=== PATIENT | male | born 1990 | race Caucasian/White ===

== ENCOUNTER 2019-09-10 08:02 | Inpatient (IN) | payer SELFPAY ==
[2019-09-10] VITALS (7 sets, daily range): BP systolic 105–139; BP diastolic 63–81; PULSE 102–114; RESP 16–19; TEMP 36.6–38; O2SAT 94–99; BMI 47.0
--- NOTE | 2019-09-10 08:06 | ED_ITS ---
HPI - General Adult General: Chief complaint: General Medical Stated complaint: VOMITING, RT LEG INFLAMED, BODY ACHES, REDNESS ON Time Seen by Provider: 09/10/19 08:06 History of Present Illness: HPI narrative: He 1-year-old male presents to the emergency room with right leg erythema and swelling woke him up around 3:00 this morning said fever with nausea and vomiting. He has congenital lymphedema that is quite severe in the left leg but does not extend to the right leg. He denies abdominal pain denies any hematemesis or coffee-ground emesis with the vomiting he has not had any diarrhea with denies any chest pain shortness of breath has not been any difficulty with bowel movements. They have been at his baseline. The left leg is swollen tender red and inflamed. He is not on any blood thinners. Onset (ago): hour(s) (Began at 3 AM on the day of presentation) Location: right and lower extremity Radiation: non-radiation Severity: mild Quality: burning Relieving factors: none Exacerbating factors: none Associated symptoms: Reports fevers/chills and vomiting; Deny chest pain, dyspnea, malaise or rash Treatments prior to arrival: none Review of Systems Const: Denies: fever(s), chills, body aches, change in appetite, fatigue or malaise ENMT: Denies: throat pain, ear or mastoid pain, nasal discharge or nasal congestion Card: Reports: swelling of feet/ankles and dyspnea on exertion; Denies: chest pain, edema or orthopnea Resp: Denies: dyspnea, productive cough or non-productive cough GI: Reports: vomiting : Denies: flank pain, dysuria, urinary frequency or urinary urgency Skin/Breast: Denies: rash or pruritus PFSH ED PFSH: Medical History GERD (gastroesophageal reflux disease) Lymphedema Obesity Surgical History History of appendectomy Family History Other Diabetes Hypertension Social History Smoking and tobacco status: never smoked Alcohol intake: never Substance/Drug Use: never Physical Exam Const: COMMON NORMALS: no acute distress GENERAL APPEARANCE: cooperative and comfortable ORIENTATION/CONSCIOUSNESS: Yes awake, Yes oriented to person, Yes oriented to place and Yes oriented to time HENMT: COMMON NORMALS: normocephalic, atraumatic, hearing grossly normal bilaterally, external ears normal, EAC's normal, TM's normal bilaterally, Normal nasal mucous membranes and turbinates present, moist oral mucous membranes and oropharynx normal HEAD & SCALP: normocephalic and atraumatic NOSE: Normal nasal mucous membranes and turbinates present EXTERNAL EAR: Yes external ears normal EXTERNAL AUDITORY CANAL: EAC's normal TYMPANIC MEMBRANE: TM's normal bilaterally Eye: COMMON NORMALS: Equal, round and reactive pupils present, EOMs intact bilaterally, conjunctivae normal and no scleral icterus CONJUNCTIVA: Yes conjunctivae normal PUPIL: Yes Equal, round and reactive pupils present Neck/C-Spine: COMMON NORMALS: full ROM, no lymphadenopathy, supple and no JVD Lymph: LYMPHATIC: no lymphadenopathy noted and no lymphedema noted Resp: COMMON NORMALS: normal respiratory effort, No retractions, No use of accessory muscles and clear to auscultation bilaterally AUSCULTATION: clear to auscultation bilaterally Cardio: COMMON NORMALS: no JVD, regular rate, regular rhythm and No murmurs present (Cardio) RATE: regular rate RHYTHM: regular rhythm GI: COMMON NORMALS: Soft to palpation and No hepatosplenomegaly present AUSCULTATION: Yes normoactive bowel sounds PALPATION: Yes Soft to palpation, No Tenderness to palpation present (GI), No Guarding due to palpation present (GI) and Yes No hepatosplenomegaly present Extremity: NARRATIVE EXTREMITY EXAM: Severe lymphedema that appears to be chronic of the left leg patient reports that that is baseline The right leg is has patchy red and inflamed areas that are tender to the touch minimally indurated no vesicles no skin breakdown or ulceration or decubitus ulcers are noted. There is no draining or abscess noted. GENERAL: Yes edema Neuro: SENSORIUM/ORIENTATION: Yes oriented to person, Yes oriented to place and Yes oriented to time Skin: COMMON NORMALS: no rashes or lesions noted GENERAL SKIN EXAM: no rashes or lesions noted Course Vital Signs: Vital signs: Vital Signs Temperature 100.4 F H 09/10/19 12:00 Pulse Rate 102 H 09/10/19 12:00 Respiratory Rate 18 09/10/19 12:00 Blood Pressure 118/81 09/10/19 12:00 Pulse Oximetry 99 09/10/19 12:00 MDM - General Adult MDM Narrative: Medical decision making narrative: Discussed with Dr. Schuster will admit to [facility] for IV antibiotics he will be the attending. Lab Data: Labs: Lab Results 09/10/19 09/10/19 09/10/19 Range/Units 09:20 09:20 09:20 WBC 26.3 H (4.0-10.0) 10^3/ uL RBC 5.53 H (4.1-5.3) 10^6/u L Hgb 14.8 (11.7-16.6) g/dL Hct 47.3 (42.0-52.0) % MCV 85.5 (80-94) fL MCH 26.8 L (28.0-34.0) pg MCHC 31.3 (30.0-36.0) g/dL RDW 13.4 (12.1-15.1) % Plt Count 279 (130-400) 10^3/c mm MPV 9.6 (7.4-10.4) fL Neut % (Auto) 96.3 % Lymph % (Auto) 1.1 % [place] % (Auto) 1.8 % Eos % (Auto) 0.0 % Baso % (Auto) 0.2 % Neut # (Auto) 25.4 H (1.8-7.7) 10^3/u L Lymph # (Auto) 0.3 L (0.8-4.8) 10^3/u L [place] # (Auto) 0.5 (0.2-0.9) 10^3/u L Eos # (Auto) 0.0 (0.0-0.8) 10^3/u L Baso # (Auto) 0.0 (0.0-0.1) 10^3/u L Nucleated RBC % (a uto) 0 % Nucleated RBCs # 0.0 /100WBC Sodium 136 (136-145) mmol/L Potassium 3.8 (3.5-5.1) mmol/L Chloride 99 (98-107) mmol/L Carbon Dioxide 26 (22-29) mmol/L Anion Gap 14.8 (5-19) BUN 15 (6-20) mg/dL Creatinine 1.1 (0.7-1.2) mg/dL GFR Calculation 78.1 L (90-130) mL/min Glucose 99 (65-115) mg/dL Calculated Osmolal ity 278 L (285-295) mOsm/k g Lactate 2.1 (0.5-2.2) mmol/L Calcium 9.6 (8.5-10.5) mg/dL Total Bilirubin 0.5 (0.15-1.2) mg/dL AST 31 (0-40) U/L ALT 48 H (0-41) U/L Alkaline Phosphata se 72 (40-130) IU/L Total Protein 6.7 (6.6-8.7) g/dL Albumin 3.9 (3.5-5.2) g/dL Globulin 2.8 (1.3-4.6) g/dL TSH (0.27-4.20) uIU/ mL Urine Color (Yellow) Urine Appearance (CLEAR) Urine pH (5-7) Ur Specific Gravit y (1.005-1.030) Urine Protein (Negative) Urine Glucose (UA) (Normal) Urine Ketones (Negative) Urine Blood (Negative) Urine Nitrate (Negative) Urine Bilirubin (NEGATIVE) Urine Urobilinogen (Negative) mg/dL Ur Leukocyte Deisy ase (Negative) 09/10/19 09/10/19 Range/Units 09:20 09:32 WBC (4.0-10.0) 10^3/ uL RBC (4.1-5.3) 10^6/u L Hgb (11.7-16.6) g/dL Hct (42.0-52.0) % MCV (80-94) fL MCH (28.0-34.0) pg MCHC (30.0-36.0) g/dL RDW (12.1-15.1) % Plt Count (130-400) 10^3/c mm MPV (7.4-10.4) fL Neut % (Auto) % Lymph % (Auto) % [place] % (Auto) % Eos % (Auto) % Baso % (Auto) % Neut # (Auto) (1.8-7.7) 10^3/u L Lymph # (Auto) (0.8-4.8) 10^3/u L [place] # (Auto) (0.2-0.9) 10^3/u L Eos # (Auto) (0.0-0.8) 10^3/u L Baso # (Auto) (0.0-0.1) 10^3/u L Nucleated RBC % (a uto) % Nucleated RBCs # /100WBC Sodium (136-145) mmol/L Potassium (3.5-5.1) mmol/L Chloride (98-107) mmol/L Carbon Dioxide (22-29) mmol/L Anion Gap (5-19) BUN (6-20) mg/dL Creatinine (0.7-1.2) mg/dL GFR Calculation (90-130) mL/min Glucose (65-115) mg/dL Calculated Osmolal ity (285-295) mOsm/k g Lactate (0.5-2.2) mmol/L Calcium (8.5-10.5) mg/dL Total Bilirubin (0.15-1.2) mg/dL AST (0-40) U/L ALT (0-41) U/L Alkaline Phosphata se (40-130) IU/L Total Protein (6.6-8.7) g/dL Albumin (3.5-5.2) g/dL Globulin (1.3-4.6) g/dL TSH 1.01 (0.27-4.20) uIU/ mL Urine Color Yellow (Yellow) Urine Appearance Clear (CLEAR) Urine pH 7.0 (5-7) Ur Specific Gravit y 1.005 (1.005-1.030) Urine Protein Neg (Negative) Urine Glucose (UA) Norm (Normal) Urine Ketones Negative (Negative) Urine Blood Neg (Negative) Urine Nitrate Negative (Negative) Urine Bilirubin Neg (NEGATIVE) Urine Urobilinogen Norm (Negative) mg/dL Ur Leukocyte Deisy ase Negative (Negative) Discharge Plan Discharge Admit Provider: Valentin Gonzalez Clinical Impression: Cellulitis, Lymphedema, Obesity Condition: Stable Interventions: ED Discharge Assessment Last Done: 09/10/19 11:32 ED Charges Last Done: 09/10/19 11:32 Discharge Date/Time: 09/10/19 11:37 Coding Level of Care Code ED Manager Cardiac Cath for Andig Israel
--- NOTE | 2019-09-10 08:48 | USCV_ITS ---
Garo Scruggs Age: 29 Gender: M : 1990 Exam Date: 09/10/2019 09:05 Ordering Phys: Josué Canas DO Technologist: Naren Almeida Exam Location: [facility] [place]_ Indication: RT LEG PAIN AND SWELLING HISTORY: Lower extremity pain. PROCEDURES: Venous duplex imaging was performed in only the right lower extremity. The following venous structures were evaluated: common femoral vein, profunda vein, proximal portion of the greater saphenous vein, superficial femoral vein, and the popliteal vein. In addition, the posterior tibial and peroneal trunk were evaluated. FINDINGS: Normal 2-D Doppler and augmentation and compressibility throughout the lower extremity venous structures. Additional imaging through the proximal calf veins also reveals no thrombus. Limited evaluation of the greater saphenous vein is patent with no thrombus. CONCLUSIONS No DVT right lower extremity. Dr. Debra Azevedo DO (Electronically Signed) Final Date: 10 Sep 2019 11:56 S
--- NOTE | 2019-09-10 08:48 | ECG_ITS ---
Measurements Intervals [place] Rate: 107 P: 37 WA: 132 QRS: 44 QRSD: 110 T: 36 QT: 310 QTc: 415 SINUS TACHYCARDIA INCOMPLETE RIGHT BUNDLE BRANCH BLOCK [90+ ms QRS DURATION, TERMINAL R IN V1/V2, 40+ ms S IN I/aVL/V4/V5/V6] ABNORMAL RHYTHM ECG No previous ECG available for comparison Electronically Signed On 09-10-2019 20:31:33 CDT by Hortencia Hyman M.D. [email or web address]
--- NOTE | 2019-09-10 09:21 | XR_ITS ---
WS: [id number] PORTABLE CHEST HISTORY: dyspnea/cough COMPARISON: 12/06/2010 Lungs are clear and well expanded. No pleural effusion or pneumothorax. Cardiac size: Normal. Mediastinum/Aorta: Normal mediastinum. No osseous abnormality seen. XR/XR chest 1V portable [id number] IMPRESSION: Unremarkable portable chest.
[2019-09-10 09:37] LABS: Basophils % 0.2 %; Hematocrit 47.3 % (42.0-52.0); Hemoglobin 14.8 g/dL (11.7-16.6); Lymphocytes # 0.3 10^3/uL (0.8-4.8); Lymphocytes % 1.1 %; Mean Corpuscular HGB Conc 31.3 g/dL (30.0-36.0); Mean Corpuscular Hemoglobin 26.8 pg (28.0-34.0); Mean Corpuscular Volume 85.5 fL (80-94); Mean Platelet Volume 9.6 fL (7.4-10.4); Monocytes # 0.5 10^3/uL (0.2-0.9); Monocytes % 1.8 %; Neutrophils # 25.4 10^3/uL (1.8-7.7); Neutrophils % 96.3 %; Nucleated Red Blood Cells % 0 %; Platelet Count 279 10^3/cmm (130-400); Red Blood Count 5.53 10^6/uL (4.1-5.3); Red Cell Distribution Width 13.4 % (12.1-15.1); White Blood Count 26.3 10^3/uL (4.0-10.0)
[2019-09-10] MEDS: cefTRIAXone 1,000 MG in sodium chloride 0.9% (plus) 50 ML 100 MG IV (09:42)
[2019-09-10 09:52] LABS: Alanine Aminotransferase 48 U/L (0-41); Albumin Level 3.9 g/dL (3.5-5.2); Alkaline Phosphatase 72 IU/L (40-130); Anion Gap 14.8 (5-19); Aspartate Amino Transferase 31 U/L (0-40); Blood Urea Nitrogen 15 mg/dL (6-20); Calcium 9.6 mg/dL (8.5-10.5); Carbon Dioxide 26 mmol/L (22-29); Chloride 99 mmol/L (98-107); Globulin 2.8 g/dL (1.3-4.6); Glomerular Filtration Rate 78.1 mL/min (90-130); Glucose 99 mg/dL (65-115); Lactate (Lactic Acid level) 2.1 mmol/L (0.5-2.2); Osmolality Calculated 278 mOsm/kg (285-295); Potassium 3.8 mmol/L (3.5-5.1); Sodium 136 mmol/L (136-145); Total Bilirubin 0.5 mg/dL (0.15-1.2); Total Protein 6.7 g/dL (6.6-8.7)
[2019-09-10 10:10] LABS: Add Urine Microscopic? NO
[2019-09-10 10:19] LABS: Bilirubin Urine Neg (NEGATIVE); Blood Urine Neg (Negative); Glucose Urine UA Norm (Normal); Ketones Urine Negative (Negative); Leukocyte Esterase Urine Negative (Negative); Nitrate Urine Negative (Negative); Protein Urine Neg (Negative); Specific Gravity, Urine 1.005 (1.005-1.030); Urine Appearance Clear (CLEAR); Urine Color Yellow (Yellow); Urobilinogen Urine Norm (Negative)
[2019-09-10] MEDS: ondansetron 2 mg/ML SDV 2 mL 4 MG IVP (10:26)
--- NOTE | 2019-09-10 12:15 | PM.HP ---
Providers/Chief Complaint Admitting Physician: Valentin Gonzalez MD Primary Care Provider: ARNEL Ryan Chief Complaint: VOMITING, RT LEG INFLAMED, BODY ACHES, REDNESS ON History of Present Illness Garo Scruggs is a 29 year old male who presents to the hospital with history of fever, right leg redness, some nausea apparently since 3 AM this morning. He reports no symptoms yesterday. He denies any chest pain or shortness of breath. He reports he has had repetitive episodes of cellulitis in the past, secondary to his underlying lymphedema. Review of Systems General: Reports: 10 or more systems reviewed and unremarkable except in HPI and below Const: Reports: fever(s), chills and body aches Eyes: Denies: change in vision ENMT: Denies: throat pain Card: Denies: chest pain Resp: Denies: dyspnea GI: Reports: nausea; Denies: abdominal pain : Denies: flank pain Musc: Denies: neck pain Skin/Breast: Reports: rash Neuro: Denies: headache(s) Psych: Denies: anxiety Endo: Denies: polyuria Ector/Lymph: Denies: easy bruising All/Imm: Denies: urticaria Medications/Allergies Home Medications Medication Instructions Recorded Confirmed Last Taken Type No Known Home Medications 09/10/19 09/10/19 Unknown History Allergies Allergy/AdvReac Type Severity Reaction Status Date / Time clindamycin Allergy Unknown Unknown Verified 09/10/19 08:41 Sulfa (Sulfonamide Allergy Unknown Unknown Verified 09/10/19 11:09 Antibiotics) PFSH Acute PFSH: Medical History (Updated 09/10/19 @ 12:24 by Valentin Gonzalez MD) GERD (gastroesophageal reflux disease) Lymphedema Obesity Surgical History (Updated 09/10/19 @ 12:21 by Valentin Gonzalez MD) History of appendectomy Family History (Updated 09/10/19 @ 12:22 by Valentin Gonzalez MD) Other Diabetes Hypertension Social History (Updated 09/10/19 @ 12:22 by Valentin Gonzalez MD) Smoking and tobacco status: never smoked Alcohol intake: never Substance/Drug Use: never Supplemental PFSH Information: History of left thumb surgery, history of lymphedema surgery Vitals/I&O/Wt Last Vital Signs Temp 100.4 F H 09/10/19 12:00 Pulse 102 H 09/10/19 12:00 Resp 18 09/10/19 12:00 BP 118/81 09/10/19 12:00 Pulse Ox 99 09/10/19 12:00 Weight last 48 hrs Weight 136.078 kg Physical Exam Narrative: EXAM NARRATIVE: General exam demonstrates a white male in no apparent distress HEENT: Pupils equally round. Oropharynx clear. Neck is supple, obese, no lymphadenopathy or thyromegaly Cardiovascular regular rate and rhythm without murmur, no S3 or S4 Lungs clear no wheezing or crackles Abdomen is soft obese nontender with positive bowel sounds. normal male. No evidence of cellulitis extending to scrotum Extremities bilateral lymphedema left greater than right. Erythematous skin, with increased warmth but good capillary refill noted on the right. This is fairly extensive is and goes up to the upper thigh. The knee seems to have some clearing. Data : 09/10/19 09:20 09/10/19 09:20 Micro: Microbiology 09/10/19 09:20 Blood Culture - Preliminary Blood SPECIMEN COLLECTED Other data: EKG demonstrates rate of 107, consistent with sinus tachycardia, normal axis, incomplete right bundle ALT slightly elevated at 48. Urinalysis negative. Chest x-ray negative Venous duplex right lower extremity negative. A&P Assessment and plan (1) Cellulitis: Significant infection, with elevated white blood cell count, and fever. He is not hypotensive. Initial lactate normal. Blood cultures drawn Zosyn, vancomycin initiated Full admission Status: Acute (2) Lymphedema: Congenital, chronic, and likely increases risk of cellulitis. Status: Acute (3) Obesity: Status: Acute Additional A&P Information Full code Lovenox for DVT prophylaxis Attestations Medical Necessity Statement*: Will need greater than 2 midnight stay for evaluation and treatment of cellulitis right lower extremity. Coding Level of Care Code Acute Tax Services Manager for [facility] Diagnoses Cellulitis L03.90 Lymphedema I89.0 Obesity E66.9
[2019-09-10] MEDS: enoxaparin 40 mg/0.4 mL Syringe SUBCUT (12:56)
[2019-09-10] MEDS: HYDROcodone-acetaminophen 5-325 mg Tablet 1 TAB PO ×2 (12:57→17:53)
[2019-09-10] MEDS: D5-NS 0.45% + KCL 20 mEq 20 MEQ/1,000 ML BAG 100 MEQ IV ×2 (12:57→21:58)
[2019-09-10] MEDS: piperacillin-tazobactam 3.375 GM in sodium chloride 0.9% (plus) 50 ML IV ×2 (12:57→21:00)
[2019-09-10 13:43] LABS: Thyroid Stimulating Hormone 1.01 uIU/mL (0.27-4.20)
[2019-09-11] MEDS: HYDROcodone-acetaminophen 5-325 mg Tablet 1 TAB PO ×4 (02:55→20:28)
[2019-09-11 04:00] VITALS: BP 109/63; PULSE 102; RESP 18; TEMP 36.7; O2SAT 94
[2019-09-11 04:50] LABS: Basophils % 0.2 %; Eosinophils # 0.1 10^3/uL (0.0-0.8); Eosinophils % 0.2 %; Hematocrit 39.6 % (42.0-52.0); Hemoglobin 12.2 g/dL (11.7-16.6); Lymphocytes # 0.9 10^3/uL (0.8-4.8); Lymphocytes % 4.4 %; Mean Corpuscular HGB Conc 30.8 g/dL (30.0-36.0); Mean Corpuscular Hemoglobin 26.2 pg (28.0-34.0); Mean Corpuscular Volume 85.2 fL (80-94); Mean Platelet Volume 10.2 fL (7.4-10.4); Monocytes # 0.7 10^3/uL (0.2-0.9); Monocytes % 3.4 %; Neutrophils # 18.5 10^3/uL (1.8-7.7); Neutrophils % 91.3 %; Nucleated Red Blood Cells % 0 %; Platelet Count 248 10^3/cmm (130-400); Red Blood Count 4.65 10^6/uL (4.1-5.3); Red Cell Distribution Width 13.9 % (12.1-15.1); White Blood Count 20.3 10^3/uL (4.0-10.0)
[2019-09-11] MEDS: piperacillin-tazobactam 3.375 GM in sodium chloride 0.9% (plus) 50 ML IV ×3 (05:06→20:29)
[2019-09-11 05:11] LABS: Anion Gap 14.5 (5-19); Blood Urea Nitrogen 12 mg/dL (6-20); Calcium 8.4 mg/dL (8.5-10.5); Carbon Dioxide 25 mmol/L (22-29); Chloride 100 mmol/L (98-107); Glomerular Filtration Rate 78.1 mL/min (90-130); Glucose 115 mg/dL (65-115); Osmolality Calculated 279 mOsm/kg (285-295); Potassium 3.5 mmol/L (3.5-5.1); Sodium 136 mmol/L (136-145)
[2019-09-11] MEDS: acetaminophen 325 mg Tablet 650 MG PO (07:12)
[2019-09-11] MEDS: D5-NS 0.45% + KCL 20 mEq 20 MEQ/1,000 ML BAG 100 MEQ IV ×2 (07:20→16:11)
[2019-09-11 07:21] VITALS: BP 113/70; PULSE 104; RESP 20; TEMP 37.4; O2SAT 97
[2019-09-11 09:45] LABS: Vancomycin Trough 16.6 ug/mL (10-15)
--- NOTE | 2019-09-11 10:52 | PM.PN ---
Subjective Subjective: Interval history: Garo feels about the same. Leg does not hurt worse but really is not that much better. Medications: Reviewed: Yes Vitals/I&O/Wt Last Vital Signs Temp 99.4 F 09/11/19 07:21 Pulse 104 H 09/11/19 07:21 Resp 20 H 09/11/19 07:21 BP 113/70 09/11/19 07:21 Pulse Ox 97 09/11/19 07:21 09/10/19 09/11/19 09/11/19 22:59 06:59 14:59 Intake Total 1681.667 / 2221.667 300 / 2521.667 1176.667 / 1176.667 Output Total 700 / 700 Balance 1681.667 / 2221.667 -400 / 8791.713 4775.667 / 1176.667 Weight last 48 hrs Weight 136.078 kg Physical Exam Narrative: EXAM NARRATIVE: General exam no apparent distress Cardiovascular regular rate and rhythm without murmur, no S3 or S4 Lungs clear no wheezing or crackles Abdomen is soft obese nontender with positive bowel sounds. Extremities bilateral lymphedema left greater than right. Area of cellulitis unchanged since yesterday and is not gone outside of marking denoting border Data : 09/11/19 04:10 09/11/19 04:10 Micro: Microbiology 09/10/19 09:20 Blood Culture - Preliminary Blood NEGATIVE TO DATE 09/10/19 14:30 Blood Culture - Preliminary Blood SPECIMEN COLLECTED A&P Assessment and plan (1) Cellulitis: Significant infection, with elevated white blood cell count, and fever. He is not hypotensive. Initial lactate normal. Blood cultures negative to date Continue vancomycin and Zosyn. White blood cell count appears to be decreasing. Hopefully this will be improving by tomorrow. Status: Acute (2) Lymphedema: Congenital, chronic, and likely increases risk of cellulitis. Status: Acute (3) Obesity: Status: Acute Additional A&P Information Full code Lovenox for DVT prophylaxis Attestations Medical Necessity Statement*: Needs continued hospital stay for IV antibiotics related to cellulitis. Coding Level of Care Code Acute Wood Die Maker for [facility] Diagnoses Cellulitis L03.90 Lymphedema I89.0 Obesity E66.9
[2019-09-11 10:58] VITALS: BP 104/69; PULSE 89; RESP 18; TEMP 37.2; O2SAT 96
--- NOTE | 2019-09-11 11:29 | PC.CHAP ---
Pastoral Care Encounter/Spiritual Assessment Type of Contact [] Declined magneto repairer visit [] Patient/Family/Request visit [] Outpatient visit [] Follow-up visit [] Physician referral [] Code/Alert [x] Routine visit [] Staff referral [] Actively dying [] Patient sleeping [] Family support [] [] Out of room [] Palliative care [] [] Receiving care in room [] Pre-surgical visit [] Trauma [] Long length of stay [] ICU visit [] Other: Relational/Emotional Strength [x] Patient feels connected with others/family/visitors/staff [] Distress [] Loneliness/isolation [] Abandonment Spirituality of Patient [x] Person of [place] [] Attends Judaism of their [place] [] Believes in Prayer [] Reads Bible or Mu-Ism materials [] There are Spiritual issues to be addressed Janitorial Manager Interventions [x] Prayer [x] Active listening [] Non-anxious presence [] Spiritual/emotional support [] Crisis/trauma care [] Spiritual counseling [] Bereavement support [] Provided bereavement packet [] Provided Bible/devotional materials [] Provided toy/stuffed animal, coloring book to patient or family member [] Provided Communion [] Anointing/[place] [] Salvation [] Completed spiritual assessment [] Other: Impact on Illness or Injury [] Angry [] Fearful [] Anxious [] Often cries [] Exhaustion [] Unable to work [] Unable to attend anabaptism [] Unable to walk/stand [] Unable to read [] Unable to drive [] Unable to eat/drink [] Unable to sleep [] Unable to be with family [] Patient intubated [x] Other: Summary Patient appeared to be under the affects of his pain med's and was semi-conscious. Time spent with patient 5 minutes
[2019-09-11] MEDS: enoxaparin 40 mg/0.4 mL Syringe SUBCUT (14:43)
[2019-09-11 15:39] VITALS: BP 117/68; PULSE 94; RESP 20; TEMP 38.6; O2SAT 97
[2019-09-11] MEDS: nicotine 21 mg Patch 1 PATCH TRANSDERMA (16:09)
[2019-09-11 19:19] VITALS: BP 118/61; PULSE 100; RESP 18; TEMP 37.8; O2SAT 98
[2019-09-12] VITALS: BP 106/65; PULSE 88; RESP 18; TEMP 37.1; O2SAT 97
[2019-09-12] MEDS: D5-NS 0.45% + KCL 20 mEq 20 MEQ/1,000 ML BAG 100 MEQ IV (00:22)
[2019-09-12] MEDS: HYDROcodone-acetaminophen 5-325 mg Tablet 1 TAB PO ×5 (00:22→20:58)
[2019-09-12 03:25] VITALS: BP 101/62; PULSE 76; RESP 18; TEMP 37; O2SAT 98
[2019-09-12] MEDS: piperacillin-tazobactam 3.375 GM in sodium chloride 0.9% (plus) 50 ML IV ×4 (04:57→20:58)
[2019-09-12 07:29] VITALS: BP 119/74; PULSE 82; RESP 20; TEMP 36.9; O2SAT 97
[2019-09-12] MEDS: nicotine 21 mg Patch 1 PATCH TRANSDERMA (09:07)
--- NOTE | 2019-09-12 10:19 | P.PN_ITS ---
Subjective Subjective: Interval history: Garo reports his leg is better but still a little tight. Fever was noted yesterday. No numbness or tingling in his toes Medications: Reviewed: Yes Vitals/I&O/Wt Last Vital Signs Temp 98.5 F 09/12/19 07:29 Pulse 82 09/12/19 07:29 Resp 20 H 09/12/19 07:29 BP 119/74 09/12/19 07:29 Pulse Ox 97 09/12/19 07:29 09/11/19 09/12/19 09/12/19 22:59 06:59 14:59 Intake Total 1545 / 3261.667 868.333 / 4130.000 480 / 480 Output Total 400 / 1000 880 / 1880 Balance 1145 / 2261.667 -11.667 / 2250.000 480 / 480 Physical Exam Narrative: EXAM NARRATIVE: General exam no apparent distress Cardiovascular regular rate and rhythm without murmur, no S3 or S4 Lungs clear no wheezing or crackles Abdomen is soft obese nontender with positive bowel sounds. Extremities bilateral lymphedema left greater than right. Cellulitis appears slightly improved. Edema still present. Data : 09/11/19 04:10 09/11/19 04:10 Micro: Microbiology 09/10/19 14:30 Blood Culture - Preliminary Blood NEGATIVE TO DATE 09/10/19 09:20 Blood Culture - Preliminary Blood NEGATIVE TO DATE A&P Assessment and plan (1) Cellulitis: Significant infection, with elevated white blood cell count, and fever. He is not hypotensive. Initial lactate normal. Blood cultures negative to date Continue vancomycin and Zosyn. Laboratory not done today. Will repeat tomorrow. Overall he has had some slight improvement. He did have fever yesterday afternoon, and will certainly need to be afebrile for over 24 hours prior to discharge. Status: Acute (2) Lymphedema: Congenital, chronic, and likely increases risk of cellulitis. Status: Acute (3) Obesity: Status: Acute Additional A&P Information Full code Lovenox for DVT prophylaxis Attestations Medical Necessity Statement*: Needs continued hospital stay for IV antibiotics secondary to cellulitis Coding Level of Care Code Acute Branch Office Administrator for [facility] Diagnoses Cellulitis L03.90 Lymphedema I89.0 Obesity E66.9
[2019-09-12] MEDS: enoxaparin 40 mg/0.4 mL Syringe SUBCUT (11:36)
[2019-09-12 12:00] VITALS: BP 132/68; PULSE 74; RESP 17; TEMP 36.9; O2SAT 99
[2019-09-12 16:00] VITALS: BP 118/71; PULSE 79; RESP 19; TEMP 36.9; O2SAT 94
[2019-09-12 20:00] VITALS: BP 123/72; PULSE 89; RESP 18; TEMP 36.8; O2SAT 96
[2019-09-13] VITALS: BP 121/76; PULSE 82; RESP 18; TEMP 36.7; O2SAT 97
[2019-09-13] MEDS: HYDROcodone-acetaminophen 5-325 mg Tablet 1 TAB PO (00:44)
[2019-09-13 04:00] VITALS: BP 114/71; PULSE 76; RESP 18; TEMP 36.6; O2SAT 98
[2019-09-13] MEDS: piperacillin-tazobactam 3.375 GM in sodium chloride 0.9% (plus) 50 ML IV (05:28)
[2019-09-13 05:58] LABS: Basophils % 0.2 %; Eosinophils # 0.2 10^3/uL (0.0-0.8); Eosinophils % 2.5 %; Hematocrit 38.9 % (42.0-52.0); Hemoglobin 11.6 g/dL (11.7-16.6); Mean Corpuscular HGB Conc 29.8 g/dL (30.0-36.0); Mean Corpuscular Hemoglobin 26.3 pg (28.0-34.0); Mean Corpuscular Volume 88.2 fL (80-94); Mean Platelet Volume 10.1 fL (7.4-10.4); Monocytes # 0.6 10^3/uL (0.2-0.9); Monocytes % 7.1 %; Neutrophils # 6.2 10^3/uL (1.8-7.7); Neutrophils % 76.8 %; Nucleated Red Blood Cells % 0 %; Platelet Count 239 10^3/cmm (130-400); Red Blood Count 4.41 10^6/uL (4.1-5.3); Red Cell Distribution Width 13.8 % (12.1-15.1)
[2019-09-13 06:22] LABS: Anion Gap 15.4 (5-19); Blood Urea Nitrogen 15 mg/dL (6-20); Calcium 9.1 mg/dL (8.5-10.5); Carbon Dioxide 27 mmol/L (22-29); Chloride 102 mmol/L (98-107); Glomerular Filtration Rate 64.4 mL/min (90-130); Glucose 108 mg/dL (65-115); Osmolality Calculated 289 mOsm/kg (285-295); Potassium 3.4 mmol/L (3.5-5.1); Sodium 141 mmol/L (136-145)
[2019-09-13 08:40] VITALS: BP 115/67; PULSE 78; RESP 16; TEMP 36.7; O2SAT 97
[2019-09-13] MEDS: nicotine 21 mg Patch 1 PATCH TRANSDERMA (08:49)
[2019-09-13] MEDS: acetaminophen 325 mg Tablet 650 MG PO (09:01)
[2019-09-13 11:03] VITALS: PULSE 73; O2SAT 98
[2019-09-13 11:28] VITALS: BP 127/74; PULSE 77; RESP 18; TEMP 36.4; O2SAT 98
--- NOTE | 2019-09-13 11:38 | PM.DCS ---
Discharge Providers Date of Admission: 09/10/19 10:18 Date of Discharge: September 13, 2019 Attending Provider at Admission: Valentin Gonzalez MD Attending Provider at Discharge: Valentin Gonzalez MD Primary Care Provider: ARNEL Ryan Diagnoses at Discharge Discharge Diagnosis (1) Cellulitis: Status: Acute Problem details: Improved. Discharged on doxycycline, cefdinir (2) Lymphedema: Status: Acute (3) Obesity: Status: Acute Reason for Visit Reason for Visit: Reason For Visit: VOMITING, RT LEG INFLAMED, BODY ACHES, REDNESS ON Hospital Course Hospital Course: Garo is a 29-year-old white male who presented to the hospital with concerns of cellulitis right lower extremity, fever. He was placed on vancomycin and Zosyn, and had gradual improvement in his white blood cell count, and clinical status to where he could be discharged on September 12. At that time he had been afebrile for over 36 hours and erythema had significantly improved. He was able to ambulate. Blood cultures were negative. Secondary to allergies of clindamycin which was vomiting, sulfa doxycycline and cefdinir were chosen on discharge. Physical Exam Narrative: EXAM NARRATIVE: General exam no apparent distress Cardiovascular regular in rhythm without murmur Lungs clear Abdomen is obese soft with positive bowel sounds Extremities bilateral lymphedema. Right lower extremity with much improved erythema. Discharge Data Data Completed and Pending: Completed Studies During Hospitalization Category Date Time Status XR chest 1V leo ble [id number] Stat Exams 09/10/19 09:21 [place] [id number] Stat Ultrasound 09/10/19 08:48 Completed Pending at discharge Category Date Time Status Blood Culture Sta t Lab 09/10/19 14:30 Results Labs from last 24 hours 09/13/19 09/13/19 05:02 05:02 WBC 8.0 RBC 4.41 Hgb 11.6 L Hct 38.9 L MCV 88.2 MCH 26.3 L MCHC 29.8 L RDW 13.8 Plt Count 239 MPV 10.1 Neut % (Auto) 76.8 Lymph % (Auto) 13.0 [place] % (Auto) 7.1 Eos % (Auto) 2.5 Baso % (Auto) 0.2 Neut # (Auto) 6.2 Lymph # (Auto) 1.0 [place] # (Auto) 0.6 Eos # (Auto) 0.2 Baso # (Auto) 0.0 Nucleated RBC % (a uto) 0 Nucleated RBCs # 0.0 Sodium 141 Potassium 3.4 L Chloride 102 Carbon Dioxide 27 Anion Gap 15.4 BUN 15 Creatinine 1.3 H GFR Calculation 64.4 L Glucose 108 Calculated Osmolal ity 289 Calcium 9.1 Vitals: Last Vital Signs Temp 97.6 F 09/13/19 11:28 Pulse 77 09/13/19 11:28 Resp 18 09/13/19 11:28 BP 127/74 09/13/19 11:28 Pulse Ox 98 09/13/19 11:28 Discharge Plan Discharge Patient Disposition: Home, Self-Care Condition: Stable Prescriptions: New cefdinir 300 mg capsule 300 mg PO BID 7 Days Qty: 14 RF: 0 doxycycline hyclate 100 mg capsule 100 mg PO BID 7 Days Qty: 14 RF: 0 No Action No Known Home Medications RF: 0 Discharge Orders: Discharge Order (Routine); Ordered 09/13/19 Ordered By: Valentin Gonzalez Discharge Diet: Regular Discharge Activity: Increase activity as tolerated Activity Restrictions/Additional Instructions: Keep leg elevated as much as possible. Encourage fluids Follow-up with primary care provider next week, 3 to 5 days Discharge Attestations Time Spent in Discharge Care*: greater than 30 min Quality Metrics Clinical Quality Measures During this hospital stay, did patient experience: None Coding Level of Care Code Acute [employer] Hand for [facility] Diagnoses Cellulitis L03.90 Lymphedema I89.0 Obesity E66.9
== END 2019-09-13 18:20 | disposition home or self-care (01) | DRG 603 ==
LOC: ER 08:25 → MEDSURG 11:22
PROVIDERS: Family Medicine; Admitting Provider Internal Medicine; PCP Nurse Practitioner; Visit Provider Internal Medicine
DX: L03.115 Cellulitis of right lower limb (principal); Z68.42 Body mass index [BMI] 45.0-49.9, adult; I89.0 Lymphedema, not elsewhere classified; E66.9 Obesity, unspecified; Z88.2 Allergy status to sulfonamides
CPT/HCPCS: 12345; 36415; 71045; 80048; 80053; 80202; 81003; 83605; 84443; 85025; 87040; 93005; 93971; 96372; 96375; 99282; J0696; J1650; J2405; J2543; J3370; J7050

== ENCOUNTER 2020-01-12 08:28 | Inpatient (IN) | payer SELFPAY ==
[2020-01-12] VITALS (11 sets, daily range): BP systolic 109–152; BP diastolic 71–88; PULSE 56–76; RESP 16–20; TEMP 36.6–37.1; O2SAT 93–99; BMI 47.0
--- NOTE | 2020-01-12 08:46 | ED_ITS ---
HPI - Abdominal Pain General: Chief Complaint: Abdominal Pain Stated Complaint: ABD PAIN/D/N/V Time Seen by Provider: 01/12/20 08:33 History of Present Illness: HPI narrative: 29-year-old male presents to the emergency room with complaint of abdominal pain seems to be more upper abdominal although its initially was very generalized. He does not localize it beyond the upper abdominal area. This began 3 nights ago he has had diarrhea cramping and vomiting he denies any dysuria no sinus congestion no fever no cough no shortness of breath. He did have a little bit of bright red blood on the toilet paper after having a bowel movement but did not discolor the toilet water is not had any melenic stools he has occasionally had some acholic stools. 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 Denies any hematemesis. MD elicited complaint: abdominal pain Pertinent past history: none Onset (ago): day(s) (3) Pain Consistency: constant Location: Diffuse and Epigastric Severity: moderate Quality: cramping Radiation: RUQ Migration to: no migration Exacerbating factors: nothing Relieving factors: nothing Associated Symptoms: Reports anorexia, bloating, change in bowel habits, change in stool character, chills, GI cramping, diarrhea, loose stools, nausea, poor appetite and vomiting; Denies belching, coffee ground emesis, constipation, dyspepsia, dysuria, excessive flatus, fever(s), heartburn, hematochezia, hematuria, hematemesis, fecal incontinence, melena and syncope Review of Systems Const: Reports: chills; Denies: fever(s) ENMT: Denies: throat pain, ear or mastoid pain, nasal discharge or nasal congestion Card: Denies: syncope Resp: Denies: dyspnea, productive cough or non-productive cough GI: Reports: nausea, vomiting, diarrhea, bloating, GI cramping, change in bowel habits and change in stool character; Denies: hematemesis, coffee ground emesis, heartburn, constipation, belching, excessive flatus, fecal incontinence, hematochezia or melena : Denies: dysuria or hematuria Skin/Breast: Denies: rash or pruritus PFS ED PFSH: Medical History GERD (gastroesophageal reflux disease) Lymphedema Obesity Surgical History History of appendectomy History of hernia repair Family History Other Diabetes Hypertension Social History Smoking and tobacco status: never smoked Alcohol intake: current Alcohol intake frequency: holidays/special occasions only Physical Exam Const: COMMON NORMALS: no acute distress GENERAL APPEARANCE: cooperative and comfortable NUTRITIONAL APPEARANCE: obese morbidly obese ORIENTATION/CONSCIOUSNESS: Yes awake, Yes oriented to person, Yes oriented to place and Yes oriented to time HENMT: COMMON NORMALS: normocephalic, atraumatic and hearing grossly normal bilaterally HEAD & SCALP: normocephalic and atraumatic Eye: COMMON NORMALS: Equal, round and reactive pupils present, EOMs intact bilaterally, conjunctivae normal and no scleral icterus CONJUNCTIVA: Yes conjunctivae normal PUPIL: Yes Equal, round and reactive pupils present Neck/C-Spine: COMMON NORMALS: no JVD Resp: COMMON NORMALS: normal respiratory effort, No retractions, No use of accessory muscles and clear to auscultation bilaterally AUSCULTATION: clear to auscultation bilaterally Cardio: COMMON NORMALS: no JVD, regular rate, regular rhythm and No murmurs present (Cardio) RATE: regular rate RHYTHM: regular rhythm GI: COMMON NORMALS: No hepatosplenomegaly present AUSCULTATION: Yes normoactive bowel sounds PALPATION: Yes Tenderness to palpation present (GI) Details: LUQ, RUQ and other, No Guarding due to palpation present (GI) and Yes No hepatosplenomegaly present Extremity: GENERAL: Yes edema (3+ edema bilateral lower extremities slightly worse on left than the right) Neuro: SENSORIUM/ORIENTATION: Yes oriented to person, Yes oriented to place and Yes oriented to time Skin: COMMON NORMALS: no rashes or lesions noted GENERAL SKIN EXAM: no rashes or lesions noted Course Vital Signs: Vital signs: Vital Signs Temperature 97.3 F L 01/13/20 13:23 Pulse Rate 84 01/13/20 13:23 Respiratory Rate 18 01/13/20 13:23 Blood Pressure 124/76 01/13/20 13:23 Pulse Oximetry 95 09/15/20 13:23 MDM - Abdominal Pain MDM Narrative: Medical decision making narrative: Admitted for IV fluid support antibiotics and antiemetics. Dr. Pineda to admit greatest consult for future endoscopy Lab Data: Labs: Lab Results 01/12/20 01/12/20 01/12/20 Range/Units 10:10 10:10 10:10 WBC 11.1 H (4.0-10.0) 10^3/ uL RBC 5.42 H (4.1-5.3) 10^6/u L Hgb 14.4 (11.7-16.6) g/dL Hct 46.8 (42.0-52.0) % MCV 86.3 (80-94) fL MCH 26.6 L (28.0-34.0) pg MCHC 30.8 (30.0-36.0) g/dL RDW 13.2 (12.1-15.1) % Plt Count 325 (130-400) 10^3/c mm MPV 9.7 (7.4-10.4) fL Neut % (Auto) 79.6 % Lymph % (Auto) 12.4 % Butler % (Auto) 5.7 % Eos % (Auto) 1.4 % Baso % (Auto) 0.4 % Neut # (Auto) 8.85 H (1.8-7.7) 10^3/u L Lymph # (Auto) 1.4 (0.8-4.8) 10^3/u L Butler # (Auto) 0.6 (0.2-0.9) 10^3/u L Eos # (Auto) 0.2 (0.0-0.8) 10^3/u L Baso # (Auto) 0.0 (0.0-0.1) 10^3/u L Nucleated RBC % (a uto) 0 % Nucleated RBCs # 0.0 /100WBC ESR 14 H (0-10) mm/hr Sodium 141 (136-145) mmol/L Potassium 4.3 (3.5-5.1) mmol/L Chloride 104 (98-107) mmol/L Carbon Dioxide 27 (22-29) mmol/L Anion Gap 14.3 (5-19) BUN 9 (6-20) mg/dL Creatinine 0.7 (0.7-1.2) mg/dL GFR Calculation 131.5 H (90-130) mL/min Glucose 110 (65-115) mg/dL Calculated Osmolal ity 289 (285-295) mOsm/k g Calcium 8.4 L (8.5-10.5) mg/dL Magnesium 1.9 (1.7-2.3) mg/dL Total Bilirubin 0.2 (0.15-1.2) mg/dL AST 17 (0-40) U/L ALT 24 (0-41) U/L Alkaline Phosphata se 56 (40-130) IU/L C-Reactive Protein (0.0-4.9) mg/L Total Protein 6.0 L (6.6-8.7) g/dL Albumin 3.4 L (3.5-5.2) g/dL Globulin 2.6 (1.3-4.6) g/dL Urine Color (Yellow) Urine Appearance (CLEAR) Urine pH (5-7) Ur Specific Gravit y (1.005-1.030) Urine Protein (Negative) Urine Glucose (UA) (Normal) Urine Ketones (Negative) Urine Blood (Negative) Urine Nitrate (Negative) Urine Bilirubin (Negative) Urine Urobilinogen (Negative) mg/dL Ur Leukocyte Deisy ase (Negative) 01/12/20 01/12/20 Range/Units 10:10 10:34 WBC (4.0-10.0) 10^3/ uL RBC (4.1-5.3) 10^6/u L Hgb (11.7-16.6) g/dL Hct (42.0-52.0) % MCV (80-94) fL MCH (28.0-34.0) pg MCHC (30.0-36.0) g/dL RDW (12.1-15.1) % Plt Count (130-400) 10^3/c mm MPV (7.4-10.4) fL Neut % (Auto) % Lymph % (Auto) % Butler % (Auto) % Eos % (Auto) % Baso % (Auto) % Neut # (Auto) (1.8-7.7) 10^3/u L Lymph # (Auto) (0.8-4.8) 10^3/u L Butler # (Auto) (0.2-0.9) 10^3/u L Eos # (Auto) (0.0-0.8) 10^3/u L Baso # (Auto) (0.0-0.1) 10^3/u L Nucleated RBC % (a uto) % Nucleated RBCs # /100WBC ESR (0-10) mm/hr Sodium (136-145) mmol/L Potassium (3.5-5.1) mmol/L Chloride (98-107) mmol/L Carbon Dioxide (22-29) mmol/L Anion Gap (5-19) BUN (6-20) mg/dL Creatinine (0.7-1.2) mg/dL GFR Calculation (90-130) mL/min Glucose (65-115) mg/dL Calculated Osmolal ity (285-295) mOsm/k g Calcium (8.5-10.5) mg/dL Magnesium (1.7-2.3) mg/dL Total Bilirubin (0.15-1.2) mg/dL AST (0-40) U/L ALT (0-41) U/L Alkaline Phosphata se (40-130) IU/L C-Reactive Protein 23.9 H (0.0-4.9) mg/L Total Protein (6.6-8.7) g/dL Albumin (3.5-5.2) g/dL Globulin (1.3-4.6) g/dL Urine Color Yellow (Yellow) Urine Appearance Clear (CLEAR) Urine pH 5 (5-7) Ur Specific Gravit y 1.015 (1.005-1.030) Urine Protein Neg (Negative) Urine Glucose (UA) Norm (Normal) Urine Ketones Negative (Negative) Urine Blood Neg (Negative) Urine Nitrate Negative (Negative) Urine Bilirubin Neg (Negative) Urine Urobilinogen Norm (Negative) mg/dL Ur Leukocyte Deisy ase Negative (Negative) Discharge Plan Discharge Patient Disposition: Admitted As Inpatient Admit Provider: Tracey Pineda Condition: Stable Referrals: Shayan Mistry MD [Physician] - 01/28/20 2:15 pm (You have an appointment on January 27 at 2:15) Esther Palomino MD [Primary Care Provider] - 01/19/20 10:40 am (You have a hospital follow up appointment on January 18 at 10:40) Discharge Diet: Full LIquid Discharge Activity: Increase activity as tolerated Patient Instructions: Abdominal Pain - Adult, [place] Diet - Adult, Ciprofloxacin (By mouth), Metronidazole (By mouth), Ondansetron (By mouth), Low Fat Diet (DC), Weight Management (DC), Obesity (DC), Lymphedema (DC) Additional Instructions: New prescriptions provided including 2 antibiotics due to concern for colitis. Flagyl to take 3 times a day for 9 additional days, ciprofloxacin to take twice a day for 9 additional days. Zofran to use as needed for nausea. Continue with a bland, low-fat, full liquid diet. Avoid any greasy, spicy or fatty foods at this time. Continue to monitor for any worsening of symptoms, for any increase in abdominal pain, inability to tolerate medications or keep down liquids call your physician or present to the ED. For any acute illness or concern call your physician or present to the ED Follow-up with your primary care provider, Dr. Palomino in 4 to 7 days Follow-up with Dr. Mistry in 1 to 2 weeks Strongly encouraged tobacco cessation Discharge Date/Time: 01/12/20 13:08 Coding Level of Care Code ED Maintenance Engineer for Chg Fwd Exam Comprehensive
--- NOTE | 2020-01-12 09:29 | US_ITS ---
WS: [id number] RIGHT UPPER QUADRANT ULTRASOUND HISTORY: RUQ pain. COMPARISON: CT 01/12/2020. Liver: 20.0 cm in length. Moderate enlargement of the liver with hepatic steatosis. No mass. Gallbladder: Normally distended gallbladder with no stones or wall thickening. CBD: 0.4 cm Pancreas: Poorly visualized. Right kidney: 10.3 cm in length. Normal size and echogenicity. No hydronephrosis or mass. Aorta and IVC: Unremarkable abdominal aorta and IVC. There is a small amount of ascites noted within the abdomen. US/US gall bladder [id number] IMPRESSION: 1. Small amount of ascites. 2. Negative gallbladder. 3. Moderate hepatic steatosis and hepatomegaly.
--- NOTE | 2020-01-12 09:30 | XR_ITS ---
WS: [id number] EXAM: AP CHEST: PORTABLE UPRIGHT DATE OF EXAM: 01/12/2020, 0934 hours COMPARISON: Chest x-ray from 09/10/2019 HISTORY: Patient is 29 years old with lower chest and stomach pain. Cough. FINDINGS: The cardiac silhouette is normal in size. The mediastinal contours are normal. The pulmonary vas cularity is normal. The lungs are clear of infiltrate. There is no effusion or pneumothorax. No ac [place] bony abnormality is seen. XR/XR chest 1V portable [id number] IMPRESSION: No acute pulmonary disease.
--- NOTE | 2020-01-12 09:33 | CT_ITS ---
WS: [id number] CT ABDOMEN AND PELVIS WITH CONTRAST HISTORY: Abdominal pain for 3 days. Prior appendectomy. TECHNIQUE: Imaging performed of the abdomen and pelvis with IV contrast. Single phase imaging of the abdomen. Coronal and sagittal reformats are submitted. All CT scans at [facility] use at least one of these dose optimization techniques: automated exposure control; mA and/or kV adjustment per patient size (includes targeted exams where dose is matched to clinical indication); or iterativ e reconstruction. IV CONTRAST: Omnipaque 300; 95 mL IV. Oral contrast: No DLP: 1859.79 mGy.cm COMPARISON: 12/07/2010. Lower thorax: Lung bases are clear. Heart is normal size. Small hiatal hernia. Liver/biliary system: Moderate hepatic steatosis. There is a small amount of fluid around the liver. Gallbladder: Normal. No gallstones or wall thickening. No pericholecystic fluid. Pancreas: Normal. Spleen: Normal size spleen with adjacent perisplenic fluid. Adrenal glands: Normal. Right kidney: Normal. Left kidney: Normal. Aorta: Normal. Lymphadenopathy: None. Free fluid: There is a small amount of fluid around the liver and spleen and along the central small bowel and in the pelvis. GI tract: Abnormal small bowel loops. Beginning within the distal jejunum and the ileum there is exte nsive circumferential mucosal thickening in wall thickening without pneumatosis in the small bowel. T here is edema within the mesentery and adjacent free fluid. There are a few scattered areas of increa sed density within the colon and small bowel which may be medicinal. The terminal ileum is also dilat ed with fluid and normal. There is a small bowel stricture in the central abdomen, best seen on image 57 of series 2. Abdominal wall: Unremarkable abdominal wall. No hernia. Pelvis: Well-distended urinary bladder. No adenopathy in the pelvis. Bones: Unremarkable. CT/CT abdomen pelvis w con* [id number] IMPRESSION: 1. Marked circumferential mucosal edema with wall thickening and hyperemia inv olving the mid to distal small bowel. Small bowel loops are measuring top linda l size. There is also adjacent mesenteric edema and a small amount of ascites. No perforation at this time. Focal area of luminal narrowing suspicious for sma ll bowel stricture in the central abdomen. Correlate for possible acute exacerb ation of Crohn's disease, infection or ischemia. 2. Small amount of ascites. Notified Josué Canas DO at 01/12/2020 10:40 AM.
[2020-01-12] MEDS: ondansetron 2 mg/ML SDV 2 mL 4 MG IVP ×2 (10:05→18:33)
[2020-01-12] MEDS: morphine 4 mg/mL SDV 1 mL IVP (10:05)
[2020-01-12 10:21] LABS: Basophils % 0.4 %; Eosinophils # 0.2 10^3/uL (0.0-0.8); Eosinophils % 1.4 %; Hematocrit 46.8 % (42.0-52.0); Hemoglobin 14.4 g/dL (11.7-16.6); Lymphocytes # 1.4 10^3/uL (0.8-4.8); Lymphocytes % 12.4 %; Mean Corpuscular HGB Conc 30.8 g/dL (30.0-36.0); Mean Corpuscular Hemoglobin 26.6 pg (28.0-34.0); Mean Corpuscular Volume 86.3 fL (80-94); Mean Platelet Volume 9.7 fL (7.4-10.4); Monocytes # 0.6 10^3/uL (0.2-0.9); Monocytes % 5.7 %; Neutrophils # 8.85 10^3/uL (1.8-7.7); Neutrophils % 79.6 %; Nucleated Red Blood Cells % 0 %; Platelet Count 325 10^3/cmm (130-400); Red Blood Count 5.42 10^6/uL (4.1-5.3); Red Cell Distribution Width 13.2 % (12.1-15.1); White Blood Count 11.1 10^3/uL (4.0-10.0)
[2020-01-12] MEDS: iodixanol 320 mg/mL 100mL Btl IV (10:26)
[2020-01-12 10:40] LABS: Add Urine Microscopic? NO
[2020-01-12 10:42] LABS: Alanine Aminotransferase 24 U/L (0-41); Albumin Level 3.4 g/dL (3.5-5.2); Alkaline Phosphatase 56 IU/L (40-130); Aspartate Amino Transferase 17 U/L (0-40); Blood Urea Nitrogen 9 mg/dL (6-20); Calcium 8.4 mg/dL (8.5-10.5); Carbon Dioxide 27 mmol/L (22-29); Chloride 104 mmol/L (98-107); Globulin 2.6 g/dL (1.3-4.6); Glomerular Filtration Rate 131.5 mL/min (90-130); Glucose 110 mg/dL (65-115); Magnesium 1.9 mg/dL (1.7-2.3); Osmolality Calculated 289 mOsm/kg (285-295); Sodium 141 mmol/L (136-145); Total Bilirubin 0.2 mg/dL (0.15-1.2)
[2020-01-12 10:44] LABS: Anion Gap 14.3 (5-19); Potassium 4.3 mmol/L (3.5-5.1)
[2020-01-12 10:49] LABS: Bilirubin Urine Neg (Negative); Blood Urine Neg (Negative); Glucose Urine UA Norm (Normal); Ketones Urine Negative (Negative); Leukocyte Esterase Urine Negative (Negative); Nitrate Urine Negative (Negative); Protein Urine Neg (Negative); Specific Gravity, Urine 1.015 (1.005-1.030); Urine Appearance Clear (CLEAR); Urine Color Yellow (Yellow); Urobilinogen Urine Norm (Negative); pH Urine 5 (5-7)
--- NOTE | 2020-01-12 12:12 | PM.HP ---
Providers/Chief Complaint Primary Care Provider: Esther Palomino MD Chief Complaint: ABD PAIN/D/N/V History of Present Illness Garo Scruggs is a 29 year old male with a past medical history of chronic lymphedema in the lower extremities that presented to the hospital today for abdominal pain. He reported that symptoms started Bam night after eating at a banquet. He stated that he was with 2 other family members, they did not become ill or have any abdominal pain or diarrhea. He reported that he began having pain in the center of his abdomen that radiated across the center of stomach from left to right. He reports he has been having loose stools, diarrhea, initially reporting that it was dark in color, denied any black stools. He reported one episode of bright red blood with wiping Sunday night but has not had any since that time. He denies any recent antibiotic usage, taking [id number] ibuprofen and Tylenol as needed, no daily use of ibuprofen. He reports that the pain comes and goes, no specific alleviating factors, aggravated with movement. Patient denies any fevers or chills, no cough or shortness of breath, no loss of taste or smell. Reports that initially he did not come in for evaluation because he thought it was related to food poisoning, however no one else in the home is been sick. He reported [place], again no household sickness. Patient was seen and evaluated in the emergency department admitted for further evaluation and treatment due to concern for inflammatory bowel disease with intractable nausea vomiting and diarrhea Review of Systems Const: Denies: fever(s) or chills Eyes: Denies: change in vision ENMT: Denies: nasal congestion Card: Reports: edema (chronic, unchanged); Denies: chest pain or palpitations Resp: Denies: dyspnea, productive cough or hemoptysis GI: Reports: abdominal pain, nausea, vomiting and diarrhea; Denies: constipation, hematochezia or melena : Denies: dysuria or hematuria Musc: Denies: extremity pain or muscle cramps Skin/Breast: Denies: rash or new lesions Neuro: Denies: headache(s) or dizziness Psych: Denies: anxiety or depression Endo: Denies: polyuria or hot flashes Ector/Lymph: Denies: easy bruising or easy bleeding Medications/Allergies Home Medications Medication Instructions Recorded Confirmed Last Taken Type No Known Home Medications 01/12/20 01/12/20 Unknown History Allergies Allergy/AdvReac Type Severity Reaction Status Date / Time clindamycin Allergy Unknown Unknown Verified 01/12/20 13:15 Sulfa (Sulfonamide Allergy Unknown Unknown Verified 01/12/20 13:15 Antibiotics) PFSH Acute PFSH: Medical History GERD (gastroesophageal reflux disease) Lymphedema Obesity Surgical History History of appendectomy History of hernia repair Family History Other Diabetes Hypertension Social History Smoking and tobacco status: never smoked Alcohol intake: current Alcohol intake frequency: holidays/special occasions only Substance/Drug Use: never Supplemental PFSH Information: Daily chewing tobacco use Mother and father with Hypertension Diabetes in Mother's side of the family Vitals/I&O/Wt Last Vital Signs Temp 98.3 F 01/12/20 08:41 Pulse 66 01/12/20 11:46 Resp 16 01/12/20 11:46 BP 109/77 01/12/20 11:46 Pulse Ox 99 01/12/20 11:46 Weight last 48 hrs Weight 136.078 kg Physical Exam Const: COMMON NORMALS: patient oriented x3 and alert GENERAL APPEARANCE: cooperative ORIENTATION/CONSCIOUSNESS: Yes awake, Yes oriented to person, Yes oriented to place and Yes oriented to time HENMT: COMMON NORMALS: normocephalic and atraumatic HEAD & SCALP: normocephalic and atraumatic Eye: COMMON NORMALS: Equal, round and reactive pupils present PUPIL: Yes Equal, round and reactive pupils present Neck/C-Spine: COMMON NORMALS: supple GENERAL: Yes normal visual inspection Resp: COMMON NORMALS: normal respiratory effort and clear to auscultation bilaterally EFFORT & INSPECTION: Yes able to speak in complete sentences AUSCULTATION: clear to auscultation bilaterally, no rhonchi and no wheezes Cardio: COMMON NORMALS: regular rate, regular rhythm and No murmurs present (Cardio) RATE: regular rate RHYTHM: regular rhythm GI: COMMON NORMALS: Soft to palpation AUSCULTATION: Yes Hypoactive bowel sounds present PALPATION: Yes Soft to palpation and Yes Tenderness to palpation present (GI) (pain to palpation in the epigastric region, RUQ and LUQ) : COMMON NORMALS: Yes no CVA tenderness BLADDER/KIDNEY EXAM: Yes no CVA tenderness Back/Pelvis: COMMON NORMALS: no CVA tenderness Extremity: COMMON NORMALS: no calf tenderness NARRATIVE EXTREMITY EXAM: Lymphedema in the lower extremities bilaterally Neuro: COMMON NORMALS: patient oriented x3, CN's II-XII intact bilaterally, moves all extremities and no focal motor deficits SENSORIUM/ORIENTATION: Yes alert, Yes oriented to person, Yes oriented to place and Yes oriented to time SPEECH: speech normal Psych: COMMON NORMALS: mental status grossly normal and cooperative Skin: COMMON NORMALS: no rashes or lesions noted GENERAL SKIN EXAM: no rashes or lesions noted Data : 01/12/20 10:10 01/12/20 10:10 CT Abd/Pel: I personally reviewed and interpreted this imaging study as follows: Radiologist's impression: IMPRESSION: 1. Marked circumferential mucosal edema with wall thickening and hyperemia involving the mid to distal small bowel. Small bowel loops are measuring top normal size. There is also adjacent mesenteric edema and a small amount of ascites. No perforation at this time. Focal area of luminal narrowing suspicious for small bowel stricture in the central abdomen. Correlate for possible acute exacerbation of Crohn's disease, infection or ischemia. 2. Small amount of ascites. A&P Assessment and plan (1) Abdominal pain: With CT scan findings as noted above. We will continue to treat as infectious colitis at this time with ciprofloxacin and Flagyl N.p.o., bowel rest Continue with gentle IV fluids Appreciate general surgery consultation, will follow up with recommendations, appreciate assistance in patient's care. Patient reports symptoms started after eating a meal on Sunday evening, however no contacts in the home were sick following the same meal, will obtain stool studies for further evaluation CT scan shows question of marked circumferential mucosal edema with a luminal narrowing suspicious for some mall bowel stricture in the central abdomen. Status: Acute (2) Lymphedema: Chronic lower extremity lymphedema, will need continued close outpatient follow-up, lymphedema wraps ordered Status: Acute Additional A&P Information Morbid obesity Tobacco abuse: strongly encourage cessation DVT prophylaxis: SCDs Diet: N.p.o. CODE STATUS: Full code Attestations Medical Necessity Statement*: Patient requires hospitalization due to intractable nausea vomiting abdominal pain with concern for infectious colitis and stricture in the small bowel. Expected stay greater than 2 midnights Coding Level of Care Code Acute Whiskey Proof Reader for Chg Fwd Exam Comprehensive Diagnoses Abdominal pain R10.9 Lymphedema I89.0
[2020-01-12 12:23] LABS: C Reactive Protein 23.9 mg/L (0.0-4.9)
[2020-01-12 12:28] LABS: Lactic Sepsis W/Reflex 0.9 mmol/L (0.5-2.2)
--- NOTE | 2020-01-12 12:35 | PM.CONSULT ---
Providers/Reason For Consult Consulting Physican/Specialty*: Shayan Mistry MD Reason for Consult*: Abdominal pain Attending Physician: Tracey Pineda DO Primary Care Provider: Esther Palomino MD History of Present Illness History of Present Illness Chief Complaint: I have cramps in my tummy History of present illness: Mr. Garo Scruggs is a 29 year old male presents to the emergency department with history of abdominal cramps associated with nausea and diarrhea nonbloody in nature since last Sunday evening around 11 PM that followed dinner at 7 PM that comprised of grilled ribs in addition to salad before that he felt well but around 11 PM started to have diarrhea and abdominal cramps, he reports no blood and no fevers or chills yet he has been having nausea and vomiting as well and today he comes to the emergency department because of his worsening symptoms. He denies any contact with COVID-19 positive patient and he presents to the emergency department escorted by his for further evaluation and management. Patient laboratory work shows mild elevation of WBC count. ESR and CRP are elevated and lactic acid is normal. Patient is admitted to the hospitalist service and general surgery was consulted for further evaluation and potential management in the light of the CT scan findings below. I did ask the patient a previous history of inflammatory bowel disease he denies any and he did not have any previous endoscopies before. Patient was seen and evaluated in the emergency department room 5. Abdominal pain mostly crampy in nature and in the central part of the abdomen not being referred, nothing seems to make it better or worse CT scan of the abdomen and pelvis: Lower thorax: Lung bases are clear. Heart is normal size. Small hiatal hernia. Liver/biliary system: Moderate hepatic steatosis. There is a small amount of fluid around the liver. Gallbladder: Normal. No gallstones or wall thickening. No pericholecystic fluid. Pancreas: Normal. Spleen: Normal size spleen with adjacent perisplenic fluid. Adrenal glands: Normal. Right kidney: Normal. Left kidney: Normal. Aorta: Normal. Lymphadenopathy: None. Free fluid: There is a small amount of fluid around the liver and spleen and along the central small bowel and in the pelvis. GI tract: Abnormal small bowel loops. Beginning within the distal jejunum and the ileum there is extensive circumferential mucosal thickening in wall thickening without pneumatosis in the small bowel. There is edema within the mesentery and adjacent free fluid. There are a few scattered areas of increased density within the colon and small bowel which may be medicinal. The terminal ileum is also dilated with fluid and normal. There is a small bowel stricture in the central abdomen, best seen on image 57 of series 2. Abdominal wall: Unremarkable abdominal wall. No hernia. Pelvis: Well-distended urinary bladder. No adenopathy in the pelvis. Bones: Unremarkable. CT/CT abdomen pelvis w con* [id number] IMPRESSION: 1. Marked circumferential mucosal edema with wall thickening and hyperemia involving the mid to distal small bowel. Small bowel loops are measuring top normal size. There is also adjacent mesenteric edema and a small amount of ascites. No perforation at this time. Focal area of luminal narrowing suspicious for small bowel stricture in the central abdomen. Correlate for possible acute exacerbation of Crohn's disease, infection or ischemia. 2. Small amount of ascites. Review of Systems General: Reports: 10 or more systems reviewed and unremarkable except in HPI and below Meds/Allergies Home Medications and Allergies Home Medications Medication Instructions Recorded Confirmed Last Taken Type No Known Home Medications 01/12/20 01/12/20 Unknown History Allergies Allergy/AdvReac Type Severity Reaction Status Date / Time clindamycin Allergy Unknown Unknown Verified 01/12/20 13:15 Sulfa (Sulfonamide Allergy Unknown Unknown Verified 01/12/20 13:15 Antibiotics) PFSH Acute PFSH: Medical History GERD (gastroesophageal reflux disease) Lymphedema Obesity Surgical History History of appendectomy History of hernia repair Family History Other Diabetes Hypertension Social History Smoking and tobacco status: never smoked Alcohol intake: current Alcohol intake frequency: holidays/special occasions only Substance/Drug Use: never Vitals/I&O/Wt Last Vital Signs Temp 98.3 F 01/12/20 08:41 Pulse 66 01/12/20 11:46 Resp 16 01/12/20 11:46 BP 109/77 01/12/20 11:46 Pulse Ox 99 01/12/20 11:46 Weight last 48 hrs Weight 300 lb Physical Exam Narrative: EXAM NARRATIVE: Patient is conscious alert oriented X3 BMI 47 Head and neck examination PERRLA no masses no cervical lymphadenopathy no jaundice Cardiac examination audible S1-S2 no murmurs no gallops no arrhythmias Chest is clear bilateral,abscence of Rhonchi or wheezes,no surgical emphysema Abdomen nontender nondistended soft no organomegaly guarding or rigidity/no signs of peritonitis Bilateral lower extremity lymphedema without complication A&P Assessment and plan (1) Abdominal pain: After history taking physical examination and reviewing the chart and images with my personal interpretation likely the patient had food poisoning particularly following the meal that he had last Sunday yet inflammatory bowel disease continue to be a concern in such an age group IV fluid ciprofloxacin and Flagyl IV fluid resuscitation and n.p.o. for now Repeated physical examination Strict I's and O's At some point patient should have an diagnostic EGD and colonoscopy MR E enterography could help to rule out potential IBD if continues to be a concern. Stool studies We will continue to follow Thank you for consulting general surgery to participate taking care Mr. Scruggs Status: Acute Consult Attestations Medical Necessity Statement: Patient will require ongoing hospitalization for IV fluid resuscitation and repeated physical examination Time Spent in Patient Care: (>than 50% of time spent in counselling and/or direct pt care on unit). Coding Level of Care Code Acute Dietary Service Aide for Chg Fwd Diagnoses Abdominal pain R10.9
[2020-01-12 13:09] LABS: Erythrocyte Sedimentation Rate 14 mm/hr (0-10)
[2020-01-12] MEDS: ciprofloxacin 400 MG/200 ML PREMIX 200 MG IV (13:49)
[2020-01-12] MEDS: D5-NS 0.45% + KCL 20 mEq 20 MEQ/1,000 ML BAG 125 MEQ IV ×2 (13:49→22:51)
--- NOTE | 2020-01-12 14:23 | PC.NURSE ---
patient requested nicotine patch. selling underwriter notified Dr Pineda. Dr Pineda said she will put order in.
[2020-01-12] MEDS: metroNIDAZOLE IV 500 MG/100 ML PREMIX 100 MG IV ×2 (15:52→20:33)
[2020-01-12] MEDS: nicotine 21 mg Patch 1 PATCH TRANSDERMA (15:52)
--- NOTE | 2020-01-12 17:14 | PC.NURSE ---
Rcvd verbal order from Dr Mistry for Lovenox 40mg SubQ daily, Ice Chips and Lactic Acid with AM labs. inspector automatic typewriter put orders in as requested.
[2020-01-12] MEDS: enoxaparin 40 mg/0.4 mL Syringe SUBCUT (17:19)
[2020-01-12] MEDS: morphine 4 mg/mL SDV 1 mL 2 MG IVP (18:33)
[2020-01-13] MEDS: ciprofloxacin 400 MG/200 ML PREMIX 200 MG IV (00:28)
[2020-01-13 04:00] VITALS: BP 122/72; PULSE 77; RESP 17; TEMP 36.5; O2SAT 96
[2020-01-13] MEDS: metroNIDAZOLE IV 500 MG/100 ML PREMIX 100 MG IV (04:44)
[2020-01-13 04:56] VITALS: RESP 18
[2020-01-13] MEDS: morphine 4 mg/mL SDV 1 mL 2 MG IVP (04:56)
[2020-01-13] MEDS: ondansetron 2 mg/ML SDV 2 mL 4 MG IVP (04:57)
[2020-01-13 05:27] LABS: Basophils % 0.1 %; Hematocrit 42.6 % (42.0-52.0); Hemoglobin 12.9 g/dL (11.7-16.6); Lymphocytes # 1.1 10^3/uL (0.8-4.8); Lymphocytes % 10.1 %; Mean Corpuscular HGB Conc 30.3 g/dL (30.0-36.0); Mean Corpuscular Hemoglobin 26.5 pg (28.0-34.0); Mean Corpuscular Volume 87.5 fL (80-94); Mean Platelet Volume 9.5 fL (7.4-10.4); Monocytes # 0.4 10^3/uL (0.2-0.9); Monocytes % 3.6 %; Neutrophils % 85.8 %; Nucleated Red Blood Cells % 0 %; Platelet Count 325 10^3/cmm (130-400); Red Blood Count 4.87 10^6/uL (4.1-5.3); White Blood Count 10.5 10^3/uL (4.0-10.0)
--- NOTE | 2020-01-13 05:41 | PC.NURSE ---
SHIFT SUMMARY Had a good night. Had med for pain & nausea just before change of shift and then did not require anything again until this am. Received IV Morphine and Zofran with good relief. Abd pain & tenderness across mid abdomen. No diarrhea this shift. IV fluids infusing without difficulty and receiving IV antibiotics
[2020-01-13 05:52] LABS: Alanine Aminotransferase 20 U/L (0-41); Albumin Level 3.2 g/dL (3.5-5.2); Alkaline Phosphatase 57 IU/L (40-130); Anion Gap 13.4 (5-19); Aspartate Amino Transferase 14 U/L (0-40); Blood Urea Nitrogen 9 mg/dL (6-20); Calcium 8.7 mg/dL (8.5-10.5); Carbon Dioxide 28 mmol/L (22-29); Chloride 104 mmol/L (98-107); Globulin 2.6 g/dL (1.3-4.6); Glomerular Filtration Rate 112.8 mL/min (90-130); Glucose 138 mg/dL (65-115); Lactate (Lactic Acid level) 1.4 mmol/L (0.5-2.2); Osmolality Calculated 290 mOsm/kg (285-295); Potassium 4.4 mmol/L (3.5-5.1); Sodium 141 mmol/L (136-145); Total Bilirubin 0.2 mg/dL (0.15-1.2); Total Protein 5.8 g/dL (6.6-8.7)
--- NOTE | 2020-01-13 06:12 | P.PN_ITS ---
Subjective Subjective: Interval history: Patient overall feels better and leukocytosis is trending down Vitals/I&O/Wt Last Vital Signs Temp 97.7 F 01/13/20 04:00 Pulse 77 01/13/20 04:00 Resp 18 01/13/20 04:56 BP 122/72 01/13/20 04:00 Pulse Ox 96 01/13/20 04:00 01/12/20 01/12/20 01/13/20 14:59 22:59 06:59 Intake Total 1100 / 1100 200 / 1300 Output Total 1400 / 1400 700 / 2100 Balance -300 / -300 -500 / -800 Weight last 48 hrs Weight 341 lb 8 oz Weight 300 lb Physical Exam Narrative: EXAM NARRATIVE: Patient is conscious alert oriented X3 BMI 53.5 Head and neck examination PERRLA no masses no cervical lymphadenopathy no jaundice Abdomen non tender nondistended soft no organomegaly guarding or rigidity/no signs of peritonitis Data : 01/13/20 05:05 01/13/20 05:05 A&P Assessment and plan (1) Abdominal pain: Patient can have clear liquid diet Continue IV antimicrobial therapy Repeated physical examination Strict I's and O's If patient tolerates well p.o. intake can be discharged home and follow-up at surgery office in 1 week likely the patient has gastroenteritis. We will continue to follow Thank you for consulting general surgery to participate taking care Mr. Scruggs Status: Acute Attestations 2 Medical Necessity Statement*: Observation status for clinical progression of patient's abdominal pain Time Spent in Patient Care: (>than 50% of time spent in counselling and/or direct pt care on unit) . Coding Level of Care Code Acute Computational Scientist for Andig [place] Diagnoses Abdominal pain R10.9
[2020-01-13 07:21] VITALS: BP 123/70; PULSE 89; RESP 14; TEMP 36.4; O2SAT 97
--- NOTE | 2020-01-13 08:17 | PC.NURSE ---
rcvd verbal order from Dr Pineda to decrease IV fluids to 30ml/hr. Manager Statistical Programming changed order and decreased IV fluid rate to 30ml/hr.
--- NOTE | 2020-01-13 09:17 | PM.DCS ---
Discharge Providers Date of Admission: 01/12/20 11:45 Date of Discharge: January 13, 2020 Attending Provider at Admission: Tracey Pineda DO Attending Provider at Discharge: Tracey Pineda DO Primary Care Provider: Esther Palomino MD Diagnoses at Discharge Discharge Diagnosis (1) Abdominal pain: Status: Acute Reason for Visit Reason for Visit: ABD PAIN/D/N/V Hospital Course Hospital Course: Patient was seen and evaluated in the emergency department noted to have concern for abdominal pain with intractable nausea vomiting and diarrhea. He had a CT scan of his abdomen and pelvis performed which showed marked circumferential mucosal edema with luminal narrowing suspicious for small bowel stricture in the central abdomen versus infectious colitis. Patient was started on IV fluids, kept nothing to eat or drink for bowel rest and given IV ciprofloxacin and Flagyl. General surgery was consulted and continue to follow along with patient during his hospital stay. He continued to improve and on day 2 of hospitalization he was tolerating a clear liquid diet and increased to a full liquid diet, bland. He had drastic improvement in his abdominal pain and did not have any further abdominal tenderness. Patient reported that he was feeling much better and was asking if he could be discharged to home. Discussed with patient plan for continuing of bland diet and oral antibiotics. He verbalized understanding and agreed with plan. Patient set up with outpatient surgical follow-up following discharge. Physical Exam Const: COMMON NORMALS: patient oriented x3 and alert GENERAL APPEARANCE: cooperative ORIENTATION/CONSCIOUSNESS: Yes awake, Yes oriented to person, Yes oriented to place and Yes oriented to time HENMT: COMMON NORMALS: normocephalic and atraumatic HEAD & SCALP: normocephalic and atraumatic Eye: COMMON NORMALS: Equal, round and reactive pupils present PUPIL: Yes Equal, round and reactive pupils present Neck/C-Spine: COMMON NORMALS: supple GENERAL: Yes normal visual inspection Resp: COMMON NORMALS: normal respiratory effort and clear to auscultation bilaterally EFFORT & INSPECTION: Yes able to speak in complete sentences AUSCULTATION: clear to auscultation bilaterally, no rhonchi and no wheezes Cardio: COMMON NORMALS: regular rate, regular rhythm and No murmurs present (Cardio) RATE: regular rate RHYTHM: regular rhythm GI: COMMON NORMALS: Soft to palpation AUSCULTATION: Yes normoactive bowel sounds PALPATION: Yes Soft to palpation OTHER: Nontender today, no tenderness to palpation in the epigastric region or any other area of the abdomen. Extremity: COMMON NORMALS: no calf tenderness NARRATIVE EXTREMITY EXAM: Lymphedema in the lower extremities bilaterally Neuro: COMMON NORMALS: patient oriented x3, CN's II-XII intact bilaterally, moves all extremities and no focal motor deficits SENSORIUM/ORIENTATION: Yes alert, Yes oriented to person, Yes oriented to place and Yes oriented to time SPEECH: speech normal Psych: COMMON NORMALS: mental status grossly normal and cooperative Skin: COMMON NORMALS: no rashes or lesions noted GENERAL SKIN EXAM: no rashes or lesions noted Discharge Data Data Completed and Pending: Completed Studies During Hospitalization Category Date Time Status CT abdomen pelvis w con* [id number] Stat Cat Scan 01/12/20 09:33 Completed XR chest 1V leo ble [id number] Stat Exams 01/12/20 09:30 Completed US gall bladder 7 [id number] Urgent Ultrasound 01/12/20 09:29 Completed Pending at discharge Category Date Time Status Clostridioides Di fficile PCR Routin e Lab 01/12/20 11:54 Ordered Enteric Bacterial Panel by PCR Rout ine Lab 01/12/20 11:54 Ordered Enteric Parasite Panel by PCR Routi ne Lab 01/12/20 11:54 Ordered Immunochemical Fe albert OCB Routine Lab 01/12/20 11:54 Ordered Lactoferrin Routi ne Lab 01/12/20 11:54 Ordered Labs from last 24 hours 01/13/20 01/13/20 01/13/20 05:05 05:05 05:05 WBC 10.5 H RBC 4.87 Hgb 12.9 Hct 42.6 MCV 87.5 MCH 26.5 L MCHC 30.3 RDW 13.0 Plt Count 325 MPV 9.5 Neut % (Auto) 85.8 Lymph % (Auto) 10.1 [place]berson % (Auto) 3.6 Eos % (Auto) 0.0 Baso % (Auto) 0.1 Neut # (Auto) 9.00 H Lymph # (Auto) 1.1 [place] # (Auto) 0.4 Eos # (Auto) 0.0 Baso # (Auto) 0.0 Nucleated RBC % (a uto) 0 Nucleated RBCs # 0.0 ESR Sodium 141 Potassium 4.4 Chloride 104 Carbon Dioxide 28 Anion Gap 13.4 BUN 9 Creatinine 0.8 GFR Calculation 112.8 Glucose 138 H Calculated Osmolal ity 290 Lactic Acid Lactate 1.4 Calcium 8.7 Magnesium Total Bilirubin 0.2 AST 14 ALT 20 Alkaline Phosphata se 57 C-Reactive Protein Total Protein 5.8 L Albumin 3.2 L Globulin 2.6 Urine Color Urine Appearance Urine pH Ur Specific Gravit y Urine Protein Urine Glucose (UA) Urine Ketones Urine Blood Urine Nitrate Urine Bilirubin Urine Urobilinogen Ur Leukocyte Deisy ase 01/12/20 01/12/20 01/12/20 11:58 10:34 10:10 WBC RBC Hgb Hct MCV MCH MCHC RDW Plt Count MPV Neut % (Auto) Lymph % (Auto) [place]bers[place] % (Auto) Eos % (Auto) Baso % (Auto) Neut # (Auto) Lymph # (Auto) [place] # (Auto) Eos # (Auto) Baso # (Auto) Nucleated RBC % (a uto) Nucleated RBCs # ESR Sodium Potassium Chloride Carbon Dioxide Anion Gap BUN Creatinine GFR Calculation Glucose Calculated Osmolal ity Lactic Acid 0.9 Lactate Calcium Magnesium Total Bilirubin AST ALT Alkaline Phosphata se C-Reactive Protein 23.9 H Total Protein Albumin Globulin Urine Color Yellow Urine Appearance Clear Urine pH 5 Ur Specific Gravit y 1.015 Urine Protein Neg Urine Glucose (UA) Norm Urine Ketones Negative Urine Blood Neg Urine Nitrate Negative Urine Bilirubin Neg Urine Urobilinogen Norm Ur Leukocyte Deisy ase Negative 01/12/20 01/12/20 01/12/20 10:10 10:10 10:10 WBC 11.1 H RBC 5.42 H Hgb 14.4 Hct 46.8 MCV 86.3 MCH 26.6 L MCHC 30.8 RDW 13.2 Plt Count 325 MPV 9.7 Neut % (Auto) 79.6 Lymph % (Auto) 12.4 [place]bers[place] % (Auto) 5.7 Eos % (Auto) 1.4 Baso % (Auto) 0.4 Neut # (Auto) 8.85 H Lymph # (Auto) 1.4 [place]on # (Auto) 0.6 Eos # (Auto) 0.2 Baso # (Auto) 0.0 Nucleated RBC % (a uto) 0 Nucleated RBCs # 0.0 ESR 14 H Sodium 141 Potassium 4.3 Chloride 104 Carbon Dioxide 27 Anion Gap 14.3 BUN 9 Creatinine 0.7 GFR Calculation 131.5 H Glucose 110 Calculated Osmolal ity 289 Lactic Acid Lactate Calcium 8.4 L Magnesium 1.9 Total Bilirubin 0.2 AST 17 ALT 24 Alkaline Phosphata se 56 C-Reactive Protein Total Protein 6.0 L Albumin 3.4 L Globulin 2.6 Urine Color Urine Appearance Urine pH Ur Specific Gravit y Urine Protein Urine Glucose (UA) Urine Ketones Urine Blood Urine Nitrate Urine Bilirubin Urine Urobilinogen Ur Leukocyte Deisy ase Vitals: Last Vital Signs Temp 97.6 F 01/13/20 07:21 Pulse 89 01/13/20 07:21 Resp 14 01/13/20 07:21 BP 123/70 01/13/20 07:21 Pulse Ox 97 01/13/20 07:21 Discharge Plan Discharge Patient Disposition: Home Condition: Stable Prescriptions: New Zofran 4 mg tablet 4 mg PO Q8H PRN (Reason: nausea and vomiting) 4 Days Qty: 20 RF: 0 Flagyl 500 mg tablet 500 mg PO Q8H 9 Days Qty: 27 RF: 0 Cipro 500 mg tablet 500 mg PO BID 9 Days Qty: 18 RF: 0 Discharge Orders: Discharge Order (Routine); Ordered 01/13/20 Ordered By: Tracey Pineda Referrals: Shayan Mistry MD [Physician] - 01/28/20 2:15 pm (You have an appointment on January 27 at 2:15) Esther Palomino MD [Primary Care Provider] - 01/19/20 10:40 am (You have a hospital follow up appointment on January 18 at 10:40) Discharge Diet: Full LIquid Discharge Activity: Increase activity as tolerated Patient Instructions: Abdominal Pain - Adult, Loving Diet - Adult, Ciprofloxacin (By mouth), Metronidazole (By mouth), Ondansetron (By mouth), Low Fat Diet (DC), Weight Management (DC), Obesity (DC), Lymphedema (DC) Activity Restrictions/Additional Instructions: New prescriptions provided including 2 antibiotics due to concern for colitis. Flagyl to take 3 times a day for 9 additional days, ciprofloxacin to take twice a day for 9 additional days. Zofran to use as needed for nausea. Continue with a bland, low-fat, full liquid diet. Avoid any greasy, spicy or fatty foods at this time. Continue to monitor for any worsening of symptoms, for any increase in abdominal pain, inability to tolerate medications or keep down liquids call your physician or present to the ED. For any acute illness or concern call your physician or present to the ED Follow-up with your primary care provider, Dr. Palomino in 4 to 7 days Follow-up with Dr. Mistry in 1 to 2 weeks Strongly encouraged tobacco cessation Discharge Date/Time: 01/13/20 13:25 Discharge Attestations Time Spent in Discharge Care*: greater than 30 min Specific Discharge Activities: Specific discharge activities: educating patient, discussing with pcp/other providers and documenting/other paperwork Quality Metrics Clinical Quality Measures During this hospital stay, did patient experience: None Coding Level of Care Code Acute Preschool Paraprofessional for Chg Fwd Exam Comprehensive Diagnoses Abdominal pain R10.9
[2020-01-13] MEDS: nicotine 21 mg Patch 1 PATCH TRANSDERMA (10:07)
[2020-01-13 11:14] VITALS: BP 124/76; PULSE 84; RESP 18; TEMP 36.3; O2SAT 95
[2020-01-13 13:23] VITALS: BP 124/76; PULSE 84; RESP 18; TEMP 36.3; O2SAT 95
--- NOTE | 2020-01-13 13:23 | PC.NURSE ---
patient taken to private vehicle via wheelchair by pattern chart writer.
== END 2020-01-13 13:25 | disposition home or self-care (01) | DRG 392 ==
LOC: ER 08:49 → MEDSURG 12:33
PROVIDERS: Family Medicine; Surgery; Admitting Provider Family Medicine; PCP Family Medicine; Visit Provider Family Medicine
DX: R10.9 Unspecified abdominal pain (principal); Z68.43 Body mass index [BMI] 50.0-59.9, adult; K21.9 Gastro-esophageal reflux disease without esophagitis; I89.0 Lymphedema, not elsewhere classified; E66.01 Morbid (severe) obesity due to excess calories; F17.220 Nicotine dependence, chewing tobacco, uncomplicated
CPT/HCPCS: 12345; 36415; 71045; 74177; 76705; 80053; 81003; 83605; 83735; 85025; 85651; 86140; 96372; 96375; 99283; J0744; J1650; J2270; J2405; J2930; Q9967; S0030

== ENCOUNTER 2020-01-30 06:45 | Inpatient (IN) | payer SELFPAY ==
[2020-01-30] VITALS (13 sets, daily range): BP systolic 115–151; BP diastolic 67–102; PULSE 72–98; RESP 16–18; TEMP 36.3–37.1; O2SAT 96–99; BMI 50.1
--- NOTE | 2020-01-30 07:06 | XR_ITS ---
WS: [id number] Left knee, 3 views, 01/30/2020 Clinical Data: pain, redness Comparison: None. Findings: No fractures or dislocations are seen. The joint spaces are normal. The patella is intact. The soft t issues are unremarkable. There is a small osteophyte of the medial tibial plateau XR/XR knee LT 3V* [id number] Impression: Minimal osteoarthritis.
--- NOTE | 2020-01-30 07:09 | USCV_ITS ---
Garo Scruggs Age: 29 Gender: M : 1990 Exam Date: 01/30/2020 07:34 Ordering Phys: Nichole Bernal MD Technologist: Lakesha Monroy Exam Location: [facility] [place] Indication: LEFT LEG PAIN HISTORY: Lower extremity pain. PROCEDURES: The venous duplex Doppler examination of both lower extremities was performed in the standard fashion. The following venous structures were evaluated: common femoral vein, profunda vein, proximal portion of the greater saphenous vein, superficial femoral vein, and the popliteal vein. In addition, the posterior tibial and peroneal trunk were evaluated. FINDINGS: Normal 2-D Doppler and augmentation and compressibility throughout the lower extremity venous structures. Additional imaging through the proximal calf veins also reveals no thrombus. Limited evaluation of the greater saphenous vein is patent with no thrombus. CONCLUSIONS No evidence of right lower extremity DVT. No evidence of left lower extremity DVT. Cuco Young MD (Electronically Signed) Final Date: 30 January 2020 14:45 S
--- NOTE | 2020-01-30 07:10 | W.ED.EXTPRO ---
HPI - Extremity Problem General: Chief complaint: Extremity Problem,Nontraumatic Stated complaint: left leg pain Time Seen by Provider: 01/30/20 06:57 History of Present Illness: HPI Narrative: This patient is a 29-year-old male presenting today with left leg pain. He has history of lymphedema which is particularly bad in the left leg. He is had this for quite some time. Today he said he is having pain in the leg like he has never had before. He also has some lymphedema in the right leg and has had recurrent cellulitis in that leg most recently. He has had cellulitis in the left leg but not for several years. Today he is having a lot of pain around the knee joint which is somewhat unusual as well. He had a fever of 100 degrees a couple of days ago but yesterday and today have had a normal temperature. He had some upper respiratory type symptoms about 4 days ago which she describes as dryness in his nose. He has not had a cough or shortness of breath. He denies vomiting or diarrhea. He said he did have some charley horses around his chest a few days ago but currently no chest pain or shortness of breath. He tells me that he has been taking some leftover antibiotics that he had at home. We discussed that he should be completing any course of antibiotics that he is given. He says he just stopped taking them when he starts feeling better. We discussed antibiotic resistance and the fact that this may be why he gets recurrent infections. He also had some hydrocodone at home that he took. His last dose was last night at 6 PM. MD Complaint: extremity pain, extremity swelling, joint swelling and joint pain Onset (ago): day(s) (4) Pain Consistency: constant Location: left, lower extremity and knee Quality: other (Patient says it feels like someone has taken his kneecap and is pulling all the veins out of his lower leg with it) Radiation: none Relieving factors: nothing Associated symptoms: Reports chest pain and fever(s); Deny rash Review of Systems General: Reports: 10 or more systems reviewed and unremarkable except in HPI and below Const: Reports: fever(s) Eyes: Denies: change in vision ENMT: Denies: odynophagia Card: Reports: chest pain Resp: Denies: dyspnea, productive cough or non-productive cough GI: Denies: abdominal pain, nausea or vomiting : Denies: flank pain Musc: Reports: extremity pain, extremity swelling, joint pain and joint redness; Denies: neck pain or back pain Skin/Breast: Denies: rash Neuro: Denies: headache(s), numbness in extremities or weakness in extremities Ector/Lymph: Denies: easy bruising or easy bleeding PFS ED PFSH: Medical History (Updated 01/30/20 @ 12:42 by Nichole Bernal MD) GERD (gastroesophageal reflux disease) Lymphedema Obesity Surgical History History of appendectomy History of hernia repair Family History Other Diabetes Hypertension Social History (Updated 01/30/20 @ 09:24 by Tracey Pineda DO) Smoking and tobacco status: never smoked Alcohol intake: current Alcohol intake frequency: holidays/special occasions only Substance/Drug Use: never Physical Exam Const: COMMON NORMALS: patient oriented x3, no limitations and alert GENERAL APPEARANCE: cooperative HENMT: HEAD & SCALP: normal to inspection FACE & SINUS: normal facial exam Eye: GENERAL EYE: appearance normal, both eyes and all related structures Neck/C-Spine: COMMON NORMALS: supple, no meningeal signs and no JVD Chest: COMMONS NORMALS: normal inspection of the chest Resp: COMMON NORMALS: normal respiratory effort, No use of accessory muscles and clear to auscultation bilaterally AUSCULTATION: clear to auscultation bilaterally Cardio: COMMON NORMALS: no JVD, regular rate, regular rhythm and No murmurs present (Cardio) RATE: regular rate RHYTHM: regular rhythm GI: COMMON NORMALS: Normal to inspection, nondistended, normoactive bowel sounds present, Soft to palpation and non-tender INSPECTION: Yes normal to inspection AUSCULTATION: Yes normoactive bowel sounds PALPATION: Yes Soft to palpation Back/Pelvis: COMMON NORMALS: thoracic and lumbar spine normal to inspection Extremity: NARRATIVE EXTREMITY EXAM: The left lower leg has massive lymphedema from the knee down. The knee itself is warm and red. He has pain with any palpation or movement of the leg. I do not see any open wounds. The right leg has some mild lymphedema and multiple small excoriations, possibly bug bites. There is no heat or redness in the right leg. Neuro: COMMON NORMALS: patient oriented x3, moves all extremities, no focal motor deficits and no sensory deficits noted SENSORIUM/ORIENTATION: Yes alert MENINGEAL SIGNS: Yes no meningeal signs Psych: COMMON NORMALS: mental status grossly normal, cooperative and normal affect Skin: COMMON NORMALS: no rashes or lesions noted and turgor normal GENERAL SKIN EXAM: no rashes or lesions noted and turgor normal Course ED course: Patient had some improvement in his pain with 1 dose of morphine. I ordered a repeat dose. Also ordered vancomycin and Zosyn based on prior treatment regimens. He is basically failed outpatient treatment at home with the antibiotics that he has been taking at home. Although I am not sure exactly which antibiotics he has been taking, having looked through his recent discharge summaries the ones that he has been sent home with would be appropriate for cellulitis. Venous ultrasound was negative for clot. X-ray of the left knee did not show any big joint effusion. I discussed the option with him of going home versus coming in and he said that he thinks he needs to come in for some IV antibiotics. Given the severe pain and marked lymphedema in the leg I think he is unlikely to do well at home with oral antibiotics. Vital Signs: Vital signs: Vital Signs Temperature 98.6 F 01/30/20 11:38 Pulse Rate 72 01/30/20 11:38 Respiratory Rate 18 01/30/20 11:38 Blood Pressure 126/74 01/30/20 11:38 Pulse Oximetry 98 01/30/20 11:38 MDM - Extremity (Nontraumatic) Lab Data: Labs: Lab Results 01/30/20 01/30/20 Range/Units 07:25 07:25 WBC 12.1 H (4.0-10.0) 10^3/ uL RBC 5.22 (4.1-5.3) 10^6/u L Hgb 13.8 (11.7-16.6) g/dL Hct 45.3 (42.0-52.0) % MCV 86.8 (80-94) fL MCH 26.4 L (28.0-34.0) pg MCHC 30.5 (30.0-36.0) g/dL RDW 12.7 (12.1-15.1) % Plt Count 325 (130-400) 10^3/c mm MPV 9.5 (7.4-10.4) fL Neut % (Auto) 80.7 % Lymph % (Auto) 9.2 % [place] % (Auto) 7.9 % Eos % (Auto) 1.4 % Baso % (Auto) 0.2 % Neut # (Auto) 9.75 H (1.8-7.7) 10^3/u L Lymph # (Auto) 1.1 (0.8-4.8) 10^3/u L [place] # (Auto) 1.0 H (0.2-0.9) 10^3/u L Eos # (Auto) 0.2 (0.0-0.8) 10^3/u L Baso # (Auto) 0.0 (0.0-0.1) 10^3/u L Nucleated RBC % (a uto) 0 % Nucleated RBCs # 0.0 /100WBC Sodium 138 (136-145) mmol/L Potassium 3.9 (3.5-5.1) mmol/L Chloride 102 (98-107) mmol/L Carbon Dioxide 27 (22-29) mmol/L Anion Gap 12.9 (5-19) BUN 16 (6-20) mg/dL Creatinine 0.8 (0.7-1.2) mg/dL GFR Calculation 112.8 (90-130) mL/min Glucose 123 H (65-115) mg/dL Calculated Osmolal ity 289 (285-295) mOsm/k g Calcium 8.5 (8.5-10.5) mg/dL Total Bilirubin 0.2 (0.15-1.2) mg/dL AST 23 (0-40) U/L ALT 38 (0-41) U/L Alkaline Phosphata se 66 (40-130) IU/L C-Reactive Protein 73.0 H (0.0-4.9) mg/L Total Protein 6.4 L (6.6-8.7) g/dL Albumin 3.4 L (3.5-5.2) g/dL Globulin 3.0 (1.3-4.6) g/dL Discharge Plan Discharge Patient Disposition: Admitted As Inpatient Admit Provider: Tracey Pineda Clinical Impression: Lymphedema Cellulitis Qualifiers: Site of cellulitis: extremity Site of cellulitis of extremity: lower extremity Laterality: left Qualified Code(s): L03.116 - Cellulitis of left lower limb Condition: Stable Discharge Date/Time: 01/30/20 10:40 Coding Level of Care Code ED Ambulance Attendant for Tim Fwd Exam Comprehensive
[2020-01-30] MEDS: ondansetron 2 mg/ML SDV 2 mL 4 MG IVP (07:27)
[2020-01-30] MEDS: morphine 4 mg/mL SDV 1 mL IVP ×2 (07:31→08:26)
[2020-01-30 07:33] LABS: Basophils % 0.2 %; Eosinophils # 0.2 10^3/uL (0.0-0.8); Eosinophils % 1.4 %; Hematocrit 45.3 % (42.0-52.0); Hemoglobin 13.8 g/dL (11.7-16.6); Lymphocytes # 1.1 10^3/uL (0.8-4.8); Lymphocytes % 9.2 %; Mean Corpuscular HGB Conc 30.5 g/dL (30.0-36.0); Mean Corpuscular Hemoglobin 26.4 pg (28.0-34.0); Mean Corpuscular Volume 86.8 fL (80-94); Mean Platelet Volume 9.5 fL (7.4-10.4); Monocytes % 7.9 %; Neutrophils # 9.75 10^3/uL (1.8-7.7); Neutrophils % 80.7 %; Nucleated Red Blood Cells % 0 %; Platelet Count 325 10^3/cmm (130-400); Red Blood Count 5.22 10^6/uL (4.1-5.3); Red Cell Distribution Width 12.7 % (12.1-15.1); White Blood Count 12.1 10^3/uL (4.0-10.0)
[2020-01-30 07:49] LABS: Alanine Aminotransferase 38 U/L (0-41); Albumin Level 3.4 g/dL (3.5-5.2); Alkaline Phosphatase 66 IU/L (40-130); Anion Gap 12.9 (5-19); Aspartate Amino Transferase 23 U/L (0-40); Blood Urea Nitrogen 16 mg/dL (6-20); Calcium 8.5 mg/dL (8.5-10.5); Carbon Dioxide 27 mmol/L (22-29); Chloride 102 mmol/L (98-107); Glomerular Filtration Rate 112.8 mL/min (90-130); Glucose 123 mg/dL (65-115); Osmolality Calculated 289 mOsm/kg (285-295); Potassium 3.9 mmol/L (3.5-5.1); Sodium 138 mmol/L (136-145); Total Bilirubin 0.2 mg/dL (0.15-1.2); Total Protein 6.4 g/dL (6.6-8.7)
[2020-01-30] MEDS: piperacillin-tazobactam 3.375 GM in sodium chloride 0.9% (plus) 50 ML IV ×2 (08:13→21:26)
--- NOTE | 2020-01-30 09:21 | PM.HP ---
Providers/Chief Complaint Primary Care Provider: Esther Palomino MD Chief Complaint: left leg pain History of Present Illness Garo Scruggs is a 29 year old male with a past medical history of lymphedema that presented to the emergency department today for worsening left lower extremity swelling and redness. He stated that it all started approximately 2 days ago with increased pain, stated he had a sharp pain in his left knee and around his left ankle then developed fever at home of 101 degrees. He denies any sick contacts, no exposure to anyone under investigation are positive for COVID-19, noted that early in the week he had some nasal congestion but no other respiratory symptoms. Reported generalized malaise that accompanied his fever. He reports chronic lymphedema but has been noncompliant with his lymphedema wraps and has not been wearing any compression stockings. He denies any recent trauma to the left leg, no abrasions or skin breakdown that he is aware of. Patient denies any other rashes or skin changes. Reported feeling of warmth in the left lower extremity with increasing redness over the past 2 days accompanied by fever. Reports a history of cellulitis. Patient was recently hospitalized for gastroenteritis given antibiotics including Cipro and Flagyl, he reported that he did not take the medications a couple of days following discharge because he was feeling much better, long discussion with patient about the appropriate use of antibiotics and compliance. Review of Systems Const: Reports: fever(s), fatigue and malaise; Denies: chills ENMT: Denies: nasal congestion Card: Reports: edema (Chronic lymphedema, left greater than right) and swelling of feet/ankles; Denies: chest pain or palpitations Resp: Denies: dyspnea, productive cough or hemoptysis GI: Denies: abdominal pain, nausea, vomiting, diarrhea, constipation, hematochezia or melena : Denies: dysuria or hematuria Musc: Reports: extremity pain (Left lower extremity pain); Denies: muscle cramps Skin/Breast: Reports: erythema (Increased redness in the left lower extremity); Denies: rash or new lesions Neuro: Denies: headache(s) or dizziness Psych: Denies: anxiety or depression Endo: Denies: polyuria or hot flashes Ector/Lymph: Denies: easy bruising or easy bleeding Medications/Allergies Home Medications Medication Instructions Recorded Confirmed Last Taken Type ciprofloxacin HCl 500 mg PO BID 01/30/20 01/30/20 01/29/20 History ibuprofen 600 mg PO PRN 01/30/20 01/30/20 01/27/20 History metronidazole 500 mg PO Q8H 01/30/20 01/30/20 01/29/20 History ondansetron HCl 4 mg PO Q8H PRN 01/30/20 01/30/20 Unknown History Allergies Allergy/AdvReac Type Severity Reaction Status Date / Time clindamycin Allergy Unknown Unknown Verified 01/30/20 08:45 Sulfa (Sulfonamide Allergy Unknown Unknown Verified 01/30/20 08:45 Antibiotics) PFSH Acute PFSH: Medical History (Updated 01/30/20 @ 09:30 by Tracey Pineda DO) GERD (gastroesophageal reflux disease) Lymphedema Obesity Surgical History History of appendectomy History of hernia repair Family History Other Diabetes Hypertension Social History (Updated 01/30/20 @ 09:24 by Tracey Pineda DO) Smoking and tobacco status: never smoked Alcohol intake: current Alcohol intake frequency: holidays/special occasions only Substance/Drug Use: never Vitals/I&O/Wt Last Vital Signs Temp 97.3 F L 01/30/20 06:49 Pulse 89 01/30/20 08:13 Resp 16 01/30/20 08:26 BP 151/71 01/30/20 08:13 Pulse Ox 96 01/30/20 08:26 01/29/20 01/30/20 01/30/20 22:59 06:59 14:59 Intake Total 50 / 50 Balance 50 / 50 Weight last 48 hrs Weight 145.15 kg Physical Exam Const: COMMON NORMALS: patient oriented x3 and alert GENERAL APPEARANCE: cooperative ORIENTATION/CONSCIOUSNESS: Yes awake, Yes oriented to person, Yes oriented to place and Yes oriented to time HENMT: COMMON NORMALS: normocephalic and atraumatic HEAD & SCALP: normocephalic and atraumatic Eye: COMMON NORMALS: Equal, round and reactive pupils present PUPIL: Yes Equal, round and reactive pupils present Neck/C-Spine: COMMON NORMALS: supple GENERAL: Yes normal visual inspection Resp: COMMON NORMALS: normal respiratory effort and clear to auscultation bilaterally EFFORT & INSPECTION: Yes able to speak in complete sentences AUSCULTATION: clear to auscultation bilaterally, no rhonchi and no wheezes Cardio: COMMON NORMALS: regular rate, regular rhythm and No murmurs present (Cardio) RATE: regular rate RHYTHM: regular rhythm GI: COMMON NORMALS: Soft to palpation and non-tender INSPECTION: No abdominal distension AUSCULTATION: Yes normoactive bowel sounds PALPATION: Yes Soft to palpation OTHER: Obese, soft, nontender, nondistended, normal bowel sounds Extremity: COMMON NORMALS: no calf tenderness OTHER: Significant lymphedema in the left lower extremity with coarse texture to the skin. Patient has left lower extremity erythema, moisture in the skin folds on the ankle with erythema in the skin fold Neuro: COMMON NORMALS: patient oriented x3, CN's II-XII intact bilaterally, moves all extremities and no focal motor deficits SENSORIUM/ORIENTATION: Yes alert, Yes oriented to person, Yes oriented to place and Yes oriented to time SPEECH: speech normal Psych: COMMON NORMALS: mental status grossly normal and cooperative Skin: NARRATIVE SKIN EXAM: lymphedema as above, erythema in the L LE Data : 01/30/20 07:25 01/30/20 07:25 Xray Ortho: I personally reviewed and interpreted this imaging study as follows: Radiologist's impression: XR/XR knee LT 3V* [id number] Impression: Minimal osteoarthritis. A&P Assessment and plan (1) Cellulitis: Left lower extremity cellulitis with severe left lower extremity lymphedema PT ordered for consult for lymphedema wraps L LE venous duplex performed in the ED, reported negative for DVT. We will follow-up with official report Continue on IV antibiotics, vancomycin and Zosyn Tylenol as needed for fever Status: Acute Additional A&P Information Lymphedema: PT consult for wraps, this will need to continue outpatient Recent gastroenteritis: Continue with probiotic Morbid obesity DVT ppx: Lovenox Diet: low sodium Code status: Full code Attestations Medical Necessity Statement*: Hospitalization due to left lower extremity cellulitis with severe lymphedema, expected stay greater than 2 midnights Coding Level of Care Code Acute Inker Machine for Chg Fwd Exam Comprehensive Diagnoses Cellulitis L03.90
[2020-01-30] MEDS: enoxaparin 40 mg/0.4 mL Syringe SUBCUT (11:07)
[2020-01-30] MEDS: HYDROcodone-acetaminophen 5-325 mg Tablet 1 TAB PO (12:01)
[2020-01-30] MEDS: lactobacillus 1 Tablet 1 TAB PO ×3 (14:02→21:26)
[2020-01-30] MEDS: morphine 4 mg/mL SDV 1 mL 2 MG IVP ×2 (17:25→21:36)
--- NOTE | 2020-01-30 18:43 | PC.NURSE ---
Pt had a pain of 8/10 this nurse gave hydrocdone 5-325 for pain which pt stated helped. Lymph wraps were placed after medicated with pain medication, pt stated the pressure and the pain medication helped tremendously, within 4 hours the pt was in excruciating pain rating about a 10/10 and asked for something stronger. this nurse called Dr Pineda who ordered for pt to receive morphine 2mg Q4H PRN and change hydrocodone to 7-325 Q4H PRN. once pt reveived morphine 2mg he stated that the pain had then become tolerable. Pt has had no other complaints at this time.
[2020-01-30] MEDS: HYDROcodone-acetaminophen 7.5-325 mg Tablet 1 TAB PO (23:20)
[2020-01-30] MEDS: nicotine 21 mg Patch 1 PATCH TRANSDERMA (23:21)
[2020-01-31] VITALS (7 sets, daily range): BP systolic 111–149; BP diastolic 68–92; PULSE 85–104; RESP 18–20; TEMP 36.6–37.6; O2SAT 96–98
[2020-01-31] MEDS: piperacillin-tazobactam 3.375 GM in sodium chloride 0.9% (plus) 50 ML IV (03:48)
[2020-01-31] MEDS: morphine 4 mg/mL SDV 1 mL 2 MG IVP ×2 (05:13→22:37)
[2020-01-31 05:42] LABS: Blood Urea Nitrogen 17 mg/dL (6-20); Calcium 8.6 mg/dL (8.5-10.5); Carbon Dioxide 27 mmol/L (22-29); Chloride 104 mmol/L (98-107); Glomerular Filtration Rate 70.6 mL/min (90-130); Glucose 108 mg/dL (65-115); Osmolality Calculated 288 mOsm/kg (285-295); Sodium 138 mmol/L (136-145)
[2020-01-31 06:33] LABS: Anion Gap 13.3 (5-19); Potassium 4.3 mmol/L (3.5-5.1)
[2020-01-31 06:44] LABS: Basophils # 0.1 10^3/uL (0.0-0.1); Basophils % 0.5 %; Eosinophils # 0.3 10^3/uL (0.0-0.8); Eosinophils % 1.9 %; Hematocrit 41.8 % (42.0-52.0); Hemoglobin 12.9 g/dL (11.7-16.6); Lymphocytes # 1.6 10^3/uL (0.8-4.8); Lymphocytes % 11.7 %; Mean Corpuscular HGB Conc 30.9 g/dL (30.0-36.0); Mean Corpuscular Hemoglobin 26.8 pg (28.0-34.0); Mean Corpuscular Volume 86.7 fL (80-94); Mean Platelet Volume 10.2 fL (7.4-10.4); Monocytes # 1.4 10^3/uL (0.2-0.9); Monocytes % 10.4 %; Neutrophils # 10.23 10^3/uL (1.8-7.7); Neutrophils % 75.1 %; Nucleated Red Blood Cells % 0 %; Platelet Count 287 10^3/cmm (130-400); Red Blood Count 4.82 10^6/uL (4.1-5.3); Red Cell Distribution Width 12.9 % (12.1-15.1); White Blood Count 13.6 10^3/uL (4.0-10.0)
[2020-01-31] MEDS: lactobacillus 1 Tablet 1 TAB PO ×4 (07:48→21:36)
[2020-01-31] MEDS: nicotine 21 mg Patch 1 PATCH TRANSDERMA (07:48)
[2020-01-31] MEDS: HYDROcodone-acetaminophen 7.5-325 mg Tablet 1 TAB PO ×3 (10:55→21:36)
[2020-01-31] MEDS: enoxaparin 40 mg/0.4 mL Syringe SUBCUT (10:56)
--- NOTE | 2020-01-31 11:33 | CTR_ITS ---
PROCEDURE INFORMATION: Exam: CT Left Lower Extremity Without Contrast, Knee Exam date and time: 01/31/2020 2:36 PM Age: 29 years old Clinical indication: Left; Patient HX: C/O L knee pain and swelling - only possible injury he can think of was jumping off a trailer last week; Additional info: Left knee pain TECHNIQUE: Imaging protocol: CT of the Left lower extremity without contrast was performed. Exam focused on the knee. Radiation optimization: All CT scans at this facility use at least one of these dose optimization techniques: automated exposure control; mA and/or kV adjustment per patient size (includes targeted exams where dose is matched to clinical indication); or iterative reconstruction. COMPARISON: CR XR knee LT 3V* [id number] 01/30/2020 7:05 AM RADIATION DOSE METRICS: Total DLP (mGy-cm): 1095.21 FINDINGS: Bones/joints: There is subtle contour abnormality at the anterior aspect of the lateral tibial plateau raising concern for nondisplaced fracture. There are tricompartmental primary osteoarthritic changes in the including subchondral cystic change and marginal osteophyte formations. Soft tissues: Edema is present in the soft tissues surrounding the knee. CT/CT knee LT wo con* [id number] IMPRESSION: 1. There is subtle contour abnormality at the anterior aspect of the lateral tibial plateau raising concern for nondisplaced fracture. Consider MRI of the knee for further evaluation if clinically warranted. 2. There are tricompartmental primary osteoarthritic changes in the knee as described above. Radiation Dose CTDIVOL = (mGy): DLP = 1095.21 (mGy-cm)
--- NOTE | 2020-01-31 11:35 | PC.CHAP ---
Pastoral Care Encounter/Spiritual Assessment Type of Contact [] Declined enrollment management coordinator visit [] Patient/Family/Request visit [] Outpatient visit [] Follow-up visit [] Physician referral [] Code/Alert [X] Routine visit [] Staff referral [] Actively dying [] Patient sleeping [] Family support [] [] Out of room [] Palliative care [] [] Receiving care in room [] Pre-surgical visit [] Trauma [] Long length of stay [] ICU visit [] Other: Relational/Emotional Strength [] Patient feels connected with others/family/visitors/staff [] Distress [] Loneliness/isolation [] Abandonment Spirituality of Patient [] Person of [place] [] Attends Yarsani of their [place] [] Believes in Prayer [] Reads Bible or Presybeterian materials [] There are Spiritual issues to be addressed Green [employer] Marker Interventions [] Prayer [] Active listening [] Non-anxious presence [] Spiritual/emotional support [] Crisis/trauma care [] Spiritual counseling [] Bereavement support [] Provided bereavement packet [] Provided Bible/devotional materials [] Provided toy/stuffed animal, coloring book to patient or family member [] Provided Communion [] Anointing/Bunch [] Salvation [] Completed spiritual assessment [] Other: Impact on Illness or Injury [] Angry [] Fearful [] Anxious [] Often cries [] Exhaustion [] Unable to work [] Unable to attend anglican [] Unable to walk/stand [] Unable to read [] Unable to drive [] Unable to eat/drink [] Unable to sleep [] Unable to be with family [] Patient intubated [] Other: Summary Time spent with patient
[2020-01-31 12:38] LABS: Creatine Phosphokinase 45 U/L (39-308); Uric Acid 5.4 mg/dL (3.4-7.0)
[2020-01-31 13:43] LABS: SARS Covid-2 Antigen Negative (Negative)
--- NOTE | 2020-01-31 15:01 | PC.NURSE ---
patient taken to CT by ODIN Pereira, no distress noted.
--- NOTE | 2020-01-31 17:04 | P.PN_ITS ---
Subjective Subjective: Interval history: no acute overnight events, denies any c/o redness warmth or increasing swelling. Lymphedema therapist at bedside today who has been caring for him in the past. Per patient and report, his swelling appears to be at his usual baseline. He states he suffered an injury moving heavy objects one week ago, on sunday had a low grade temp of 100.1, has not subsequently checked. This was preceeded by sinusitis like symptoms. T max here is 99.7F. No signs of cellulitis at this present time. Medications: Reviewed: Yes Vitals/I&O/Wt Last Vital Signs Temp 98.2 F 01/31/20 15:22 Pulse 87 01/31/20 15:22 Resp 18 01/31/20 15:22 BP 135/83 01/31/20 15:22 Pulse Ox 97 01/31/20 15:22 01/31/20 01/31/20 01/31/20 06:59 14:59 22:59 Intake Total 1250 / 2160 480 / 480 Output Total 1000 / 2430 500 / 500 Balance 250 / -270 -20 / -20 Weight last 48 hrs Weight 149.941 kg Weight 145.15 kg Physical Exam Narrative: EXAM NARRATIVE: GEN: Awake, alert and oriented, no acute distress CVS: S1S2 N RS: CTA B/L Abd: Soft, nt/nd , bs+ SERVICE ENGINEER: no focal neuro deficits EXT: B/L LE with gross lymphedema, congenital per patient. No overlying signs of cellulitis on exam today, Points to medial left knee and calf as site of pain Data : 01/31/20 04:54 01/31/20 04:54 A&P Assessment and plan (1) Lymphedema: Status: Acute (2) Obesity: Status: Acute Qualifiers: Obesity type: unspecified obesity type Obesity classification: adult class 3 (BMI >= 40) Serious obesity comorbidity presence: unspecified whether serious comorbidity present Body mass index: BMI 50.0-59.9 Qualified Code(s): E66.01 - Morbid (severe) obesity due to excess calories; Z68.43 - Body mass index (BMI) 50.0-59.9, adult (3) Left knee pain: Status: Acute Qualifiers: Chronicity: acute Qualified Code(s): M25.562 - Pain in left knee Additional A&P Information Patient admitted yesetrday with c/o fever, left leg pain and swelling with concern for cellulitis. On exam today, no gross cellulitic changes seen. No erythema, warmth and tenderness noted. Lymphedema therapist at bedside today who is familiar with patient. Together w ith patient, stated that limb appears unchanged from previously. Stop antibiotics and monitor closely. Will resume if any signs re appear Mechanical injury cannot be ruled out given h/o lifting heavy objects recently with twisting injury to knee mid week. Check CT of the knee to evaluate for underlying fracture or meniscal injuries. Given fever and acute joint pain, differentials would include gout , check uric acid levels Elevated CRP could also point to OA flare, which is seen in x ray knee Check Covid antigen given fever- URI symptoms and myalgia concerning for same Further plan based on results of testing today Attestations Medical Necessity Statement*: evaluation of acute left knee pain with fever Coding Level of Care Code Acute Power Line Installer And Repairer for [facility] Fwd Diagnoses Lymphedema I89.0 Obesity E66.01; Z68.43 Obesity type: unspecified obesity type Obesity classification: adult class 3 (BMI >= 40) Serious obesity comorbidity presence: unspecified whether serious comorbidity present Body mass index: BMI 50.0-59.9 Left knee pain M25.562 Chronicity: acute
[2020-02-01] VITALS: BP 137/83; PULSE 97; RESP 18; TEMP 36.6; O2SAT 98
[2020-02-01 04:00] VITALS: BP 134/80; PULSE 85; RESP 18; TEMP 37.2; O2SAT 97
[2020-02-01] MEDS: HYDROcodone-acetaminophen 7.5-325 mg Tablet 1 TAB PO ×2 (04:01→11:41)
[2020-02-01 04:19] LABS: Basophils # 0.1 10^3/uL (0.0-0.1); Basophils % 0.4 %; Eosinophils # 0.3 10^3/uL (0.0-0.8); Eosinophils % 2.1 %; Hematocrit 39.6 % (42.0-52.0); Lymphocytes # 1.5 10^3/uL (0.8-4.8); Lymphocytes % 10.9 %; Mean Corpuscular HGB Conc 30.3 g/dL (30.0-36.0); Mean Corpuscular Hemoglobin 26.4 pg (28.0-34.0); Mean Platelet Volume 9.5 fL (7.4-10.4); Monocytes # 1.2 10^3/uL (0.2-0.9); Monocytes % 8.9 %; Neutrophils # 10.67 10^3/uL (1.8-7.7); Neutrophils % 77.3 %; Nucleated Red Blood Cells % 0 %; Platelet Count 340 10^3/cmm (130-400); Red Blood Count 4.55 10^6/uL (4.1-5.3); Red Cell Distribution Width 12.7 % (12.1-15.1); White Blood Count 13.8 10^3/uL (4.0-10.0)
[2020-02-01 04:36] LABS: Anion Gap 13.2 (5-19); Blood Urea Nitrogen 16 mg/dL (6-20); Calcium 8.8 mg/dL (8.5-10.5); Carbon Dioxide 28 mmol/L (22-29); Chloride 102 mmol/L (98-107); Glomerular Filtration Rate 50.7 mL/min (90-130); Glucose 113 mg/dL (65-115); Osmolality Calculated 290 mOsm/kg (285-295); Potassium 4.2 mmol/L (3.5-5.1); Sodium 139 mmol/L (136-145)
[2020-02-01] MEDS: lactobacillus 1 Tablet 1 TAB PO ×2 (07:54→13:11)
[2020-02-01] MEDS: nicotine 21 mg Patch 1 PATCH TRANSDERMA (07:54)
[2020-02-01] MEDS: ondansetron 4 MG Tablet PO (07:59)
[2020-02-01 08:00] VITALS: BP 152/93; PULSE 85; RESP 18; TEMP 37.4; O2SAT 98
[2020-02-01] MEDS: enoxaparin 40 mg/0.4 mL Syringe SUBCUT (11:21)
[2020-02-01] MEDS: morphine 4 mg/mL SDV 1 mL 2 MG IVP (11:41)
[2020-02-01 11:45] VITALS: BP 142/90; PULSE 88; RESP 18; TEMP 36.4; O2SAT 98
--- NOTE | 2020-02-01 12:40 | PM.DCS ---
Discharge Providers Date of Admission: 01/30/20 08:45 Date of Discharge: February 01, 2020 Attending Provider at Admission: Tracey Pineda DO Attending Provider at Discharge: Patricia Rawls MD Primary Care Provider: Esther Palomino MD Diagnoses at Discharge Discharge Diagnosis (1) Lymphedema: Status: Acute (2) Obesity: Status: Acute Qualifiers: Body mass index: BMI 50.0-59.9 Obesity classification: adult class 3 (BMI >= 40) Obesity type: unspecified obesity type Serious obesity comorbidity presence: unspecified whether serious comorbidity present Qualified Code(s): E66.01 - Morbid (severe) obesity due to excess calories; Z68.43 - Body mass index (BMI) 50.0-59.9, adult (3) Left knee pain: Status: Acute Qualifiers: Chronicity: acute Qualified Code(s): M25.562 - Pain in left knee (4) Knee fracture, left: Status: Acute Reason for Visit Reason for Visit: left leg pain Hospital Course Discharge Summary: Garo Scruggs is a 29 year old male with congenital lymphedema with history of cellulitis in the right leg at the approximate frequency of once every year. He presented complaining of increased pain in his left leg having overexerted earlier this week. He states that he was lifting some heavy stuff and may have after which he developed a fever of 100.1 and acute left groin pain. When it did not improve he presented to the ER. initially he was thought to have cellulitis of the left leg, however on serial examination there are no current signs of cellulitis. He initially received Zosyn and vancomycin in the ER which were discontinued. He was monitored for 24 hours off of antibiotics and did not exhibit any other signs of cellulitis. Of note he had recently received Cipro and Flagyl for gastroenteritis. Because of suspicion of a mechanical injury, CT of the extremity was performed and showed a tibial lateral plateau fracture which was nondisplaced. There are also tricompartmental osteoarthritic changes in the knee. Case was briefly discussed over the phone with Micaela Kaba and it appears that patient is a very poor surgical candidate given his obesity and lymphedema which puts him at an extremely high risk of septic arthritis if operated on. For now PT assessment was sought and crutches are being arranged at discharge. Outpatient PT is also being arranged. We will also arrange follow-up with Dr. Reyes in the office. He reports a history of recurrent cellulitis in the right leg at a frequency of about once a year. He is usually usually able to spot signs at onset such as significant fever redness and swelling the right leg along with limited mobility. He has been prescribed cefadroxil 1 g p.o. twice daily as a pill in pocket approach annd is to start the antibiotic at the first sign of infection and report to his PCP. Given once a year episodes, pill in pocket approach would be preferred over chronic daily suppression. Physical Exam Narrative: EXAM NARRATIVE: GEN: Awake, alert and oriented, no acute distress CVS: S1S2 N RS: CTA B/L Abd: Soft, nt/nd , bs+ HOSPITAL RECRUITER: no focal neuro deficits Discharge Data Data Completed and Pending: Completed Studies During Hospitalization Category Date Time Status CT knee LT wo con * [id number] Routine Cat Scan 01/31/20 11:33 Completed XR knee LT 3V* [id number] Stat Exams 01/30/20 07:06 [place] [id number] Urgent Ultrasound 01/30/20 07:09 Completed Pending at discharge Category Date Time Status Basic Metabolic P annemarie AM LABS Lab 02/02/20 04:00 Ordered Complete Blood Co unt w/Auto AM LABS Lab 02/02/20 04:00 Ordered Labs from last 24 hours 02/01/20 02/01/20 01/31/20 03:58 03:58 13:05 WBC 13.8 H RBC 4.55 Hgb 12.0 Hct 39.6 L MCV 87.0 MCH 26.4 L MCHC 30.3 RDW 12.7 Plt Count 340 MPV 9.5 Neut % (Auto) 77.3 Lymph % (Auto) 10.9 [place] % (Auto) 8.9 Eos % (Auto) 2.1 Baso % (Auto) 0.4 Neut # (Auto) 10.67 H Lymph # (Auto) 1.5 [place] # (Auto) 1.2 H Eos # (Auto) 0.3 Baso # (Auto) 0.1 Nucleated RBC % (a uto) 0 Nucleated RBCs # 0.0 Sodium 139 Potassium 4.2 Chloride 102 Carbon Dioxide 28 Anion Gap 13.2 BUN 16 Creatinine 1.6 H GFR Calculation 50.7 L Glucose 113 Calculated Osmolal ity 290 Calcium 8.8 SARS-CoV-2 Ag (Rap id) Negative Vitals: Last Vital Signs Temp 97.5 F L 02/01/20 11:45 Pulse 88 02/01/20 11:45 Resp 18 02/01/20 11:45 BP 142/90 02/01/20 11:45 Pulse Ox 98 02/01/20 11:45 Discharge Plan Discharge Patient Disposition: Home Condition: Stable Prescriptions: New hydrocodone-acetaminophen 7.5-325 mg Tablet 1 tab PO Q4H PRN (Reason: Moderate Pain) 7 Days Qty: 28 RF: 0 cefadroxil 1 gram tablet 1,000 mg PO BID 10 Days Qty: 20 RF: 0 Discontinued ondansetron HCl 4 mg tablet 4 mg PO Q8H PRN (Reason: Nausea) RF: 0 metronidazole 500 mg tablet 500 mg PO Q8H RF: 0 ciprofloxacin HCl 500 mg tablet 500 mg PO BID RF: 0 ibuprofen 200 mg Tablet 600 mg PO PRN RF: 0 Discharge Orders: Discharge Order (Routine); Ordered 02/01/20 Ordered By: Patricia Rawls Other Ambulatory Orders: Physical Therapy Eval and Treat Outpatient (Order) Timeframe: 1 Week Facility: [facility] - Location: Physical Therapy Ordered By: Patricia Rawls Discharge Diet: Usual diet Discharge Activity: Resume usual activity Discharge Attestations Time Spent in Discharge Care*: greater than 30 min Specific Discharge Activities: Specific discharge activities: educating and/or supporting family/caregiver and discussing with pcp/other providers Quality Metrics Clinical Quality Measures During this hospital stay, did patient experience: None Coding Level of Care Code Acute 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
[2020-02-01 13:12] VITALS: BP 142/90; PULSE 88; RESP 18; TEMP 36.4; O2SAT 98
--- NOTE | 2020-02-01 13:35 | PC.NURSE ---
Changed Lymphedema wraps due to physician wanting to visualize them before discharge. Given Two Hydrocodone-7.5/325mg for pain at home until his pharmacy opens on Sunday. Patient IV discontinued and covered with 2x2 and coban. Patient wheeled down in wheelchair and helped into his vehicle with present.
== END 2020-02-01 13:38 | disposition home or self-care (01) | DRG 563 ==
LOC: ER 06:57 → MEDSURG 09:24
PROVIDERS: Admitting Provider Family Medicine; Emergency Provider Emergency Medicine; PCP Family Medicine; Visit Provider Student in an Organized Health Care Education/Training Program
DX: S82.145A Nondisplaced bicondylar fracture of left tibia, initial encounter for closed fracture (principal); Z68.43 Body mass index [BMI] 50.0-59.9, adult; X50.9XXA Other and unspecified overexertion or strenuous movements or postures, initial encounter; K21.9 Gastro-esophageal reflux disease without esophagitis; E66.01 Morbid (severe) obesity due to excess calories; I89.0 Lymphedema, not elsewhere classified; M25.562 Pain in left knee; R10.32 Left lower quadrant pain; M17.12 Unilateral primary osteoarthritis, left knee
CPT/HCPCS: 12345; 29581; 36415; 73562; 73700; 80048; 80053; 82550; 84550; 85025; 86140; 87426; 93970; 96372; 96375; 97116; 97140; 97161; 97530; 99283; J1650; J2270; J2405; J2543; J3370; J7040; J7050; Q0162

== ENCOUNTER 2020-02-10 10:00 | Outpatient (CLI) | payer SELFPAY | END 2020-02-10 10:01 | disposition home or self-care (01) | LOC: SPT 12-10 12:18 | PROVIDERS: PCP Family Medicine; Visit Provider Student in an Organized Health Care Education/Training Program | DX: I89.0 Lymphedema, not elsewhere classified (principal) | CPT/HCPCS: 97161 ==

== ENCOUNTER 2020-02-27 11:57 | Emergency (ER) | payer SELFPAY ==
[2020-02-27 12:11] VITALS: BP 114/80; PULSE 99; RESP 20; TEMP 37; O2SAT 99; BMI 44.3
[2020-02-27 12:42] VITALS: BP 132/83; PULSE 99; RESP 18; O2SAT 100
--- NOTE | 2020-02-27 13:12 | USCV_ITS ---
Garo Scruggs Age: 29 Gender: M : 1990 Exam Date: 02/27/2020 13:32 Ordering Phys: Mariangel Saldana MD [facility] [place]ologist: Rickey Nails [place] [facility] [place] Indication: EDEMA HISTORY: LYMPHEDEMA PROCEDURES: On the left side, the common femoral, superficial femoral, profunda femoral, popliteal, posterior tibial, greater saphenous veins, and the peroneal trunk were identified and interrogated in the standard fashion. These veins were found to be easily compressible with spontaneous blood flow. FINDINGS: LT GSV ankle area and PTV left not visualized due to lymphedema. No DVT or superficial thrombus seen. Large complex collection in popliteal fossa most consistent with a Mejía's cyst. Measures over 7 cm in length. There is subcutaneous left lower extremity edema noted. CONCLUSIONS No DVT left lower extremity. Incomplete evaluation of distal GSV and PTV. Large Mejía's cyst. Dr. Debra Azevedo DO (Electronically Signed) Final Date: 27 February 2020 15:40 S
--- NOTE | 2020-02-27 13:15 | W.ED.EXTPRO ---
HPI - Extremity Problem General: Chief complaint: Extremity Injury, Lower Stated complaint: N/V Time Seen by Provider: 02/27/20 12:38 Source: patient Mode of arrival: ambulatory Limitations: no limitations History of Present Illness: HPI Narrative: Patient is a 29-year-old male with a history of lymphedema who presents to the emergency department with complaints of seen a few knots on his left lower extremity. He was recently diagnosed with a tibial plateau fracture that is being managed conservatively. He was concerned about a DVT to his primary care provider 28. For evaluation. He also complains of nausea, vomiting, night sweats. He states he is unable to keep anything down. He was very emphatic about the fact that he does not get cellulitis, he says that even though it is documented in his chart that he has cellulitis, he does not in fact have a history of cellulitis and all of his symptoms are due to lymphedema. Complaint: extremity pain and extremity swelling Associated symptoms: Reports chest pain; Deny fever(s) or rash Review of Systems General: Reports: 10 or more systems reviewed and unremarkable except in HPI and below Const: Denies: fever(s), chills or body aches Eyes: Denies: change in vision or blurry vision ENMT: Denies: throat pain, enlarged tonsils, odynophagia, hoarseness, mouth pain or swelling of lips/tongue Card: Reports: chest pain and swelling of feet/ankles; Denies: palpitations, irregular heart rhythm or edema Resp: Denies: dyspnea, productive cough or non-productive cough GI: Denies: abdominal pain, nausea or vomiting : Denies: flank pain, dysuria, urinary frequency, urinary urgency or urinary hesitancy Musc: Reports: extremity pain and extremity swelling; Denies: neck pain or back pain Skin/Breast: Denies: rash, pruritus or erythema Neuro: Denies: headache(s), numbness in extremities or weakness in extremities Endo: Denies: polyuria, polydipsia or tired all the time [facility] PFSH: Medical History (Reviewed 02/27/20 @ 13:18 by Mariangel Saldana [place], [facility] [place] GERD (gastroesophageal reflux disease) Lymphedema Obesity Surgical History (Reviewed 02/27/20 @ 13:18 by Mariangel Saldana MD, [facility] [place] History of appendectomy History of hernia repair Family History (Reviewed 02/27/20 @ 13:18 by Mariangel Saldana [place] [facility] [place] Other Diabetes Hypertension Social History (Reviewed 02/27/20 @ 13:18 by Mariangel Saldana MD, [facility] [place] Smoking and tobacco status: never smoked Alcohol intake: current Alcohol intake frequency: holidays/special occasions only Physical Exam Const: COMMON NORMALS: no acute distress, average body habitus, patient oriented x3, no limitations, healthy appearing, alert and well nourished HENMT: COMMON NORMALS: normocephalic, atraumatic and moist oral mucous membranes HEAD & SCALP: normocephalic and atraumatic Neck/C-Spine: COMMON NORMALS: no meningeal signs and no JVD Chest: COMMONS NORMALS: normal inspection of the chest and normal palpation of entire chest wall Resp: COMMON NORMALS: normal respiratory effort, No retractions, No use of accessory muscles, clear to auscultation bilaterally and percussion normal AUSCULTATION: clear to auscultation bilaterally PERCUSSION: percussion normal Cardio: COMMON NORMALS: no JVD, regular rate, regular rhythm, S1 normal heart sound present, S2 normal heart sound present, No gallops present (Cardio), No clicks present (Cardio), No murmurs present (Cardio), No rub (Cardio) and Peripheral pulses 2+ throughout RATE: regular rate RHYTHM: regular rhythm HEART SOUNDS: S1 normal heart sound present and S2 normal heart sound present PERIPHERAL PULSES: Peripheral pulses 2+ throughout GI: COMMON NORMALS: Normal to inspection, nondistended, normoactive bowel sounds present, Soft to palpation, non-tender, No hepatosplenomegaly present, no masses and no bruits PALPATION: Yes Soft to palpation and Yes No hepatosplenomegaly present Extremity: COMMON NORMALS: capillary refill normal and no calf tenderness NARRATIVE EXTREMITY EXAM: Patient has bilateral lymphedema, left greater than right. Left lower extremity has an area of erythema on the upper cough and anterior upper leg. Both areas are pretty warm when compared to the rest of his leg. Neuro: COMMON NORMALS: patient oriented x3 SENSORIUM/ORIENTATION: Yes alert MENINGEAL SIGNS: Yes no meningeal signs Skin: COMMON NORMALS: no rashes or lesions noted, no wounds, turgor normal, no jaundice, no petechiae and no mottling GENERAL SKIN EXAM: no rashes or lesions noted and turgor normal Course Reevaluation(s): Reevaluation #1: Discussed his lab and imaging findings with him. I explained that ultrasound was negative for DVT but he has a large popliteal cyst. Advised that the usual treatment is intra-articular steroid injection above since he has a current tibial plateau fracture I am not sure that a good idea to give an intra-articular steroid. Advised conservative measures with pain medication, NSAIDs, and to follow-up with orthopedic. I explained he has significant leukocytosis but he says that is normal for him when he gets dehydrated and he is still certain he has no cellulitis and would not receive treatment for it. We will give him 1 more liter of normal saline and discharge him home with pain medication. He voiced understanding and is in agreement with the plan Time: 16:11 Vital Signs: Vital signs: Vital Signs Temperature 98.6 F 02/27/20 12:11 Pulse Rate 95 02/27/20 17:49 Respiratory Rate 18 02/27/20 17:49 Blood Pressure 111/60 02/27/20 17:49 Pulse Oximetry 100 02/27/20 17:49 MDM - Extremity (Nontraumatic) MDM Narrative: Medical decision making narrative: 49-year-old male with a history of lymphedema who has a recent left tibial plateau fracture. He had a swelling behind his knee and he was concerned about a DVT. Venous ultrasound done was negative for DVT, however he has a large Mejía's cyst. Because of his recent fracture I did not attempt an intra-articular injection. He is going to be managed conservatively and is advised to follow-up with an orthopedic surgeon. He had also been having episodes of nausea and vomiting which he attributed to hydrocodone. He states when he gets dehydrated his white cell count goes up and he believes that was the reason why he has leukocytosis today. He is certain that he does not have cellulitis and will not entertain that diagnosis. He has been dealing with a lymphedema for multiple years and he knows his body. Medical Records: Attestation: I reviewed the patient's medical records. Lab Data: Attestation: I reviewed the patient's lab results. Labs: Lab Results 02/27/20 02/27/20 02/27/20 Range/Units 13:37 13:56 13:56 WBC 20.4 H (4.0-10.0) 10^3/ uL RBC 4.15 (4.1-5.3) 10^6/u L Hgb 10.6 L (11.7-16.6) g/dL Hct 35.8 L (42.0-52.0) % MCV 86.3 (80-94) fL MCH 25.5 L (28.0-34.0) pg MCHC 29.6 L (30.0-36.0) g/dL RDW 13.2 (12.1-15.1) % Plt Count 563 H (130-400) 10^3/c mm MPV 9.4 (7.4-10.4) fL Neut % (Auto) 84.6 % Lymph % (Auto) 6.9 % [place] % (Auto) 6.0 % Eos % (Auto) 0.6 % Baso % (Auto) 0.4 % Neut # (Auto) 17.25 H (1.8-7.7) 10^3/u L Lymph # (Auto) 1.4 (0.8-4.8) 10^3/u L [place] # (Auto) 1.2 H (0.2-0.9) 10^3/u L Eos # (Auto) 0.1 (0.0-0.8) 10^3/u L Baso # (Auto) 0.1 (0.0-0.1) 10^3/u L Nucleated RBC % (a uto) 0 % Nucleated RBCs # 0.0 /100WBC Sodium 133 L (136-145) mmol/L Potassium 4.1 (3.5-5.1) mmol/L Chloride 97 L (98-107) mmol/L Carbon Dioxide 26 (22-29) mmol/L Anion Gap 14.1 (5-19) BUN 13 (6-20) mg/dL Creatinine 0.8 (0.7-1.2) mg/dL GFR Calculation 112.8 (90-130) mL/min Glucose 104 (65-115) mg/dL Calculated Osmolal ity 276 L (285-295) mOsm/k g Lactate (0.5-2.2) mmol/L Calcium 8.6 (8.5-10.5) mg/dL Total Bilirubin 0.3 (0.15-1.2) mg/dL AST 48 H (0-40) U/L ALT 86 H (0-41) U/L Alkaline Phosphata se 203 H (40-130) IU/L Creatine Kinase 46 (39-308) U/L C-Reactive Protein 250.6 H (0.0-4.9) mg/L Total Protein 6.6 (6.6-8.7) g/dL Albumin 2.5 L (3.5-5.2) g/dL Globulin 4.1 (1.3-4.6) g/dL Lipase 22 (13-60) U/L Urine Color Yellow (Yellow) Urine Appearance Clear (CLEAR) Urine pH 5.0 (5-7) Ur Specific Gravit y 1.015 (1.005-1.030) Urine Protein Neg (Negative) Urine Glucose (UA) Norm (Normal) Urine Ketones Negative (Negative) Urine Blood Neg (Negative) Urine Nitrate Negative (Negative) Urine Bilirubin 1+ H (Negative) Urine Urobilinogen 1 H (Negative) mg/dL Ur Leukocyte Deisy ase Negative (Negative) 02/27/20 Range/Units 13:56 WBC (4.0-10.0) 10^3/ uL RBC (4.1-5.3) 10^6/u L Hgb (11.7-16.6) g/dL Hct (42.0-52.0) % MCV (80-94) fL MCH (28.0-34.0) pg MCHC (30.0-36.0) g/dL RDW (12.1-15.1) % Plt Count (130-400) 10^3/c mm MPV (7.4-10.4) fL Neut % (Auto) % Lymph % (Auto) % [place] % (Auto) % Eos % (Auto) % Baso % (Auto) % Neut # (Auto) (1.8-7.7) 10^3/u L Lymph # (Auto) (0.8-4.8) 10^3/u L [place] # (Auto) (0.2-0.9) 10^3/u L Eos # (Auto) (0.0-0.8) 10^3/u L Baso # (Auto) (0.0-0.1) 10^3/u L Nucleated RBC % (a uto) % Nucleated RBCs # /100WBC Sodium (136-145) mmol/L Potassium (3.5-5.1) mmol/L Chloride (98-107) mmol/L Carbon Dioxide (22-29) mmol/L Anion Gap (5-19) BUN (6-20) mg/dL Creatinine (0.7-1.2) mg/dL GFR Calculation (90-130) mL/min Glucose (65-115) mg/dL Calculated Osmolal ity (285-295) mOsm/k g Lactate 2.1 (0.5-2.2) mmol/L Calcium (8.5-10.5) mg/dL Total Bilirubin (0.15-1.2) mg/dL AST (0-40) U/L ALT (0-41) U/L Alkaline Phosphata se (40-130) IU/L Creatine Kinase (39-308) U/L C-Reactive Protein (0.0-4.9) mg/L Total Protein (6.6-8.7) g/dL Albumin (3.5-5.2) g/dL Globulin (1.3-4.6) g/dL Lipase (13-60) U/L Urine Color (Yellow) Urine Appearance (CLEAR) Urine pH (5-7) Ur Specific Gravit y (1.005-1.030) Urine Protein (Negative) Urine Glucose (UA) (Normal) Urine Ketones (Negative) Urine Blood (Negative) Urine Nitrate (Negative) Urine Bilirubin (Negative) Urine Urobilinogen (Negative) mg/dL Ur Leukocyte Deisy ase (Negative) Imaging Data^: US Vascular: Radiologist's impression: [address] [address] Ultrasound Report Signed Patient: Garo Scruggs #: [id number] : 1990Acct#:[id number] Age/Sex: 29 / MADM Date: 02/27/20 Loc: ERRoom/Bed: Attending Dr: Ordering Provider/Ordering MD: Mariangel Saldana [place], [facility] [place] Date of Service: 02/27/20 Procedure(s): [place] [id number] Accession Number(s): [id number] Report Number: [id number] Garo Scruggs Age: 29 Gender: M : 1990 Exam Date: 02/27/2020 13:32 Ordering Phys: Mariangel Saldana MD [facility] [place] Technologist: Rickey Nails Exam Location: [facility] [place] Indication: EDEMA HISTORY: LYMPHEDEMA PROCEDURES: On the left side, the common femoral, superficial femoral, profunda femoral, popliteal, posterior tibial, greater saphenous veins, and the peroneal trunk were identified and interrogated in the standard fashion. These veins were found to be easily compressible with spontaneous blood flow. FINDINGS: LT GSV ankle area and PTV left not visualized due to lymphedema. No DVT or superficial thrombus seen. Large complex collection in popliteal fossa most consistent with a Mejía's cyst. Measures over 7 cm in length. There is subcutaneous left lower extremity edema noted. CONCLUSIONS No DVT left lower extremity. Incomplete evaluation of distal GSV and PTV. Large Mejía's cyst. Dr. Debra Azevedo DO (Electronically Signed) Final Date: 27 February 2020 15:40 S Discharge Plan Discharge Patient Disposition: Home Clinical Impression: Nausea & vomiting Qualifiers: Vomiting type: unspecified Vomiting Intractability: non-intractable Qualified Code(s): R11.2 - Nausea with vomiting, unspecified Mejía's cyst of knee Qualifiers: Laterality: left Qualified Code(s): M71.22 - Synovial cyst of popliteal space [Mejía], left knee Fracture of tibial plateau, closed Qualifiers: Encounter type: subsequent encounter Laterality: left Fracture healing: with routine healing Qualified Code(s): S82.142D - Displaced bicondylar fracture of left tibia, subsequent encounter for closed fracture with routine healing Leukocytosis Qualifiers: Leukocytosis type: unspecified Qualified Code(s): D72.829 - Elevated white blood cell count, unspecified Condition: Stable Prescriptions: New oxycodone 5 mg tablet 5 mg PO Q8H PRN (Reason: pain) Qty: 10 RF: 0 promethazine 25 mg tablet 25 mg PO QID PRN (Reason: nausea and vomiting) Qty: 14 RF: 0 Continued ondansetron HCl 4 mg tablet 4 mg PO Q8H PRN (Reason: N/V) RF: 0 Discontinued hydrocodone-acetaminophen 7.5-325 mg tablet 1 tab PO Q4H PRN (Reason: Pain) RF: 0 Discharge Orders: Discharge Order (Routine); Ordered 02/27/20 Ordered By: Mariangel Saldana Referrals: Esther Palomino MD [Primary Care Provider] - 1-3 days Discharge Diet: Usual diet Discharge Activity: Limit activity as instructed Patient Instructions: Mejía's Cyst (ED), Acute Nausea and Vomiting (ED), Leukocytosis (ED) Activity Restrictions/Additional Instructions: Return for any new or worsening symptoms. Follow-up with your primary care provider within 3 days. Follow-up with an orthopedic surgeon as soon as you can. Take the pain medication as prescribed. Continue to be nonweightbearing on your left lower extremity. Discharge Date/Time: 02/27/20 17:57 Coding Level of Care Code ED Radio Division Lieutenant for Tim [facility] Exam Comprehensive
[2020-02-27 13:43] LABS: Add Urine Microscopic? NO
[2020-02-27 13:47] LABS: Bilirubin Urine 1+ (Negative); Blood Urine Neg (Negative); Glucose Urine UA Norm (Normal); Ketones Urine Negative (Negative); Leukocyte Esterase Urine Negative (Negative); Nitrate Urine Negative (Negative); Protein Urine Neg (Negative); Specific Gravity, Urine 1.015 (1.005-1.030); Urine Appearance Clear (CLEAR); Urine Color Yellow (Yellow); Urobilinogen Urine 1 mg/dL (Negative)
[2020-02-27 14:14] LABS: Basophils # 0.1 10^3/uL (0.0-0.1); Basophils % 0.4 %; Eosinophils # 0.1 10^3/uL (0.0-0.8); Eosinophils % 0.6 %; Hematocrit 35.8 % (42.0-52.0); Hemoglobin 10.6 g/dL (11.7-16.6); Lymphocytes # 1.4 10^3/uL (0.8-4.8); Lymphocytes % 6.9 %; Mean Corpuscular HGB Conc 29.6 g/dL (30.0-36.0); Mean Corpuscular Hemoglobin 25.5 pg (28.0-34.0); Mean Corpuscular Volume 86.3 fL (80-94); Mean Platelet Volume 9.4 fL (7.4-10.4); Monocytes # 1.2 10^3/uL (0.2-0.9); Neutrophils # 17.25 10^3/uL (1.8-7.7); Neutrophils % 84.6 %; Nucleated Red Blood Cells % 0 %; Platelet Count 563 10^3/cmm (130-400); Red Blood Count 4.15 10^6/uL (4.1-5.3); Red Cell Distribution Width 13.2 % (12.1-15.1); White Blood Count 20.4 10^3/uL (4.0-10.0)
[2020-02-27 14:32] LABS: Lactate (Lactic Acid level) 2.1 mmol/L (0.5-2.2)
[2020-02-27 14:34] LABS: Alanine Aminotransferase 86 U/L (0-41); Albumin Level 2.5 g/dL (3.5-5.2); Alkaline Phosphatase 203 IU/L (40-130); Anion Gap 14.1 (5-19); Aspartate Amino Transferase 48 U/L (0-40); Blood Urea Nitrogen 13 mg/dL (6-20); C Reactive Protein 250.6 mg/L (0.0-4.9); Calcium 8.6 mg/dL (8.5-10.5); Carbon Dioxide 26 mmol/L (22-29); Chloride 97 mmol/L (98-107); Creatine Phosphokinase 46 U/L (39-308); Globulin 4.1 g/dL (1.3-4.6); Glomerular Filtration Rate 112.8 mL/min (90-130); Glucose 104 mg/dL (65-115); Lipase 22 U/L (13-60); Osmolality Calculated 276 mOsm/kg (285-295); Potassium 4.1 mmol/L (3.5-5.1); Sodium 133 mmol/L (136-145); Total Bilirubin 0.3 mg/dL (0.15-1.2); Total Protein 6.6 g/dL (6.6-8.7)
[2020-02-27] MEDS: ondansetron 2 mg/ML SDV 2 mL 4 MG IVP (14:41)
[2020-02-27] MEDS: sodium chloride 0.9% 1,000 ML 999 ML IV ×2 (14:41→16:20)
[2020-02-27 14:57] VITALS: RESP 18
[2020-02-27] MEDS: morphine 4 mg/mL SDV 1 mL 8 MG IVP (14:57)
[2020-02-27 14:58] VITALS: BP 139/89; PULSE 88; RESP 18; O2SAT 100
[2020-02-27 16:22] VITALS: BP 113/71; PULSE 93; RESP 17; O2SAT 100
[2020-02-27 17:49] VITALS: BP 111/60; PULSE 95; RESP 18; O2SAT 100
== END 2020-02-27 17:57 | disposition home or self-care (01) ==
PROVIDERS: Emergency Provider Family Medicine; PCP Family Medicine
DX: R11.2 Nausea with vomiting, unspecified (principal); D72.829 Elevated white blood cell count, unspecified; M71.22 Synovial cyst of popliteal space [Baker], left knee; S82.142A Displaced bicondylar fracture of left tibia, initial encounter for closed fracture; X58.XXXA Exposure to other specified factors, initial encounter
CPT/HCPCS: 12345; 36415; 80053; 81003; 82550; 83605; 83690; 85025; 86140; 93971; 96361; 96374; 96375; 99283; J2270; J2405; J7030

== ENCOUNTER 2020-03-15 09:35 | Outpatient (CLI) | payer SELFPAY | END 2020-03-15 09:36 | disposition home or self-care (01) | LOC: WOUND 09:35 | PROVIDERS: PCP Family Medicine; Visit Provider Nurse Practitioner Family | DX: T81.89XA Other complications of procedures, not elsewhere classified, initial encounter (principal) | CPT/HCPCS: 11042 ==

== ENCOUNTER 2020-03-18 08:01 | Outpatient (CLI) | payer SELFPAY | END 2020-03-18 08:02 | disposition home or self-care (01) | LOC: WOUND 08:02 | PROVIDERS: PCP Family Medicine; Visit Provider Nurse Practitioner Family | DX: Q82.0 Hereditary lymphedema (principal); T81.31XA Disruption of external operation (surgical) wound, not elsewhere classified, initial encounter; Y83.8 Other surgical procedures as the cause of abnormal reaction of the patient, or of later complication, without mention of misadventure at the time of the procedure | CPT/HCPCS: 97605 ==

== ENCOUNTER 2020-03-22 10:38 | Outpatient (CLI) | payer SELFPAY | END 2020-03-22 10:39 | disposition home or self-care (01) | LOC: WOUND 10:38 | PROVIDERS: PCP Family Medicine; Visit Provider Nurse Practitioner Family | DX: T81.89XA Other complications of procedures, not elsewhere classified, initial encounter (principal) | CPT/HCPCS: 11042 ==

== ENCOUNTER 2020-03-29 10:56 | Outpatient (CLI) | payer SELFPAY | END 2020-03-29 10:57 | disposition home or self-care (01) | LOC: WOUND 10:57 | PROVIDERS: PCP Family Medicine; Visit Provider Nurse Practitioner Family | DX: T81.89XA Other complications of procedures, not elsewhere classified, initial encounter (principal); Y83.8 Other surgical procedures as the cause of abnormal reaction of the patient, or of later complication, without mention of misadventure at the time of the procedure | CPT/HCPCS: 11042 ==

== ENCOUNTER 2020-04-08 09:42 | Outpatient (CLI) | payer SELFPAY | END 2020-04-08 09:43 | disposition home or self-care (01) | LOC: WOUND 09:43 | PROVIDERS: PCP Family Medicine; Visit Provider Nurse Practitioner Family | DX: I89.0 Lymphedema, not elsewhere classified (principal); L97.822 Non-pressure chronic ulcer of other part of left lower leg with fat layer exposed | CPT/HCPCS: 11042 ==

== ENCOUNTER 2020-04-15 09:43 | Outpatient (CLI) | payer SELFPAY | END 2020-04-15 09:44 | disposition home or self-care (01) | LOC: WOUND 09:43 | PROVIDERS: PCP Family Medicine; Visit Provider Nurse Practitioner Family | DX: I89.0 Lymphedema, not elsewhere classified (principal); L97.822 Non-pressure chronic ulcer of other part of left lower leg with fat layer exposed | CPT/HCPCS: 11042 ==

== ENCOUNTER 2020-04-29 09:10 | Outpatient (CLI) | payer SELFPAY | END 2020-04-29 09:11 | disposition home or self-care (01) | LOC: WOUND 09:11 | PROVIDERS: PCP Family Medicine; Visit Provider Nurse Practitioner Family | DX: Z09 Encounter for follow-up examination after completed treatment for conditions other than malignant neoplasm (principal) | CPT/HCPCS: G0463 ==

== ENCOUNTER → 2022-07-26 13:48 | Outpatient (BNVA) | payer MEDICARE, MEDICAID, SELFPAY | PROVIDERS: PCP Family Medicine; Visit Provider Nurse Practitioner Family | DX: J02.9 Acute pharyngitis, unspecified (principal) | CPT/HCPCS: 87071; 87880 ==

== ENCOUNTER 2023-01-04 18:29 | Emergency (ER) | payer MEDICARE, MEDICAID, SELFPAY ==
[2023-01-04 18:38] VITALS: BP 160/107; PULSE 75; RESP 16; TEMP 36.7; O2SAT 97; BMI 45.8
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
== END 2023-01-04 19:25 | disposition home or self-care (01) ==
PROVIDERS: Emergency Provider Emergency Medicine; PCP Family Medicine
DX: S01.412A Laceration without foreign body of left cheek and temporomandibular area, initial encounter (principal); W20.8XXA Other cause of strike by thrown, projected or falling object, initial encounter
CPT/HCPCS: 99282

== ENCOUNTER → 2023-02-19 16:00 | Outpatient (BNVA) | payer MEDICARE, MEDICAID, SELFPAY | PROVIDERS: PCP Family Medicine; Visit Provider Nurse Practitioner | DX: I89.0 Lymphedema, not elsewhere classified (principal); E66.9 Obesity, unspecified; L03.119 Cellulitis of unspecified part of limb | CPT/HCPCS: 80053; 85025 ==

== ENCOUNTER → 2023-05-01 15:25 | Outpatient (BNVA) | payer MEDICARE, MEDICAID, SELFPAY | PROVIDERS: PCP Nurse Practitioner; Visit Provider Nurse Practitioner | DX: I89.0 Lymphedema, not elsewhere classified (principal) | CPT/HCPCS: 80053 ==

== ENCOUNTER → 2023-07-17 13:26 | Outpatient (BNVA) | payer MEDICARE, MEDICAID, SELFPAY | PROVIDERS: PCP Nurse Practitioner; Visit Provider Nurse Practitioner | DX: L03.90 Cellulitis, unspecified (principal) | CPT/HCPCS: 80053; 85025 ==

== ENCOUNTER → 2023-12-18 09:56 | Outpatient (BNVA) | payer MEDICARE, MEDICAID, SELFPAY | PROVIDERS: PCP Nurse Practitioner; Visit Provider Nurse Practitioner | DX: E55.9 Vitamin D deficiency, unspecified (principal) | CPT/HCPCS: 80053; 82306 ==

== ENCOUNTER → 2024-03-13 09:16 | Outpatient (BNVA) | payer MEDICARE, MEDICAID, SELFPAY | PROVIDERS: PCP Nurse Practitioner; Referring Provider Nurse Practitioner; Visit Provider Student in an Organized Health Care Education/Training Program | DX: L72.9 Follicular cyst of the skin and subcutaneous tissue, unspecified (principal) | CPT/HCPCS: 99204 ==

== ENCOUNTER 2024-04-10 08:46 | Emergency (ER) | payer MEDICARE, SELFPAY ==
[2024-04-10 08:59] VITALS: BP 136/81; PULSE 71; RESP 18; TEMP 36.7; O2SAT 97
--- NOTE | 2024-04-10 10:10 | W.ED.EYEPROB ---
HPI - Eye Problem General: Chief complaint: Eye Problems Stated complaint: something in R eye Time Seen by Provider: 04/10/24 08:47 History of Present Illness: Patient has had swelling of his upper eyelid and around his upper eye for a couple days now. He has had some green drainage. No eye pain. No conjunctivitis is obvious. No vision changes. He does note that he had been doing some grinding recently but he had been wearing safety glasses and again he has no pain. No fever. No cough. No congestion. Related Data Home Medications Medication Instructions Recorded Confirmed cholecalciferol (vitamin D3) 50 50 mcg PO DAILY 03/04/24 04/10/24 mcg (2,000 unit) capsule Previous Rx's Medication Instructions Recorded acarbose 100 mg tablet 100 mg PO TID #90 tabs 03/04/24 furosemide 40 mg tablet 40 mg PO QAM #30 tabs 03/04/24 potassium chloride 10 mEq 10 meq PO DAILY #30 tabs 03/04/24 tablet,extended release(part/cryst) amoxicillin 875 mg-potassium 1 tab PO BID 7 days #14 tabs 04/10/24 clavulanate 125 mg tablet polymyxin B sulfate 10,000 1 drp ophthalmic (eye) Q3H 7 days 04/10/24 unit-trimethoprim 1 mg/mL eye drops #10 mL Allergies Allergy/AdvReac Type Severity Reaction Status Date / Time Sulfa (Sulfonamide Allergy Intermediate ALGY-Hives Verified 03/13/24 09:40 Antibiotics) clindamycin Allergy Unknown ADR-Vomitin Verified 03/13/24 09:40 g raspberry Allergy Unknown Verified 04/10/24 09:03 Review of Systems Narrative: Constitutional symptoms: Negative except as documented in HPI. Skin symptoms: Negative except as documented in HPI. Eye symptoms: Negative except as documented in HPI. ENMT symptoms: Negative except as documented in HPI. Respiratory symptoms: Negative except as documented in HPI. Cardiovascular symptoms: Negative except as documented in HPI. Gastrointestinal symptoms: Negative except as documented in HPI. Genitourinary symptoms: Negative except as documented in HPI. Musculoskeletal symptoms: Negative except as documented in HPI. Neurologic symptoms: Negative except as documented in HPI. Psychiatric symptoms: Negative except as documented in HPI. Endocrine symptoms: Negative except as documented in HPI. PFSH ED PFSH: Medical History Periorbital cellulitis of left eye GERD (gastroesophageal reflux disease) Obesity Lymphedema Surgical History History of hernia repair History of appendectomy Family History Other Diabetes Hypertension Social History (Updated 03/13/24 @ 09:43 by SOSA Brown) Smoking and tobacco/nicotine status: never used tobacco/nicotine Second hand smoke exposure: No Alcohol intake: current Alcohol intake frequency: holidays/special occasions only Substance/Drug Use: unknown Adopted: No Caregiver/support person: No Lives independently: Yes Household members: spouse Housing: House Marital status: Number of children: 0 service: No Current occupational status: unemployed Current occupational exposures/hazards: No Pets and animals: Yes Pets & animals: dog(s) Do you think of yourself as: Straight/Heterosexual Current gender identity: Male Physical Exam Narrative: EXAM NARRATIVE: General: Alert, no acute distress. Skin: warm and dry Head: Normocephalic Neck: Trachea midline Eye: Extraocular movements are intact. Vision appears grossly normal. Pupils are equal and reactive. Conjunctive a appear normal. There is swelling of the upper eyelid and periorbital area. There does appear to be some purulent drainage. Ears, nose, mouth and throat: Oral mucosa moist Respiratory: Respirations are non-labored Musculoskeletal: Normal ROM Neurological: Alert and oriented, No focal neurological deficit observed. Psychiatric: Cooperative, appropriate mood & affect. Course Vital Signs: Vital signs: Vital Signs Temperature 98.1 F 04/10/24 08:59 Pulse Rate 71 04/10/24 08:59 Respiratory Rate 18 04/10/24 08:59 Blood Pressure 136/81 04/10/24 08:59 Pulse Oximetry 97 04/10/24 08:59 Oxygen Delivery Me thod Room Air 04/10/24 08:59 MDM - Eye Problem Medical Decision Making Assessment and plan: Periorbital cellulitis ?Home with Augmentin and steroid/antibiotic eyedrops - Discharged home - Discussed plan with patient. Answered any questions. - Evaluation and treatment of this problem were appropriate in the emergency setting. No radiology studies performed this visit Discharge Plan Discharge Patient Disposition: Home Clinical Impression: Periorbital cellulitis Condition: Stable Prescriptions: New polymyxin B sulf-trimethoprim 10,000 unit- 1 mg/mL drops 1 drp ophthalmic (eye) Q3H 7 Days Qty: 10 0RF Rx Instructions: while awake; do not exceed 6 doses in 24 hours amoxicillin-pot clavulanate 875-125 mg tablet 1 tab PO BID 7 Days Qty: 14 0RF No Action acarbose 100 mg tablet 100 mg PO TID Qty: 90 2RF Rx Instructions: take before food furosemide 40 mg tablet 40 mg PO QAM Qty: 30 2RF potassium chloride 10 mEq tablet,ER particles/crystals 10 meq PO DAILY Qty: 30 2RF cholecalciferol (vitamin D3) 50 mcg (2,000 unit) capsule 50 mcg PO DAILY Discharge Orders: Discharge ED (Routine); Ordered 04/10/24 Ordered By: Emiliana Casper Referrals: Albino Iqbal, ARNEL [Primary Care Provider] - Discharge Diet: Usual diet Discharge Activity: Resume usual activity Patient Instructions: Periorbital Cellulitis (ED), Opioid Safety, Pain Management Activity Restrictions/Additional Instructions: Thank you for choosing [facility] for your healthcare needs today. Please realize this is an emergency room and that we are providing you with a medical screening exam and this may not be complete and all inclusive of all the testing and or work up that you may need to determine your ailment or severity of your illness. You have been screened and evaluated and felt safe for discharge. Health conditions do change or evolve sometimes and as such it is important that you follow up with your Primary Doctor to be re checked, 3-5 days is a general good time frame for follow up. 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
== END 2024-04-10 10:30 | disposition home or self-care (01) ==
PROVIDERS: Emergency Provider Emergency Medicine; PCP Nurse Practitioner
DX: L03.213 Periorbital cellulitis (principal)
CPT/HCPCS: 99283

== ENCOUNTER 2024-05-07 05:52 | Day surgery (SDC) | payer MEDICARE, SELFPAY ==
[2024-05-07] VITALS (13 sets, daily range): BP systolic 120–147; BP diastolic 74–88; PULSE 62–100; RESP 15–18; TEMP 36.1–36.6; O2SAT 95–99; BMI 46.2
[2024-05-07] MEDS: sodium chloride 0.9% 1,000 ML 30 ML IV (06:30)
--- NOTE | 2024-05-07 06:47 | ANES.PREANE2 ---
Pre-Anesthetic Assessment Height/Weight: Height 1.75 m Weight 141.974 kg Temp Pulse Resp BP Pulse Ox O2 Del Method 97.7 F 68 18 136/78 96 Room Air 05/07/24 06:07 05/07/24 06:07 05/07/24 06:07 05/07/24 06:07 05/07/24 06:07 05/07/24 06:13 Operation Date: 05/07/24 07:00 Proposed Procedures p soft tissue removal left side of scalp 96753, L72.9(Left) - Bertin Braun MD Familial anesthetic complications: none Was Beta Pat taken within 24 hours: N/A Was Clonidine taken within 24 hours: N/A Last intake: Intake Last Liquid Date 05/06/24 Last Liquid Time 21:00 Last Solid Date 05/06/24 Last Solid Time 17:30 Social No alcohol and No tobacco Exam alert, oriented x 3, clear to auscultation bilaterally and regular rate & rhythm Airway Submandibular: within normal limits Cervical ROM: within normal limits Mallampati: Class II Dentition: full CV/HEM Lower extremity lymphedema Metabolic Morbid Obesity Anesthetic Plan ASA status: 2 Anesthesia: General Medications/Allergies Home Medications Medication Instructions Recorded Confirmed Last Taken Type acarbose 100 mg tablet 100 mg PO TID #90 tabs 03/04/24 05/06/24 05/06/24 Rx cholecalciferol (vitamin D3) 50 50 mcg PO DAILY 03/04/24 05/06/24 05/06/24 History mcg (2,000 unit) capsule furosemide 40 mg tablet 40 mg PO QAM #30 tabs 03/04/24 05/06/24 05/06/24 Rx potassium chloride 10 mEq 10 meq PO DAILY #30 tabs 03/04/24 05/06/24 05/06/24 Rx tablet,extended release(part/cryst) Allergies Allergy/AdvReac Type Severity Reaction Status Date / Time Sulfa (Sulfonamide Allergy Intermediate ALGY-Hives Verified 05/07/24 06:06 Antibiotics) clindamycin Allergy Unknown ADR-Vomitin Verified 05/07/24 06:06 g raspberry Allergy Unknown Verified 05/07/24 06:06 Current Medications Generic Name Dose Route Start Last Admin Trade Name Freq PRN Reason Stop Dose Admin Sodium Chloride 1,000 mls @ 30 mls/hr 05/07/24 06:00 05/07/24 06:30 Sodium Chloride 0.9% IV 05/08/24 05:59 30 mls/hr .Q24H ION Administration PFSH Anesthesia Medical History Periorbital cellulitis of left eye GERD (gastroesophageal reflux disease) Obesity Lymphedema Surgical History History of hernia repair History of appendectomy Family History Other Diabetes Hypertension Social History (Updated 03/13/24 @ 09:[address]) Smoking and tobacco/nicotine status: never used tobacco/nicotine Second hand smoke exposure: No Alcohol intake: current Alcohol intake frequency: holidays/special occasions only Substance/Drug Use: unknown Adopted: No Caregiver/support person: No Lives independently: Yes Household members: spouse Housing: House Marital status: Number of children: 0 service: No Current occupational status: unemployed Current occupational exposures/hazards: No Pets and animals: Yes Pets & animals: dog(s) Do you think of yourself as: Straight/Heterosexual Current gender identity: Male Data Anesthesia Cardiac Studies: No Data to Display
--- NOTE | 2024-05-07 07:01 | W.PM.OPSFHP ---
Same Day Surgery H&P Indication for Procedure/HPI DATE OF PROCEDURE: May 07, 2024 CHIEF COMPLAINT/INDICATIONFOR SURGICAL PROCEDURE: left scalp soft tissue mass PREOP DIAGNOSIS: left scalp soft tissue mass PLANNED PROCEDURE: Operation Date: 05/07/24 07:00 Proposed Procedures p soft tissue removal left side of scalp 29669, L72.9(Left) - Bertin Braun MD Medications/Allergies* Home Medications Medication Instructions Recorded Confirmed Type cholecalciferol (vitamin D3) 50 50 mcg PO DAILY 03/04/24 05/06/24 History mcg (2,000 unit) capsule Allergies/Adverse Reactions Allergy/AdvReac Type Severity Reaction Status Date / Time Sulfa (Sulfonamide Allergy Intermediate ALGY-Hives Verified 05/07/24 06:06 Antibiotics) clindamycin Allergy Unknown ADR-Vomitin Verified 05/07/24 06:06 g raspberry Allergy Unknown Verified 05/07/24 06:06 Current Medications: Generic Name Dose Route Start Last Admin Trade Name Freq PRN Reason Stop Dose Admin Sodium Chloride 1,000 mls @ 30 mls/hr 05/07/24 06:00 05/07/24 06:30 Sodium Chloride 0.9% IV 05/08/24 05:59 30 mls/hr .Q24H ION Administration Pertinent History/Comorbid Conditions* Medical History (Updated 04/18/24 @ 00:00 by JANE Haynes) Periorbital cellulitis of left eye GERD (gastroesophageal reflux disease) Obesity Lymphedema Surgical History (Updated 01/12/20 @ 12:13 by Tracey Pineda DO) History of hernia repair History of appendectomy Family History (Updated 09/10/19 @ 12:22 by Valentin Gonzalez MD) Diabetes Hypertension Social History Smoking and tobacco/nicotine status: never used tobacco/nicotine Second hand smoke exposure: No Alcohol intake: current Alcohol intake frequency: holidays/special occasions only Substance/Drug Use: unknown Adopted: No Caregiver/support person: No Lives independently: Yes Household members: spouse Housing: House Marital status: Number of children: 0 service: No Current occupational status: unemployed Current occupational exposures/hazards: No Pets and animals: Yes Pets & animals: dog(s) Do you think of yourself as: Straight/Heterosexual Current gender identity: Male Pertinent Exam Findings alert, oriented x 3, clear to auscultation bilaterally, regular rate & rhythm and operative site marked Recommendations Surgery/Procedure today Coding Level of Care Code Acute Code for Chg Fwd
[2024-05-07] MEDS: ceFAZolin 3,000 MG in sodium chloride 0.9% (plus) 100 ML 200 MG IV (07:05)
[2024-05-07] MEDS: lidocaine-epi 1% PF 1:200,000 30 mL SDV INJECTION (07:27)
--- NOTE | 2024-05-07 07:39 | PM.OP ---
Operative Report Date of procedure: May 07, 2024 Pre-op diagnosis: left scalp cyst Post-op diagnosis: same Post-op findings: Left scalp cyst completely removed Procedure done: Left scalp soft tissue excision 4x3cm Implants: NA Specimens removed/disposition: Left scalp cyst Pathology: Left scalp cyst sent to pathology Surgeon: Bertin Braun MD Cylinder Press Operator Helper: DINH Anesthesia: General Estimated blood loss (mL): 5 Complications: NA Findings: Left scalp cyst completely excised Condition: stable Disposition: same day Brief History: 33 yo male who presented with a left scalp cyst. Explained risks and benefits of soft tissue mass excision and patient agreed to proceed. Marked operative site in preop. Procedure: The patient was brought into the operating room table and placed supine. Preoperative Ancef was administered. SCDs were on and working. General anesthesia was induced. The scalp was clipped and prepped and draped in the usual sterile fashion. Local infiltration with 1% lidocaine was carried out. A 4 cm incision was performed right over the left scalp lesion. Electrocautery was used to dissect the cyst. Left scalp cyst was sent to pathology in its entirety. Adequate hemostasis was achieved using electrocautery. Scalp wound was irrigated. Wound was closed in 2 layers using 3-0 Vicryl and 3-0 nylon in an interrupted fashion. Antibiotic ointment was applied. The patient woke up from anesthesia without any complications.
[2024-05-07] MEDS: neomycin-poly-bacitracin oint 28 gm 3 APPLIC TOPICAL (07:51)
[2024-05-07] MEDS: fentaNYL 50 mcg/mL INJ 2mL IVP (08:19)
[2024-05-07] MEDS: oxyCODONE 5 mg IR Tab/Cap PO (09:20)
--- NOTE | 2024-05-07 13:29 | ANE.PACU2 ---
Inpatient post-anesthesia follow up: Airway intact: Yes Vital signs: Temperature 97.4 F Pulse Rate 69 Respiratory Rate 18 Blood Pressure 120/74 Pulse Oximetry 97 Oxygen Delivery Me thod Room Air Oxygen Flow Rate Fraction of Inspir ed Oxygen Hydration adequate: Yes Nausea and vomiting: No Pain level: 1 Mental status: Baseline
== END 2024-05-07 09:26 | disposition home or self-care (01) ==
PROVIDERS: PCP Nurse Practitioner; Visit Provider Student in an Organized Health Care Education/Training Program
PROC: (CPT 21014; principal; 2024-05-07 07:00)
DX: L72.11 Pilar cyst (principal); E66.01 Morbid (severe) obesity due to excess calories; Z68.42 Body mass index [BMI] 45.0-49.9, adult; K21.9 Gastro-esophageal reflux disease without esophagitis
CPT/HCPCS: 21014; 88304; J0690; J1100; J2405; J2704; J3010; J7030

== ENCOUNTER → 2024-05-19 08:45 | Outpatient (BNVA) | payer MEDICARE, SELFPAY | PROVIDERS: PCP Nurse Practitioner; Visit Provider Student in an Organized Health Care Education/Training Program | DX: L72.9 Follicular cyst of the skin and subcutaneous tissue, unspecified (principal); Z98.890 Other specified postprocedural states | CPT/HCPCS: 80053; 82306; 86003; 99024 ==

== ENCOUNTER 2024-06-06 08:19 | Emergency (ER) | payer MEDICARE, SELFPAY ==
--- NOTE | 2024-06-06 08:39 | USCV_ITS ---
Garo Scruggs Age: 33 Gender: M : 1990 Exam Date: 06/06/2024 09:08 Ordering Phys: Josué Canas DO Technologist: JARED Exam Location: [facility] [place] Indication: bilateral edema HISTORY: Lower extremity edema. PROCEDURES: Venous duplex imaging was performed in bilateral lower extremities. The following venous structures were evaluated: common femoral vein, profunda vein, proximal portion of the greater saphenous vein, superficial femoral vein, and the popliteal vein. In addition, the posterior tibial and peroneal trunk were evaluated. FINDINGS: Normal 2-D Doppler and augmentation and compressibility throughout the lower extremity venous structures. Additional imaging through the proximal calf veins also reveals no thrombus. Limited evaluation of the greater saphenous vein is patent with no thrombus. CONCLUSIONS Limited by body habitus. No DVT bilateral lower extremities. Bilateral subcutaneous lower extremity edema noted. Dr. Debra Azevedo DO (Electronically Signed) Final Date: 06 June 2024 10:30 S
[2024-06-06 08:41] VITALS: BP 146/70; PULSE 85; RESP 16; TEMP 36.6; O2SAT 98; BMI 46.3
--- NOTE | 2024-06-06 08:44 | W.ED.LOWEXIN ---
HPI - Extremity Injury (Lower) General: Chief Complaint: Extremity Problem,Nontraumatic Stated Complaint: lump rt leg Time Seen by Provider: 06/06/24 08:29 History of Present Illness: 33-year-old male presents to the emergency room with complaints of a lump on his right calf he is on his last few days. Patient has chronic venous stasis edema he has not had any history of DVTs he is not on any oral anticoagulants. No shortness of breath. He was recently started on topiramate for headaches, and his description of it sounds like he is having a migraine variant. He is not having any chest pain or significant shortness of breath or migraine at this time. Patient previously had a fracture to his left knee. He is not diabetic. Related Data Home Medications ?Medication ?Instructions ?Recorded ?Confirmed oxycodone 5 mg tablet 5 mg PO Q6H PRN Pain 06/06/24 06/06/24 Previous Rx's ?Medication ?Instructions ?Recorded acarbose 100 mg tablet 100 mg PO TID #90 tabs 05/19/24 furosemide 40 mg tablet 40 mg PO QAM #30 tabs 05/19/24 potassium chloride 10 mEq 10 meq PO DAILY #30 tabs 05/19/24 tablet,extended release(part/cryst) topiramate 25 mg tablet (Topamax) 25 mg PO BID #60 tabs 05/19/24 cholecalciferol (vitamin D3) 125 125 mcg PO BID #60 caps 05/21/24 mcg (5,000 unit) capsule Allergies Allergy/AdvReac Type Severity Reaction Status Date / Time Sulfa (Sulfonamide Allergy Intermediate ALGY-Hives Verified 05/19/24 12:59 Antibiotics) clindamycin Allergy Unknown ADR-Vomitin Verified 05/19/24 12:59 g raspberry Allergy Unknown Verified 05/19/24 12:59 Review of Systems Const: Denies: fever(s) or chills Card: Denies: chest pain Resp: Denies: dyspnea GI: Denies: abdominal pain : Denies: dysuria, urinary frequency or urinary urgency Musc: Reports: other (Severe chronic lymphedema lower extremities); Denies: neck pain or back pain Skin/Breast: Denies: rash PFSH ED PFSH: Medical History Periorbital cellulitis of left eye GERD (gastroesophageal reflux disease) Obesity Lymphedema Surgical History History of hernia repair History of appendectomy Family History Other Diabetes Hypertension Social History Smoking and tobacco/nicotine status: never used tobacco/nicotine Second hand smoke exposure: No Alcohol intake: current Alcohol intake frequency: holidays/special occasions only Substance/Drug Use: unknown Adopted: No Caregiver/support person: No Lives independently: Yes Household members: spouse Housing: House Marital status: Number of children: 0 service: No Current occupational status: unemployed Current occupational exposures/hazards: No Pets and animals: Yes Pets & animals: dog(s) Do you think of yourself as: Straight/Heterosexual Current gender identity: Male Physical Exam Const: COMMON NORMALS: no acute distress GENERAL APPEARANCE: cooperative and comfortable ORIENTATION/CONSCIOUSNESS: Yes awake, Yes oriented to person, Yes oriented to place and Yes oriented to time HENMT: COMMON NORMALS: normocephalic, atraumatic and hearing grossly normal bilaterally HEAD & SCALP: normocephalic and atraumatic Resp: COMMON NORMALS: normal respiratory effort, No retractions, No use of accessory muscles and clear to auscultation bilaterally AUSCULTATION: clear to auscultation bilaterally Cardio: COMMON NORMALS: regular rate, regular rhythm and No murmurs present (Cardio) RATE: regular rate RHYTHM: regular rhythm GI: COMMON NORMALS: Soft to palpation and No hepatosplenomegaly present AUSCULTATION: Yes normoactive bowel sounds PALPATION: Yes Soft to palpation, No Tenderness to palpation present (GI), No Guarding due to palpation present (GI) and Yes No hepatosplenomegaly present Extremity: COMMON NORMALS: normal to inspection and capillary refill normal OTHER: Mild tenderness superior aspect of the gastrocnemius muscle just distal to the popliteal fossa no redness no erythema no abrasions no signs of abscess or infection. Minimal discomfort no palpable masses or nodules Neuro: SENSORIUM/ORIENTATION: Yes oriented to person, Yes oriented to place and Yes oriented to time Skin: COMMON NORMALS: no rashes or lesions noted GENERAL SKIN EXAM: no rashes or lesions noted Course Vital Signs: Vital signs: Vital Signs Temperature 97.9 F 06/06/24 08:41 Pulse Rate 77 06/06/24 11:20 Respiratory Rate 16 06/06/24 08:41 Blood Pressure 123/70 06/06/24 11:20 Pulse Oximetry 98 06/06/24 11:20 MDM - Extremity Injury (Lower) Medical Decision Making Venous duplex is negative. No signs of DVT. I do not believe this is a gastrocnemius tear. He does not have any severe pain he has function with out discomfort with dorsi and plantarflexion on the left foot. Will discharge patient home have him follow-up with his primary care doctor no emergent findings at this time. Medical Records I reviewed the patient's medical records. Lab Data I reviewed the patient's lab results. 06/06/24 10:01 06/06/24 10:01 Laboratory Results WBC 8.46 10^3/uL (3.29-11.43) 06/06/24 10:01 RBC 5.53 10^6/uL (3.85-5.65) 06/06/24 10:01 Hgb 15.00 g/dL (11.27-16.99) 06/06/24 10:01 Hct 47.0 % (37-53) 06/06/24 10:01 MCV 85.0 fl (82-101) 06/06/24 10:01 MCH 27.1 pg (27-33) 06/06/24 10:01 MCHC 31.9 g/dL (30-55) 06/06/24 10:01 RDW 13.0 % (12.1-15.1) 06/06/24 10:01 Plt Count 271 10^3/cmm (157-399) 06/06/24 10:01 MPV 9.5 fL (7.4-10.4) 06/06/24 10:01 Neut % (Auto) 75.9 % 06/06/24 10:01 Lymph % (Auto) 14.3 % 06/06/24 10:01 [place] % (Auto) 6.3 % 06/06/24 10:01 Eos % (Auto) 2.5 % 06/06/24 10:01 Baso % (Auto) 0.6 % 06/06/24 10:01 Neut # (Auto) 6.43 10^3/uL (1.8-7.7) 06/06/24 10:01 Lymph # (Auto) 1.2 10^3/uL (0.8-4.8) 06/06/24 10:01 [place] # (Auto) 0.5 10^3/uL (0.2-0.9) 06/06/24 10:01 Eos # (Auto) 0.2 10^3/uL (0.0-0.8) 06/06/24 10:01 Baso # (Auto) 0.1 10^3/uL (0.0-0.1) 06/06/24 10:01 Nucleated RBC % (auto) 0 % 06/06/24 10:01 Nucleated RBCs # 0.0 /100WBC 06/06/24 10:01 Sodium 141 mmol/L (136-145) 06/06/24 10:01 Potassium 4.4 mmol/L (3.5-5.1) 06/06/24 10:01 Chloride 106 mmol/L (98-107) 06/06/24 10:01 Carbon Dioxide 25 mmol/L (22-29) 06/06/24 10:01 Anion Gap 14.4 (5-19) 06/06/24 10:01 BUN 16 mg/dL (6-20) 06/06/24 10:01 Creatinine 0.8 mg/dL (0.7-1.2) 06/06/24 10:01 GFR Calculation 110.0 mL/min (90-130) 06/06/24 10:01 Glucose 104 mg/dL (65-115) 06/06/24 10:01 Calculated Osmolality 293 mOsm/kg (285-295) 06/06/24 10:01 Calcium 8.8 mg/dL (8.5-10.5) 06/06/24 10:01 Total Bilirubin 0.2 mg/dL (0.15-1.2) 06/06/24 10:01 AST 17 U/L (0-40) 06/06/24 10:01 ALT 25 U/L (0-41) 06/06/24 10:01 Alkaline Phosphatase 71 U/L (40-130) 06/06/24 10:01 Total Protein 6.2 g/dL (6.6-8.7) L 06/06/24 10:01 Albumin 3.4 g/dL (3.5-5.2) L 06/06/24 10:01 Globulin 2.8 g/dL (1.3-4.6) 06/06/24 10:01 All radiology interpretation(s) finalized by discharge Discharge Plan Discharge Patient Disposition: Home Clinical Impression: Lymphedema Condition: Stable Prescriptions: No Action furosemide 40 mg tablet 40 mg PO QAM Qty: 30 2RF potassium chloride 10 mEq tablet,ER particles/crystals 10 meq PO DAILY Qty: 30 2RF topiramate [Topamax] 25 mg tablet 25 mg PO BID Qty: 60 0RF acarbose 100 mg tablet 100 mg PO TID Qty: 90 2RF Rx Instructions: take before food cholecalciferol (vitamin D3) 125 mcg (5,000 unit) capsule 125 mcg PO BID Qty: 60 2RF oxycodone 5 mg tablet 5 mg PO Q6H PRN (Reason: Pain) Discharge Orders: Discharge ED (Routine); Ordered 06/06/24 Ordered By: Josué Canas Referrals: Albino Iqbal FNP-C [Primary Care Provider] - Discharge Diet: Low Salt Discharge Activity: Increase activity as tolerated Patient Instructions: Lymphedema (ED), Opioid Safety, Pain Management Activity Restrictions/Additional Instructions: Thank you for choosing [facility] for your healthcare needs today. It is very important that you follow up as instructed or that you return to the Emergency Department should you have concerns or if your condition changes or worsens in any way. You were seen with complaint of left leg pain. Ultrasound did not show any clot white count was normal there is no sign of cellulitis in your leg. 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
[2024-06-06 10:05] LABS: Basophils # 0.1 10^3/uL (0.0-0.1); Basophils % 0.6 %; Eosinophils # 0.2 10^3/uL (0.0-0.8); Eosinophils % 2.5 %; Lymphocytes # 1.2 10^3/uL (0.8-4.8); Lymphocytes % 14.3 %; Mean Corpuscular HGB Conc 31.9 g/dL (30-55); Mean Corpuscular Hemoglobin 27.1 pg (27-33); Mean Platelet Volume 9.5 fL (7.4-10.4); Monocytes # 0.5 10^3/uL (0.2-0.9); Monocytes % 6.3 %; Neutrophils # 6.43 10^3/uL (1.8-7.7); Neutrophils % 75.9 %; Nucleated Red Blood Cells % 0 %; Platelet Count 271 10^3/cmm (157-399); Red Blood Count 5.53 10^6/uL (3.85-5.65); White Blood Count 8.46 10^3/uL (3.29-11.43)
[2024-06-06 10:23] LABS: Alanine Aminotransferase 25 U/L (0-41); Albumin Level 3.4 g/dL (3.5-5.2); Alkaline Phosphatase 71 U/L (40-130); Anion Gap 14.4 (5-19); Aspartate Amino Transferase 17 U/L (0-40); Blood Urea Nitrogen 16 mg/dL (6-20); Calcium 8.8 mg/dL (8.5-10.5); Carbon Dioxide 25 mmol/L (22-29); Chloride 106 mmol/L (98-107); Creatinine Clr Calc Pharmacy 181.1819; Globulin 2.8 g/dL (1.3-4.6); Glucose 104 mg/dL (65-115); Osmolality Calculated 293 mOsm/kg (285-295); Potassium 4.4 mmol/L (3.5-5.1); Sodium 141 mmol/L (136-145); Total Bilirubin 0.2 mg/dL (0.15-1.2); Total Protein 6.2 g/dL (6.6-8.7)
[2024-06-06 11:20] VITALS: BP 123/70; PULSE 77; O2SAT 98
== END 2024-06-06 11:21 | disposition home or self-care (01) ==
PROVIDERS: Emergency Provider Family Medicine; PCP Nurse Practitioner
DX: I89.0 Lymphedema, not elsewhere classified (principal)
CPT/HCPCS: 36415; 80053; 85025; 93970; 99284

== ENCOUNTER → 2024-08-11 14:34 | Outpatient (BNVA) | payer MEDICARE, SELFPAY | PROVIDERS: PCP Nurse Practitioner; Visit Provider Nurse Practitioner | DX: M25.511 Pain in right shoulder (principal); E55.9 Vitamin D deficiency, unspecified; E77.8 Other disorders of glycoprotein metabolism; E66.9 Obesity, unspecified; I89.0 Lymphedema, not elsewhere classified; I87.2 Venous insufficiency (chronic) (peripheral) | CPT/HCPCS: 80053; 82306 ==

== ENCOUNTER → 2024-08-19 08:51 | Outpatient (BNVA) | payer MEDICARE, SELFPAY | PROVIDERS: PCP Nurse Practitioner; Visit Provider Nurse Practitioner | DX: M25.511 Pain in right shoulder (principal); M75.101 Unspecified rotator cuff tear or rupture of right shoulder, not specified as traumatic | CPT/HCPCS: 73030 ==

== ENCOUNTER → 2024-10-27 08:08 | Outpatient (BNVA) | payer MEDICARE, SELFPAY | PROVIDERS: PCP Nurse Practitioner; Visit Provider Nurse Practitioner | DX: M79.642 Pain in left hand (principal) | CPT/HCPCS: 73130 ==

== ENCOUNTER 2025-01-15 09:26 | Emergency (ER) | payer MEDICARE, SELFPAY ==
--- NOTE | 2025-01-15 09:32 | XR_ITS ---
WS: [id number] XR knee RT 3V* [id number] REASON FOR EXAM: trauma FINDINGS: No acute fracture. Patella and tibial plateaus intact. Joint spaces are intact and well preserved. No radiopaque soft tissue foreign body. XR/XR knee RT 3V* [id number] IMPRESSION: No significant bone or joint abnormality.
[2025-01-15 09:33] VITALS: BP 139/70; PULSE 77; RESP 16; TEMP 36.7; O2SAT 98; BMI 46.0
--- OUTSIDE RECORDS SUMMARY | 2025-01-15 09:34 | XMS_ITS | Clinical Summary ---
Author Organization [facility] Address [address] [place] [address] Phone Care Team Providers Care Aml Analyst Name Role Phone Unavailable Primary Care Provider Unavailabl e Allergies Active Allergy Reactions Criticality Noted Date Comments Sulfa (Sulfonamide Antibiotics) Rash Low 11/28 Medications HYDROcodone-eugene taminophen (NORCO) 5-325 mg tablet Take 1 Tablet by mouth every 4 hours as needed for Pain, Moderate. 12/12/2018 Active pantoprazole (PROTONIX) 40 mg Tablet, Delayed Release (E.C.) Take 40 mg by mouth daily. 12/12/2018 Active ondansetron (ZOFRAN) 4 mg Tablet Take 4 mg by mouth every 8 hours as needed for Nausea/Emesi s. 12/12/2018 Active methylPREDNISol one (MEDROL DOSPACK) 4 mg Tablets, Dose Pack Take as per package instructions . 1 Package 0 12/12/2018 Active furosemide (LASIX) 40 mg tablet Take 40 mg by mouth daily. Active POTASSIUM CHLORIDE ORAL Take by mouth. Active OTHER Carb marciano to help lose weight Active Social History Tobacco Use Types Packs/Day Years Used Date Smoking Tobacco: Never Smokeless Tobacco: Current Tobacco Cessation:Ready to Q uit: Not Asked; Counseling Given: Not Answered Alcohol Use Standard Drinks/Week Comments Not Currently 0 (1 standard drink = 0.6 oz pur e alcohol) Feeling Safe Answer Date Recorded Are you in a relationship wi th someone who hurts you emotionally and/or physically? No 03/15/2023 Sex and Gender Information Value Date Recorded Sex Assigned at Not on file Legal Sex Male 3:22 AM WET PROCESS MILLER Gender Identity Not on file Sexual Orientation Not on file Last Filed Vital Signs Vital Sign Reading Time Taken Comments Blood Pressure 133/59 03/15/2023 12:30 PM WET PROCESS MILLER Pulse 90 03/15/2023 12:30 PM WET PROCESS MILLER Temperature 36.4 C (97.5 F) 03/15/2023 12:30 PM WET PROCESS MILLER Respiratory Rate 14 03/15/2023 12:3 0 PM WET PROCESS MILLER Oxygen Saturation 99% 03/15/2023 12: 30 PM WET PROCESS MILLER Inhaled Oxygen Concentration - - Weight 143.5 kg (316 lb 6.4 oz) 023 11:50 AM WET PROCESS MILLER Height 175.3 cm (5' 9 ) 03/15/2023 11:5 0 AM WET PROCESS MILLER Body Mass Index 46.72 03/15/2023 11:50 AM WET PROCESS MILLER Plan of Treatment Health Maintenance Due Date Last Done Comments DTAP/TDAP/TD VACCINES (1 - Tdap) 07/20/2007 HEPATITIS B VACCINES (1 of 3 - 19+ 3-dose series) 06/29 HPV VACCINES (1 - 3-dose SCDM series) 07/20/2015 INFLUENZA VACCINE (#1) 2024 Insurance [employer] DUAL COMPLETE PPO [facility] [id number] [place] [address]
--- OUTSIDE RECORDS SUMMARY | 2025-01-15 09:34 | XMS_ITS | Clinical Summary ---
Author Organization [facility] Address [address] [place] [address] Phone Care Team Providers Care Sales Officer Name Role Phone Unavailable Primary Care Provider Unavailabl e Allergies Active Allergy Reactions Criticality Noted Date Comments Sulfa (Sulfonamide Antibiotics) Rash Low 11/28 Medications traMADol (ULTRAM) 50 mg Oral tablet Take 1 Tab by mouth every 6 hours as needed for Pain. 20 Tab None 01/26/2013 Active HYDROcodone-eugene taminophen (NORCO) 5-325 mg tablet Take 1 Tablet by mouth every 4 hours as needed for Pain, Moderate. Active ondansetron (ZOFRAN) 4 mg Tablet Take 4 mg by mouth every 8 hours as needed for Nausea/Emesi s. Active pantoprazole (PROTONIX) 40 mg Tablet, Delayed Release (E.C.) Take 40 mg by mouth daily. Active methylPREDNISol one (MEDROL, PETER,) 4 mg Tablets, Dose Pack Take as per package instructions . 1 Package 12/12/2018 Active Social History Tobacco Use Types Packs/Day Years Used Date Smoking Tobacco: Never Smokeless Tobacco: Current Chew Alcohol Use Standard Drinks/Week Comments Yes 0 (1 standard drink = 0.6 oz pur e alcohol) Sex and Gender Information Value Date Recorded Sex Assigned at Not on file Legal Sex Male 3:05 PM CDT Gender Identity Not on file Sexual Orientation Not on file Last Filed Vital Signs Vital Sign Reading Time Taken Comments Blood Pressure 131/57 12/12/2018 5:30 PM CDT Pulse 64 01/26/2013 5:05 PM CDT Temperature 36.4 C (97.6 F) 12/12/2018 4:23 PM CDT Respiratory Rate 16 12/12/2018 5:30 PM CDT Oxygen Saturation 99% 12/12/2018 5:30 PM CDT Inhaled Oxygen Concentration - - Weight 145.5 kg (320 lb 12.8 oz) 2018 11:43 AM CDT Height 170.2 cm (5' 7 ) 12/12/2018 11:4 3 AM CDT Body Mass Index 50.24 12/12/2018 11:43 AM CDT Plan of Treatment Health Maintenance Due Date Last Done Comments DTAP/TDAP/TD VACCINES (1 - Tdap) 07/20/2007 HEPATITIS B VACCINES (1 of 3 - 19+ 3-dose series) 06/29 HPV VACCINES (1 - 3-dose SCDM series) 07/20/2015 INFLUENZA VACCINE (#1) 2024
[2025-01-15 10:38] LABS: Hematocrit 42.6 % (37-53); Hemoglobin 13.30 g/dL (11.27-16.99); Mean Corpuscular HGB Conc 31.2 g/dL (30-55); Mean Corpuscular Hemoglobin 26.4 pg (27-33); Mean Corpuscular Volume 84.7 fl (82-101); Nucleated Red Blood Cells % 0 %; Platelet Count 280 10^3/cmm (157-399); Red Blood Count 5.03 10^6/uL (3.85-5.65); White Blood Count 8.08 10^3/uL (3.29-11.43)
--- NOTE | 2025-01-15 10:55 | W.ED.EXTPRO ---
HPI - Extremity Problem General: Chief complaint: Extremity Problem,Nontraumatic Stated complaint: rt knee inj Time Seen by Provider: 01/15/25 09:32 History of Present Illness: 34-year-old male presents emergency room complaining of right knee pain that he has had for several weeks. No injury that he can recall no specific trauma has not had any fever sweats or chills. Patient has significant chronic lymphedema of the lower extremities bilaterally which is unchanged. No history of DVT or PE no chest pain or shortness of breath no significant increase or change in the swelling beyond his baseline. Associated symptoms: Deny chest pain, fever(s) or rash Related Data Home Medications ?Medication ?Instructions ?Recorded ?Confirmed acetaminophen 500 mg tablet 500 mg PO QID PRN Fever Or Pain 01/15/25 01/15/25 (Tylenol Extra Strength) Previous Rx's ?Medication ?Instructions ?Recorded cholecalciferol (vitamin D3) 125 125 mcg PO BID #60 caps 10/27/24 mcg (5,000 unit) capsule furosemide 40 mg tablet 40 mg PO QAM #30 tabs 10/27/24 potassium chloride 10 mEq 10 meq PO DAILY #30 tabs 10/27/24 tablet,extended release(part/cryst) diclofenac sodium 75 mg 75 mg PO Q12H PRN pain #20 tabs 01/15/25 tablet,delayed release Allergies Allergy/AdvReac Type Severity Reaction Status Date / Time Sulfa (Sulfonamide Allergy Intermediate ALGY-Hives Verified 10/27/24 07:59 Antibiotics) clindamycin Allergy Unknown ADR-Vomitin Verified 10/27/24 07:59 g raspberry Allergy Unknown Verified 10/27/24 07:59 Review of Systems Const: Denies: fever(s) or chills Card: Denies: chest pain Resp: Denies: dyspnea GI: Denies: abdominal pain : Denies: dysuria, urinary frequency or urinary urgency Musc: Denies: neck pain or back pain Skin/Breast: Denies: rash PFSH ED PFSH: Medical History Periorbital cellulitis of left eye GERD (gastroesophageal reflux disease) Obesity Lymphedema Surgical History History of hernia repair History of appendectomy Family History Other Diabetes Hypertension Social History Smoking and tobacco/nicotine status: current every day tobacco/nicotine user Second hand smoke exposure: No Alcohol intake: current Alcohol intake frequency: holidays/special occasions only Substance/Drug Use: unknown Adopted: No Caregiver/support person: No Lives independently: Yes Household members: spouse Housing: House Marital status: Number of children: 0 service: No Current occupational status: unemployed Current occupational exposures/hazards: No Pets and animals: Yes Pets & animals: dog(s) Do you think of yourself as: Straight/Heterosexual Current gender identity: Male Physical Exam Const: COMMON NORMALS: no acute distress GENERAL APPEARANCE: cooperative and comfortable ORIENTATION/CONSCIOUSNESS: Yes awake, Yes oriented to person, Yes oriented to place and Yes oriented to time HENMT: COMMON NORMALS: normocephalic, atraumatic and hearing grossly normal bilaterally HEAD & SCALP: normocephalic and atraumatic Resp: COMMON NORMALS: normal respiratory effort, No retractions, No use of accessory muscles and clear to auscultation bilaterally AUSCULTATION: clear to auscultation bilaterally Cardio: COMMON NORMALS: regular rate, regular rhythm and No murmurs present (Cardio) RATE: regular rate RHYTHM: regular rhythm GI: COMMON NORMALS: Soft to palpation and No hepatosplenomegaly present AUSCULTATION: Yes normoactive bowel sounds PALPATION: Yes Soft to palpation, No Tenderness to palpation present (GI), No Guarding due to palpation present (GI) and Yes No hepatosplenomegaly present Extremity: COMMON NORMALS: normal to inspection, capillary refill normal, no clubbing, cyanosis or edema, no calf tenderness and no pedal edema Neuro: SENSORIUM/ORIENTATION: Yes oriented to person, Yes oriented to place and Yes oriented to time Skin: COMMON NORMALS: no rashes or lesions noted GENERAL SKIN EXAM: no rashes or lesions noted Course Vital Signs: Vital signs: Vital Signs Temperature 98.0 F 01/15/25 09:33 Pulse Rate 77 01/15/25 09:33 Respiratory Rate 16 01/15/25 09:33 Blood Pressure 139/70 01/15/25 09:33 Pulse Oximetry 98 01/15/25 09:33 Oxygen Delivery Me thod Room Air 01/15/25 09:33 MDM - Extremity (Nontraumatic) Medical Decision Making Difficult to examine knee due to his extensive lymphedema. He is able to flex independently. I cannot appreciate a joint effusion but with the degree of lymphedema he has it is difficult to assess there is no overlying redness or erythema no signs of infection his white count is normal sed rate is only 15. Discussed leg brace with him but again because of his lymphedema and be difficult to get 1 to fit properly he has crutches at home recommend that he not bear weight on the knee to allow it time to rest. Will start him on anti-inflammatories and refer to orthopedics Medical Records I reviewed the patient's medical records. Lab Data I reviewed the patient's lab results. 01/15/25 10:30 Radiology Impressions Knee X-Ray 01/15/25 09:32 IMPRESSION: No significant bone or joint abnormality. Laboratory Results WBC 8.08 10^3/uL (3.29-11.43) 01/15/25 10:30 RBC 5.03 10^6/uL (3.85-5.65) 01/15/25 10:30 Hgb 13.30 g/dL (11.27-16.99) 01/15/25 10:30 Hct 42.6 % (37-53) 01/15/25 10:30 MCV 84.7 fl (82-101) 01/15/25 10:30 MCH 26.4 pg (27-33) L 01/15/25 10:30 MCHC 31.2 g/dL (30-55) 01/15/25 10:30 RDW 13.6 % (12.1-15.1) 01/15/25 10:30 Plt Count 280 10^3/cmm (157-399) 01/15/25 10:30 MPV 9.0 fL (7.4-10.4) 01/15/25 10:30 Neut % (Auto) 79.2 % 01/15/25 10:30 Lymph % (Auto) 11.6 % 01/15/25 10:30 [place] % (Auto) 5.9 % 01/15/25 10:30 Eos % (Auto) 2.5 % 01/15/25 10:30 Baso % (Auto) 0.6 % 01/15/25 10:30 Neut # (Auto) 6.39 10^3/uL (1.8-7.7) 01/15/25 10:30 Lymph # (Auto) 0.9 10^3/uL (0.8-4.8) 01/15/25 10:30 [place] # (Auto) 0.5 10^3/uL (0.2-0.9) 01/15/25 10:30 Eos # (Auto) 0.2 10^3/uL (0.0-0.8) 01/15/25 10:30 Baso # (Auto) 0.1 10^3/uL (0.0-0.1) 01/15/25 10:30 Nucleated RBC % (auto) 0 % 01/15/25 10:30 Nucleated RBCs # 0.0 /100WBC 01/15/25 10:30 ESR 15 mm/hr (0-10) H 01/15/25 10:30 All radiology interpretation(s) finalized by discharge Discharge Plan Discharge Patient Disposition: Home Clinical Impression: Knee pain, right Condition: Stable Prescriptions: New diclofenac sodium 75 mg tablet,delayed release (DR/EC) 75 mg PO Q12H PRN (Reason: pain) Qty: 20 0RF No Action furosemide 40 mg tablet 40 mg PO QAM Qty: 30 5RF potassium chloride 10 mEq tablet,ER particles/crystals 10 meq PO DAILY Qty: 30 5RF cholecalciferol (vitamin D3) 125 mcg (5,000 unit) capsule 125 mcg PO BID Qty: 60 5RF acetaminophen [Tylenol Extra Strength] 500 mg Tablet 500 mg PO QID PRN (Reason: Fever Or Pain) Discharge Orders: Discharge ED (Routine); Ordered 01/15/25 Ordered By: Josué Canas Referrals: Albino Iqbal, CERTIFIED REGISTERED LOCKSMITH-C [Primary Care Provider, Family Practice] Discharge Diet: Usual diet Discharge Activity: Increase activity as tolerated Patient Instructions: Opioid Safety, Pain Management, Patient Portal & Shruthi Instructions Activity Restrictions/Additional Instructions: Thank you for choosing [facility] for your healthcare needs today. It is very important that you follow up as instructed or that you return to the Emergency Department should you have concerns or if your condition changes or worsens in any way. Emergency department visits are focused on emergent conditions, in some cases you may require further evaluation on an outpatient basis. You were seen in the emergency room with complaint of right knee pain. X-ray of your right knee did not show any acute fractures. There is no sign of infection white count and sed rate were normal. Because of your lymphedema is difficult to fit a brace. Recommend nonweightbearing at least at times to give the knee some rest. Case management will make arrangements for a follow-up with orthopedics you can use diclofenac as needed (Please note that included in your discharge packet is information concerning opioid safety and pain management. This information is given to all patients were discharged from the ER regardless of their discharge diagnosis or the medicines they usually take or are prescribed.) Print Language: Fijian Coding Level of Care Code ED Industrial Waste Treatment Technician for Tim Wood
--- NOTE | 2025-01-15 11:55 | DCPLANNER ---
messaged ortho for er f/u
== END 2025-01-15 11:06 | disposition home or self-care (01) ==
PROVIDERS: Emergency Provider Family Medicine; PCP Nurse Practitioner
DX: M25.561 Pain in right knee (principal); Z72.0 Tobacco use
CPT/HCPCS: 36415; 73562; 85025; 85651; 96372; 99284; J1885

== ENCOUNTER → 2025-01-26 09:56 | Outpatient (BNVA) | payer MEDICARE, SELFPAY | PROVIDERS: PCP Nurse Practitioner; Visit Provider Specialist | DX: M25.561 Pain in right knee (principal); I87.2 Venous insufficiency (chronic) (peripheral); E66.813 Obesity, class 3; Z68.42 Body mass index [BMI] 45.0-49.9, adult | CPT/HCPCS: 73562; 99204 ==

== ENCOUNTER → 2025-02-04 10:13 | Outpatient (BNVA) | payer MEDICARE, SELFPAY | PROVIDERS: PCP Nurse Practitioner; Visit Provider Thoracic Surgery (Cardiothoracic Vascular Surgery) | DX: I96 Gangrene, not elsewhere classified (principal); I89.0 Lymphedema, not elsewhere classified; L97.812 Non-pressure chronic ulcer of other part of right lower leg with fat layer exposed | CPT/HCPCS: 11042; 97605; 99203; A6237; A6250 ==

== ENCOUNTER → 2025-02-09 14:42 | Outpatient (BNVA) | payer MEDICARE, SELFPAY | PROVIDERS: PCP Nurse Practitioner; Visit Provider Thoracic Surgery (Cardiothoracic Vascular Surgery) | DX: I96 Gangrene, not elsewhere classified (principal); I89.0 Lymphedema, not elsewhere classified; L97.812 Non-pressure chronic ulcer of other part of right lower leg with fat layer exposed | CPT/HCPCS: 11042 ==

== ENCOUNTER → 2025-02-16 14:46 | Outpatient (BNVA) | payer MEDICARE, SELFPAY | PROVIDERS: PCP Nurse Practitioner; Visit Provider Thoracic Surgery (Cardiothoracic Vascular Surgery) | DX: I96 Gangrene, not elsewhere classified (principal); I89.0 Lymphedema, not elsewhere classified; L97.812 Non-pressure chronic ulcer of other part of right lower leg with fat layer exposed | CPT/HCPCS: 11042; A6446 ==

== ENCOUNTER → 2025-02-23 08:44 | Outpatient (BNVA) | payer MEDICARE, SELFPAY | PROVIDERS: PCP Nurse Practitioner; Visit Provider Thoracic Surgery (Cardiothoracic Vascular Surgery) | DX: I96 Gangrene, not elsewhere classified (principal); I89.0 Lymphedema, not elsewhere classified; L97.811 Non-pressure chronic ulcer of other part of right lower leg limited to breakdown of skin | CPT/HCPCS: 97597 ==

== ENCOUNTER → 2025-03-02 08:03 | Outpatient (BNVA) | payer MEDICARE, SELFPAY | PROVIDERS: PCP Nurse Practitioner; Visit Provider Thoracic Surgery (Cardiothoracic Vascular Surgery) | DX: I96 Gangrene, not elsewhere classified (principal); I89.0 Lymphedema, not elsewhere classified; L97.811 Non-pressure chronic ulcer of other part of right lower leg limited to breakdown of skin | CPT/HCPCS: 97597 ==

== ENCOUNTER → 2025-03-09 08:26 | Outpatient (BNVA) | payer MEDICARE, MEDICAID, SELFPAY | PROVIDERS: PCP Nurse Practitioner; Visit Provider Thoracic Surgery (Cardiothoracic Vascular Surgery) | DX: I89.0 Lymphedema, not elsewhere classified (principal); L97.811 Non-pressure chronic ulcer of other part of right lower leg limited to breakdown of skin | CPT/HCPCS: 97597; A6212 ==

== ENCOUNTER → 2025-03-16 08:28 | Outpatient (BNVA) | payer MEDICARE, MEDICAID, SELFPAY | PROVIDERS: PCP Nurse Practitioner; Visit Provider Thoracic Surgery (Cardiothoracic Vascular Surgery) | DX: I96 Gangrene, not elsewhere classified (principal); I89.0 Lymphedema, not elsewhere classified; L97.811 Non-pressure chronic ulcer of other part of right lower leg limited to breakdown of skin | CPT/HCPCS: 97597; A6219; J9999 ==

== ENCOUNTER → 2025-03-23 08:27 | Outpatient (BNVA) | payer MEDICARE, MEDICAID, SELFPAY | PROVIDERS: PCP Nurse Practitioner; Visit Provider Thoracic Surgery (Cardiothoracic Vascular Surgery) | DX: Z09 Encounter for follow-up examination after completed treatment for conditions other than malignant neoplasm (principal); Z87.2 Personal history of diseases of the skin and subcutaneous tissue | CPT/HCPCS: 99213 ==

== ENCOUNTER 2025-04-08 13:17 | Outpatient (RCR) | payer MEDICARE, MEDICAID, SELFPAY | END 2025-04-29 23:59 | disposition home or self-care (01) | LOC: SPT 13:17 | PROVIDERS: PCP Nurse Practitioner; Visit Provider Physician Assistant | DX: I89.0 Lymphedema, not elsewhere classified (principal) | CPT/HCPCS: 97161 ==